=== PATIENT | male | born 1940 | race Caucasian/White ===

== ENCOUNTER 2021-09-29 13:41 | Inpatient (IN) | payer MEDICARE, OTHER ==
[~2021-09-29] VITALS: Ht 162.6 cm; Wt 60.3 kg
--- OUTSIDE RECORDS SUMMARY | 2021-09-29 13:47 | XMS REPORT ---
Discharge Summary 2.1 Created on: 09/28/2021 DULCE REVELES : 1940 Sex: Male Author Author DULCE ARIZA Organization Unknown Address [address] [facility] [address] [place], [place] [id number] Care Team Providers Care Jr. Java Developer Name Role Phone Xwatchlist DIRK Lott MD HOSPITALIS Attending SHYANN VIEYRA DO ER Erdoc1 ZEKE AREVALO MD [facility] Functional Status No Data Found Immunization Immunization Date Status Additional Notes Code Code System Pneumococcal conjuga te PCV 13 Pneumococcal conjugate PCV 13 2016 Completed 133 CVX Influenza, high dose seasonal Influenza, high dose seasonal 2013 Completed 135 CVX Influenza, high dose seasonal Influenza, high dose seasonal 2015 Completed 135 CVX Influenza, high dose seasonal Influenza, high dose seasonal 2016 Completed 135 CVX Influenza, high dose seasonal Influenza, high dose seasonal 2017 Completed 135 CVX Influenza, seasonal, injectable Influenza, seasonal, injectable /08/2014 Completed 141 CVX Mental Status No Data Found Results .CULTURE BLOOD ID PANEL - Collect Date/T namita: 09/19/2021 08:18 Major Wunsch-Brautkleid ID: [id number] [address] [facility] [address], [place], [place], [id number] LOINC: Test Value Unit Reference Range Code Code System KPC (carbapenem-res) N/A NEG: Not Detected mecA (methicillin-r) N/A NEG: Not Detected Brunilda/B (vanco-resis) N/A NEG: Not Detected Enterococcus Not Detected NEG: Not Detected Listeria monocytoge Not Detected NEG: Not Detected Staphylococcus Not Detected NEG: Not Detected 4059-2 LOINC Staph aureus Not Detected NEG: Not Detected 4059-2 LOINC Streptococcus Not Detected NEG: Not Detected Strep agalact (GrpB) Not Detected NEG: Not Detected Strep pneumoniae Not Detected NEG: Not Detected Strep pyogene (GrpA) Not Detected NEG: Not Detected Acinetobacter jack Not Detected NEG: Not Detected Enterobacteriaceae Not Detected NEG: Not Detected Entero cloacae cmplx Not Detected NEG: Not Detected Escherichia coli Not Detected NEG: Not Detected Klebsiella oxytoca Not Detected NEG: Not Detected Klebsiella pneumonia Not Detected NEG: Not Detected Proteus Not Detected NEG: Not Detected Serratia marcescens Not Detected NEG: Not Detected Haemophilus influen Not Detected NEG: Not Detected Neisseria meningiti Not Detected NEG: Not Detected Pseudomonas aerugino Not Detected NEG: Not Detected Alejandra albicans Not Detected NEG: Not Detected Alejandra glabrata Not Detected NEG: Not Detected Alejandra krusei Not Detected NEG: Not Detected Alejandra parapsilosis Not Detected NEG: Not Detected Alejandra tropicalis Not Detected NEG: Not Detected BEDSIDE GLUCOSE - Collect Date/Time: 22:57 [facility] [employer] ID: [id number] [address] [facility] [address], [place], [id number] LOINC: 54567-3 Test Value Unit Reference Range Code Code System GLUCOSE POCT 114 MG/DL L=70 H=100 4 1653-7 LOINC BASIC METABOLIC PANEL - Collect Date/Juvenal e: 09/18/2021 09:34 [facility] [employer] ID: [id number] [address] [facility] [address], [place], [place], [id number] LOINC: 41522-7 Test Value Unit Reference Range Code Code System GLUCOSE 131 MG/DL L=74 H=100 2 345-7 LOINC SODIUM 139 MEQ/L L=135 H=145 2 951-2 LOINC POTASSIUM 3.8 MEQ/L L=3.5 H=5.1 2 823-3 LOINC CHLORIDE 107 MEQ/L L=98 H=107 2 075-0 LOINC CO2 28 MEQ/L L=22 H=30 20 28-9 LOINC BUN 18 MG/DL L=9 H=20 30 94-0 LOINC CREATININE 0.80 MG/DL L=0.70 H=1.30 2160-0 LOINC CALCIUM 8.9 MG/DL L=8.6 H=10.3 24947-1 LOINC AGE 81 yrs GFR NonAA 93 GFR AA 113 eGFR 93 mL/min/1.7 eGFR AA* >60 CBC W/ AUTO DIFF (RFLX MAN DIFF IF IND) - Collect Date/Time: 09/18/2021 09:34 [facility] [employer] ID: [id number] [address], [place], [place], [phone] LOINC: 17039-6 Test Value Unit Reference Range Code Code System WBC 7.0 TH/CMM L=4.5 H=10.8 80497-4 LOINC RBC 2.97 ML/CMM L=4.70 H=6.10 789-8 LOINC HGB 8.8 G/DL L=14.0 H=18.0 7 18-7 LOINC HCT 29.0 % L=42.0 H=52.0 4544 -3 LOINC MCV 98 FL L=81 H=99 MCH 29.6 PG L=27.0 H=33.0 MCHC 30.3 G/DL L=31.0 H=36.0 RDW SD 53 FL L=36 H=50 RDW CV 14.8 % L=0.0 H=14.8 MPV 10.2 FL L=9.3 H=12.5 PLT 181 TH/CMM L=130 H=440 777-3 LOINC NRBC# 0.00 TH/CMM L=0.00 H=0.00 NRBC% 0.0 /100WBC L=0.0 H=2.0 %NEUT 70.2 % %LYMP 20.0 % %MONO 5.5 % %EOS 3.0 % %BASO 1.0 % #NEUT 4.94 TH/CMM L=2.10 H=8.20 #LYMP 1.41 TH/CMM L=0.90 H=5.20 #MONO 0.39 TH/CMM L=0.16 H=1.00 #EOS 0.21 TH/CMM L=0.00 H=0.80 #BASO 0.07 TH/CMM L=0.00 H=0.20 MANUAL DIFF NOT IND LACTIC ACID - Collect Date/Time: 06:05 [facility] ID: [id number] [address] [facility] [address], [place], [place], [id number] LOINC: 2524-7 Test Value Unit Reference Range Code Code System LACTIC ACID 0.8 mmol/L L=0.7 H=2.1 2524-7 LOINC LACTIC ACID - Collect Date/Time: 22:40 [facility] ID: [id number] [address] [facility] [address] [place], [place], [id number] LOINC: 2524-7 Test Value Unit Reference Range Code Code System LACTIC ACID 2.0 mmol/L L=0.7 H=2.1 2524-7 LOINC UA ROUTINE C&S IF IND - Collect Date/Juvenal e: 09/17/2021 18:00 [facility] ID: [id number] [address] [facility] [address], [place], [place], [id number] LOINC: 45490-9 Test Value Unit Reference Range Code Code System COLOR Yellow NL: YELLOW CLARITY Ex. Turbid NL: CLEAR SPEC GRAV 1.017 NL: 1.002 - 1.022 pH 8.5 NL: 5 - 9 PROTEIN 70 NL: NEGATIVE mg/dl GLUCOSE Normal NL: NEGATIVE mg/dl KETONE Negative NL: NEGATIVE mg/dl BILIRUBIN Negative NL: NEGATIVE BLOOD Trace NL: NEGATIVE NITRITE 2+ NL: NEGATIVE LEUK SCREEN 500 NL: NEGATIVE Micro Indicated? MICRO IND RBC/HPF 11-20 NL: NONE SEEN WBC/HPF TNTC NL: NONE SEEN WBC CLUMP/HPF Present NL: NONE SEEN BACTERIA/HPF 1+ NL: NONE SEEN BUDDING YEAST/HPF NL: NONE SEEN HYPHAE YEAST/HPF NL: NONE SEEN SQUAMOUS EPI/LPF None Seen NL: NONE SEEN TRANSITION EPI/HPF NL: NONE SEEN RENAL EPI/HPF NL: NONE SEEN MUCOUS/LPF NL: NONE SEEN TRICHOMONAS/HPF NL: NONE SEEN HYALINE CAST/LPF NL: NONE SEEN EPITH CAST/LPF NL: NONE SEEN WBC CAST/LPF NL: NONE SEEN RBC CAST/LPF NL: NONE SEEN GRANULAR CAST/LPF NL: NONE SEEN FATTY CAST/LPF NL: NONE SEEN WAXY CAST/LPF NL: NONE SEEN TRI PHOS ACE/HPF NL: NONE SEEN CA OX ACE/HPF NL: NONE SEEN URIC ACID ACE/HPF NL: NONE SEEN AMORPHOUS ACE/HPF NL: NONE SEEN CULT SET UP? YES CBC W/ AUTO DIFF (RFLX MAN DIFF IF IND) - Collect Date/Time: 09/17/2021 17:43 [facility] ID: [id number] [address], [place], [place], [id number] LOINC: 57255-5 Test Value Unit Reference Range Code Code System WBC 12.2 TH/CMM L=4.5 H=10.8 58772-5 LOINC RBC 2.94 ML/CMM L=4.70 H=6.10 789-8 LOINC HGB 8.8 G/DL L=14.0 H=18.0 7 18-7 LOINC HCT 28.1 % L=42.0 H=52.0 4544 -3 LOINC MCV 96 FL L=81 H=99 MCH 29.9 PG L=27.0 H=33.0 MCHC 31.3 G/DL L=31.0 H=36.0 RDW SD 51 FL L=36 H=50 RDW CV 14.7 % L=0.0 H=14.8 MPV 10.6 FL L=9.3 H=12.5 PLT 214 TH/CMM L=130 H=440 777-3 LOINC NRBC# 0.00 TH/CMM L=0.00 H=0.00 NRBC% 0.0 /100WBC L=0.0 H=2.0 %NEUT 79.3 % %LYMP 14.7 % %MONO 4.7 % %EOS 0.6 % %BASO 0.4 % #NEUT 9.70 TH/CMM L=2.10 H=8.20 #LYMP 1.80 TH/CMM L=0.90 H=5.20 #MONO 0.58 TH/CMM L=0.16 H=1.00 #EOS 0.07 TH/CMM L=0.00 H=0.80 #BASO 0.05 TH/CMM L=0.00 H=0.20 MANUAL DIFF NOT IND LIPASE - Collect Date/Time: 09/17/2021 1 7:43 [facility] ID: [id number] [address] [facility] [address], [place], [place], [id number] LOINC: 3040-3 Test Value Unit Reference Range Code Code System LIPASE 38 U/L L=23 H=300 304 0-3 LOINC LACTIC ACID - Collect Date/Time: 17:43 [facility] ID: [id number] [address] [facility] [address], [place], [place], [id number] LOINC: 2524-7 Test Value Unit Reference Range Code Code System LACTIC ACID 2.6 mmol/L L=0.7 H=2.1 2524-7 LOINC PRO BNP - Collect Date/Time: 09/17/2021 17:43 [facility] [employer] ID: [id number] [address] [facility] [address], [place], [place], [id number] LOINC: 19074-8 Test Value Unit Reference Range Code Code System PRO BNP 793 PG/ML L=0 H=450 3 0934-4 LOINC TROPONIN-I ADV - Collect Date/Time: 08/31 17:43 [facility] ID: [id number] [address] [facility] [address], [place], [place], [id number] LOINC: 54429-6 Test Value Unit Reference Range Code Code System TROPONIN-I AD < 0.034 ng/mL L=0.000 H=0.034 47784-9 LOINC COMPREHENSIVE METABOLIC PANEL - Collect Date/Time: 09/17/2021 17:43 [facility] [employer] ID: [id number] [address] [facility] [address], [place], [place], [id number] LOINC: 01274-7 Test Value Unit Reference Range Code Code System GLUCOSE 119 MG/DL L=74 H=100 2 345-7 LOINC SODIUM 137 MEQ/L L=135 H=145 2 951-2 LOINC POTASSIUM 4.2 MEQ/L L=3.5 H=5.1 2 823-3 LOINC CHLORIDE 104 MEQ/L L=98 H=107 2 075-0 LOINC CO2 28 MEQ/L L=22 H=30 20 28-9 LOINC BUN 26 MG/DL L=9 H=20 30 94-0 LOINC CREATININE 0.90 MG/DL L=0.70 H=1.30 2160-0 LOINC SGOT/AST 31 IU/L L=17 H=59 192 0-8 LOINC SGPT/ALT 26 IU/L L=0 H=50 174 2-6 LOINC ALK PHOS 72 IU/L L=38 H=126 67 68-6 LOINC TOTAL PROTEIN 6.0 G/DL L=6.3 H=8.2 28 85-2 LOINC ALBUMIN 3.4 G/DL L=3.5 H=5.0 17 51-7 LOINC TOTAL BILI 0.5 MG/DL L=0.2 H=1.3 1 975-2 LOINC CALCIUM 9.9 MG/DL L=8.6 H=10.3 13095-4 LOINC AGE 81 yrs GFR NonAA 81 GFR AA 98 eGFR 81 mL/min/1.7 eGFR AA* >60 CT HEAD W/O CONTRAST - Completed: 2020 18:24 LOINC: EXAMINATION:CT HEAD W/O CONTRAST REASON FOR EXAM:Reason for Test: Altered Mental Status/memory loss, stroke protocol COMPARISON:11/07/2020TECHNIQUE:Noncontrast CT of the head. Automated exposure control was performed using [employer] Dose Management, which adjusts mA and/or kV according to patient size.FINDINGS:No acute intracranial hemorrhage, mass effect, or midline shift.Sulcal and ventricular prominence consistent with volume loss. Nonspecific periventricular and deep white matter hypoattenuation, given the patient's age the most likely etiology is small vessel ischemic changes. The basal cisterns are patent.Intracranial atherosclerosis. Right basal ganglia chronic lacunar infarct. Additional smaller bilateral basal ganglia subcentimeter hypodensities which may represent perivascular spaces or very small chronic lacunar infarcts. Partial opacification of the bilateral mastoid air cells.Low-grade paranasal sinus mucosal thickening.IMPRESSION:No acute intracranial hemorrhage or mass effect.Additional findings as above. Early report provided by vR. Reviewed and Electronically Signed by: JOHN Ojedaigned Date/Time: 09/18/2021 8:05 AMJob ID#: [id number] CX CHEST 1 VIEW - Completed: 09/17/2021 19:13 LOINC: EXAMINATION:CX CHEST 1 VIEWREASON FOR EX AM:weakness; COMPARISON:May 28, 2021FINDINGS:The heart size, pulmonary vascularity and mediastinum stable. There is hyperexpansion of the lungs with flattening of the diaphragms. There is a vertical sharp line overlying the right lung laterally. There are lung markings peripheral to this. No significant left-sided pneumothorax is seen. No pleural effusion is evident. No airspace disease or consolidation is evident.IMPRESSION:1.There is a vertical sharp line overlying the right lung laterally. This may represent a skin fold as there are lung markings peripheral to this. A small loculated pneumothorax would be less likely. 2.Follow-up is recommended. 3.There is a background of chronic obstructive lung disease with flattening of the diaphragms. Reviewed and Electronically Signed by: Kevin Sosa MD DABORLANDOigned Date/Time: 09/18/2021 8:48 AMJob ID#: [id number] Social History Type Status Start Date End Date Code Code System Smoking History Never smoker (Never Smoked ) 625254728 SNOMED-CT Smoking History Former smoker 7520202 SNOMED-CT Vital Signs Vital Sign Value Unit Elmore Value Elmore Unit Date/Time Recent/Initial? Code Cod e System Body Mass Index 23.60 kg/m2 09/17/2021 23:43 Initial 71998-2 LOINC Systolic Blood Pressure 131 mm[Hg] 09/19/2021 15:55 Most Recent 8480-6 LOINC Diastolic Blood Pressure 60 mm[Hg] 09/19/2021 15:55 Most Recent 8462-4 LOINC Systolic Blood Pressure 107 mm[Hg] 09/17/2021 23:43 Initial 8480-6 LOINC Diastolic Blood Pressure 42 mm[Hg] 09/17/2021 23:43 Initial 8462-4 LOINC Body Surface Area 1.68 m2 09/17/2021 23:43 Initial 3140-1 LOINC Height 162.5600 cm 64.00 in 09/17/2021 23:43 Initial 8302-2 LOINC O2 Saturation 98 % 09/19/2021 15:55 Most Recent 82519-2 LOINC O2 Saturation 98 % 09/17/2021 23:43 Initial 63006-6 LOINC Pulse 53.0 /min 1 15:55 Most Recent 8867-4 LOINC Pulse 57.0 /min 1 23:43 Initial 8867-4 LOINC Respiration 20 /min 09/19/2021 15:55 Most Recent 9279-1 LOINC Respiration 16 /min 09/17/2021 23:43 Initial 9279-1 LOINC Temperature 36.3 Judy 97.3 09/19/2021 15:55 Most Recent 8310-5 LOINC Temperature 36.5 Juyd 97.7 09/17/2021 23:43 Initial 8310-5 LOINC Weight 62.37 kg 137.50 lbs 09/17/2021 23:43 Initial 65593-8 LOINC Assessment You had the following problems: UTI AMS Assessment and Plan: 1. Acute cystitis with resultind SEPSIS and hypotension: will continue IVF -continue Rocephin -follow culture 2. HTN: continue home meds 3. prior CVA: continue meds -monitor for changes 4. DM type II: continue PO meds -Accucheck AM and trend 5. Anemia: stable, no symptoms 6. Dispo: monitor response and consider transition to PO and DC when recovered Assessment and Plan: 1. Acute cystitis with resultind SEPSIS and hypotension: will continue IVF -discontinue Rocephin -change to Keflex PO for DC planning - follow culture 2. HTN: continue home meds 3. prior CVA: continue meds -monitor for changes -retart home Psyche med for confusion 4. DM type II: continue PO meds -Accucheck AM and trend -doing well, no issues 5. Anemia: stable, no symptoms 6. Dispo: monitor response and consider transition to PO and DC when recovered Hospital Discharge Instructions Should you have any questions prior to discharge, please contact a member of your healthcare team. If you have left the hospital and have any questions, please contact your primary care physician. FOLLOW UP APPOINTMENT: SEE DR. HYDE 09/26/21 AT 11:00 Please follow up with Urology regarding ongoing need for intermittent catheterization. ACTIVITY INSTRUCTIONS(list limitations): Activity as Tolerated up with assistance and home health to eval for further home needs and safety for ADL's. INSTRUCTIONS GIVEN AND DISCHARGE TO: Patient, Spouse/SO. INSTRUCTIONS GIVEN BY (TYPE IN NAME AND DATE) Jose Lazaro RN 09/19/21 PRIMARY CARE PROVIDER: Dr Huerta HOME MEDICATION INSTRUCTIONS: Take only the medications listed below.. HOME DIET: Regular. SPECIAL INSTRUCTIONS: Please have home health review medications and clarify with Dr Huerta. SCRIPTS WRITTEN BY DOCTOR GIVEN TO PATIENT? Yes, Medications electronically sent to [facility]: Aspirin, Atorvastatin, Amoxicillin/Clavulanate, Clopidogrel, Metformin. Sucralfate. FOLLOW-UP OUTPATIENT SERVICES: At your follow up with Dr Hyde, they will need to order CBC, Chem 7, and UA. Home Health services too be continued. CONTACT PHYSICIAN IF YOU EXPERIENCE ANY: fever, chills, night sweats, weakness, ssyncope, palpitations, racing heart beat, fall injury, confusion, agitation, lethargy, change in mood or behaviors, LEMONS, dizziness, lightheadedness, neurologic loss or changes. inability to ambulate, chest pain, palpitations, shortness of breath, cough. dyspnea or trouble breathing racing heart beat, blood in urine or stool. dysuria, trouble urinating or doing straight cath at home. Reason For Referral Receiving Provider: Banner Course You were admitted to [facility] on 09/17/2021 22:01 with a principal diagnosis of Sepsis, unspecified organism You were discharged from [facility] on 09/19/2021 16:53 Hospital Course by Problem: The patient was started on IV abx for treatment. He got better and hypotension and encephalopathy responded to IVF and medications. The patient had a butler placed and left in. He was transitioned to oral ABX but the final cultures revealed resistance. He has drug allergy to fluoroquinolones. He was transitioned to new ABX and toelrated this and clinically continue to improve. He and his wanted to go joe with ongoing support from Medications Medication Start Date En d Date Route Frequency Dose Code Code System Medication Instructions NS 1000 ML IV [PRED EFINED] (7983) 09/17/2021 09/18/2021 INTRAVENOUS CONT IV 125 ml/hr 7572992 RxNorm 125 ml/hr INTRAVENOUS ~~~NACL 0.9% (7983) 1000ML IV BAG 1000 ML RxNorm ASPIRIN [CHEWABLE] T AB : 81MG 09/17/2021 Unknown BY [facility] DAILYM 81 MG [id number] RxNorm 81 MG BY MOUTH DAILY WITH A MEAL METFORMIN ER [GLUCOP CUATE XR] TAB: 500MG 09/17/2021 Unknown BY [facility] BID 500 MG [id number] RxNorm 500 MG B Y MOUTH TWO TIMES A DAY CLOPIDOGREL [PLAVIX] TABLET: 75 MG 09/17/2021 Unknown BY [facility] DAILY 75 MG [id number] RxNorm 75 MG BY MOUTH DAILY ATENOLOL [TENORMIN] TAB : 25 MG 09/17/2021 Unknown BY [facility] BID 12.5 MG [id number] RxNorm 12.5 MG BY MOUTH TWO TIMES A DAY TAMSULOSIN [FLOMAX] CAP: 0.4MG 09/17/2021 Unknown BY [facility] BID 0.4 MG [id number] RxNorm 0.4 MG B Y MOUTH TWO TIMES A DAY OMEGA-3 FATTY ACIDS [FISH OIL] CAP 09/17/2021 Unknown BY [facility] DAILY 1000 MG RxNorm 1000 MG BY MOUTH DAILY SUCRALFATE [CARAFATE ] TABLET : 1 GM 09/17/2021 Unknown BY [facility] BID 1 GM [id number] RxNorm 1 GM BY MOUTH TWO TIMES A DAY ATORVASTATIN [LIPITO R] TABLET : 20 MG 09/17/2021 Unknown BY [facility] BEDTIME 80 MG [id number] RxNorm 80 MG BY MOUTH AT BEDTIME CEPHALEXIN [KEFLEX] CAPSULE : 500 MG 09/18/2021 09/19/2021 BY MOUTH TID 500 MG [id number] RxNorm 500 MG B Y MOUTH THREE TIMES A DAY OLANZAPINE [ZyPREXA] TABLET: 10MG 09/18/2021 Unknown BY [facility] DAILY 5 MG [id number] RxNorm 5 MG BY MOUTH DAILY BETHANECOL [URECHOLI NE] TABLET : 25 MG 09/18/2021 Unknown BY [facility] QID 25 MG [id number] RxNorm 25 MG BY MOUTH FOUR TIMES A DAY PANTOPRAZOLE [PROTON IX] TABLET : 40 MG 09/18/2021 Unknown BY [facility] DAILY 40 MG [id number] RxNorm 40 MG BY MOUTH DAILY FINASTERIDE [PROSCAR ] TAB : 5 MG 09/18/2021 Unknown BY [facility] DAILY 5 MG [id number] RxNorm 5 MG BY MOUTH DAILY Aspirin 81MG Oral Ta blet, Chewable 09/19/2021 Unknown BY [facility] DAILY WITH A MEAL 81 MILLIGRAMS 339939 RxNorm 81 MILLIGRAMS BY MOUTH DAILY WITH A MEAL Atorvastatin Calcium 20MG Oral Tablet 09/19/2021 Unknown BY [facility] BEDTIME 80 MILLIGRAMS 61 7310 RxNorm 80 LITZY GRAMS BY MOUTH BEDTIME Amoxicillin/Clavulan ate Potassium 500MG-125MG Oral Tablet 09/19/2021 Unknown BY MOUTH TWICE WITH MEALS 500 MILLIGRAMS 642484 RxNorm 500 MILLIGRAMS BY MOUTH TWICE WITH MEALS Clopidogrel 75MG Ora l Tablet 09/19/2021 Unknown BY [facility] DAILY 75 MILLIGRAMS 3093 62 RxNorm 75 LITZY GRAMS BY MOUTH DAILY metFORMIN HCl 500MG Oral Tablet, Extended Release 09/19/2021 Unknown BY MOUTH TWO TIMES A DAY 500 MILLIGRAMS 436557 RxNorm 500 MILLIGRAMS BY MOUTH TWO TIMES A DAY Sucralfate 1GM Oral Tablet 09/19/2021 Unknown BY [facility] TWO TIMES A DAY 1 GRAM 3 75858 RxNorm 1 GRAM B Y MOUTH TWO TIMES A DAY Atenolol 25MG Oral T ablet 09/19/2021 Unknown ORAL DAILY 25 MILLIGRAMS 453773 RxNorm 25 LITZY GRAMS ORAL DAILY Bethanechol Chloride 25MG Oral Tablet 09/19/2021 Unknown ORAL FOUR TIMES A DAY 25 MILLIGRAMS 598647 RxNorm 25 MILLIGRAMS ORAL FOUR TIMES A DAY Finasteride 5MG Oral Tablet 09/19/2021 Unknown ORAL DAILY 5 MILLIGRAMS 15659 6 RxNorm 5 MILLIG ARIES ORAL DAILY Montelukast Sodium 1 0MG Oral Tablet 09/19/2021 Unknown ORAL DAILY 10 MILLIGRAMS 2001 24 RxNorm 10 LITZY GRAMS ORAL DAILY OLANZapine 5MG Oral Tablet 09/19/2021 Unknown ORAL DAILY 5 MILLIGRAMS 27250 8 RxNorm 5 MILLIG ARIES ORAL DAILY Protonix 40 MG Oral Tablet, Delayed Release 09/19/2021 Unknown ORAL DAILY 40 MG 055434 RxNorm 40 MG O RAL DAILY Tamsulosin HCl 0.4MG Oral Capsule 09/19/2021 Unknown ORAL DAILY 0.4 MILLIGRAMS 863 669 RxNorm 0.4 MILL IGRAMS ORAL DAILY AUGMENTIN (COMBO PRO DUCT) TAB : 500 MG 09/19/2021 09/26/2021 BY MOUTH BIDM 500 MG 289834 RxNorm 500 MG B Y MOUTH WITH MEALS 2 TIMES Procedures Procedure Name Date Stat us Code Code System APPENDECTOMY completed 190277128 SNOM ED CT LASIK completed 127350790 SNOM ED CT Kidney stone completed 19733065 SNOME D CT Implants No Data Found Problems Problem Start Date Resol ray Date Status Code Code System UTI 09/17/2021 active 07053296 SNOMED-CT AMS 09/17/2021 active 727089147 SNOMED-CT CAD (CORONARY ARTERY DISEASE) 06/08/2017 resolved SNOMED-CT TONY (ACUTE KIDNEY INJURY) 11/13/2012 resolved 25208864 SNOMED -CT GI BLEED 06/08/2017 resolved 94487883 SNOMED-CT SEPSIS 11/08/2020 resolved 39178641 SNOMED-CT ACUTE RESPIRATORY DISTRESS 11/08/2020 resolved 224081544 SNOME D-CT NIDDM 09/18/2021 resolved 82210448 SNOMED-CT ACUTE STROKE 11/08/2020 09/18/2021 resolved 271421505325503 SNOMED-CT BLADDER CANCER 020 resolved 590617150 SNOME D-CT BLEEDING STOMACH ULCER 11/08/2020 resolved 70090079 SNOMED -CT Benign prostatic hyperplasia 05/02/2017 active 925684946 SNOMED- CT Urge incontinence of urine 07/23/2017 active 23345847 SNOMED-C T Hyperlipidemia active 49863105 SNOMED-CT Raised prostate specific antigen 7 active 858853614 SNOMED- CT Diabetes mellitus type 2 active 42694311 SNOMED-C T Urgent desire to urinate 07/23/2017 active 92617608 SNOMED-C T History of kidney stone 07/18/2017 active 694431859 SNOMED- CT Malignant tumor of urinary bladder 0 07/18/2017 active 604491720 SNOMED-CT CA IN SITU BLADDER active SNOMED-CT Retention of urine 07/18/2017 active 285829883 SNOMED- CT COPD 09/18/2021 resolved 33760283 SNOMED-CT DEMENTIA 09/18/2021 resolved 38375009 SNOMED-CT CVA 09/18/2021 resolved 235445131 SNOMED-CT PVD 09/18/2021 resolved 370578158 SNOMED-CT DIVERTICULITIS 021 resolved 047384751 SNOME D-CT FELIBERTO [place] SPOTTED FEVER 09/18/2021 resolved 124052080 SNOME D-CT ULCER 09/18/2021 resolved 882779262 SNOMED-CT HTN 09/18/2021 resolved 39054219 SNOMED-CT HLD 09/18/2021 resolved 10388659 SNOMED-CT NIDDM 09/18/2021 resolved 25147268 SNOMED-CT BLADDER CANCER 021 resolved 573390510 SNOME D-CT CAD 09/18/2021 resolved 08656116 SNOMED-CT PYELONEPHRITIS 012 resolved 43603407 SNOMED -CT BPH 09/18/2021 resolved 209241850 SNOMED-CT SEPSIS 11/13/2012 resolved 59418308 SNOMED-CT Allergies Allergy Substance Reaction Severity Start Date Concern Status Code Code System TETANUS TOXOID Active 167462 RxNorm CIPRO Confusion (SNOMED-CT: 791043210) Active 422218 RxNorm Plan of Treatment US Carotid Duplex Complex/Bilateral 07/04/2021 Event Monitor - 30 Days 12/06/2020 Event Monitor - 30 Days 08/16/2020 US Echo 2D M-Mode Complete 0 Lexiscan Myoview 06/19/2020 CTA Abdomen Aorta/Fem R/O W&W/O Contrast 06/19/2020 Encounters Encounter Diagnosis Start Date Code Code System Sepsis, unspecified organism 09/17/2021 SNOMED-CT Goals No Data Found Discharge Medications No Data Found Discharge Diagnosis Discharge Diagnosis Diagnosis Code Start Date Sepsis, unspecified organism A419 09/17/2021 Health Concerns Section No Data Found
--- OUTSIDE RECORDS SUMMARY | 2021-09-29 13:48 | XMS REPORT ---
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 Phone MAUREEN CORONA PCP Mike Mckeon V PreferredProvider Unavailable Allergies and Adverse Reactions Name Reaction Notes TETANUS hives Cipro Plan of Treatment Planned Activity Comments Planned Date Planned Time Plan/Goal PSA TOTAL 04/24/2019 12:00 AM ESR 05/28/2021 12:00 AM Fecal occult blood test 06/07/2021 12:00 AM URINALYSIS W/MICRO C&S IF IND 07/06/2021 12:00 AM GI PANEL 07/27/2021 12:00 AM ABDOMEN ONE VIEW 08/01/2021 12:00 AM Medications Active Name Start Date Estimated Completion Date SIG Co mments aspirin 81 mg oral tablet,delayed release (DR/EC) take 1 tablet (81 mg) by oral route once daily tamsulosin 0.4 mg oral capsule 11/02/2020 t nola 2 capsules (0.8 mg) by oral route once daily 1/2 hour following the same meal each day atenolol 25 mg oral tablet 11/06/2020 11/01/2021 take 1/2 tablet by oral route BID for 30 days calcium citrate 200 mg (950 mg) oral tablet take 3 tablets by oral route 2 times a day omega [id number]-fish oil 1,000 mg (120 mg-180 mg) oral capsule take 1 capsule by oral route daily metformin 500 mg oral tablet 01/08/2021 01/03/2022 Sindy e 1 1/2 tablet by mouth twice daily Tamsulosin HCl 0.4 MG Oral Capsule 07/31/2021 07/26/2022 TAKE 2 CAPSULES BY MOUTH ONCE DAILY 1/2 HOUR FOLLOWING THE SAME MEAL EACH DAY finasteride 5 mg oral tablet 08/02/2021 07/28/2022 sindy e 1 tablet (5 mg) by oral route once daily for 30 days Protonix 40 mg oral tablet,delayed release (DR/EC) take 1 tablet (40 mg) by oral route once daily olanzapine 5 mg oral tablet take 1 tablet (5 mg) by oral route once daily in the evening Flonase Allergy Relief 50 mcg/actuation nasal spray,suspensi on 08/27/2021 12/25/2021 spray 1 spray (50 mcg) in each nostril b y intranasal route once daily for 30 days Mucinex 600 mg oral tablet extended release 12hr 09/12/2021 10/12/2021 take 1 tablet (600 mg) by oral route every 12 hours for 30 days montelukast 10 mg oral tablet 09/12/2021 11/11/2021 ta ke 1 tablet (10 mg) by oral route once daily in the evening for 30 days Plavix 75 mg oral tablet 09/13/2021 03/12/2022 take 1 tablet (75 mg) by oral route once daily for 90 days Name Start Date Expiration Date SIG Comments Zithromax Z-Chuy 250 mg oral tablet 02/07/2010 02/12/2010 take 2 tablets (500 mg) by oral route once daily for 1 day then 1 tablet (250 mg) by oral route once daily for 4 days isosorbide mononitrate 30 mg oral tablet extended release 24 hr 03/06/2010 04/05/2010 metformin 500 mg oral tablet 04/05/2010 05/05/2010 Plavix 75 mg oral tablet 04/05/2010 05/05/2010 tamsulosin 0.4 mg oral capsule,extended release 24hr 04/08/2010 Biaxin 500 mg oral tablet 04/10/2010 04/17/2010 take 1 tablet (500 mg) by oral route every 12 hours for 7 days ProAir HFA 90 mcg/actuation inhalation HFA aerosol inhaler 200908/08/2010 inhale 2 puffs by inhalation route every 6 hours as needed for 30 days Flovent HFA 110 mcg/actuation inhalation HFA aerosol inhaler 03/3108/08/2010 inhale 2 puffs (220 mcg) by inhalation route 2 times per day for 30 days DuoNeb 0.5 mg-3 mg(2.5 mg base)/3 mL inhalation soluti on for nebulization 04/10/2010 08/08/2010 inhale 3 milliliters by nebu lization route 4 times per day and as needed, up to 6 doses per day for 30 days Actos 30 mg oral tablet 04/10/2010 08/08/2010 take 1 t ablet (30 mg) by oral route once daily for 30 days Crestor 10 mg oral tablet 04/10/2010 08/08/2010 take 1 tablet by oral route daily for 30 days Imdur 30 mg oral tablet extended release 24 hr 04/10/2010 take 1 tablet (30 mg) by oral route once daily in the morning for 30 days Cipro 250 mg oral tablet 02/03/2015 02/08/2015 take 1 tablet by oral route 2 times a day for 5 days Crestor 10 mg oral tablet take 1 tablet (10 mg) by oral route once daily at bedtime Protonix 40 mg oral tablet,delayed release (DR/EC) take 1 tablet (40 mg) by oral route 2 times per day Plavix 75 mg oral tablet take 1 tablet (7 5 mg) by oral route once daily Cipro 500 mg oral tablet 11/05/2016 11/12/2016 take 1 tablet (500 mg) by oral route every 12 hours for 7 days Flagyl 500 mg oral tablet 11/05/2016 11/12/2016 take 1 tablet (500 mg) by oral route 2 times per day for 7 days albuterol sulfate 2.5 mg /3 mL (0.083 %) inhalation so lution for nebulization 06/23/2017 12/20/2017 inhale 3 milliliters (2.5 mg ) by nebulization route 3 times per day for 30 days doxycycline hyclate 100 mg oral capsule 06/15/2018 8 take 1 capsule by oral route BID for 3 more days Cipro 500 mg oral tablet 10/29/2018 10/31/2018 take 1 tablet (500 mg) by oral route 2 times per day for 2 days finasteride 5 mg oral tablet 11/16/2018 03/16/2019 sindy e 1 tablet (5 mg) by oral route once daily for 30 days Myrbetriq 50 mg oral tablet extended release 24 hr 12/14/2018 01/13/2019 take 1 tablet (50 mg) by oral route once daily swallowing whole with water. Do not crush, chew and/or divide. for 30 days rivastigmine tartrate 6 mg oral capsule 10/05/2019 9 take 1 capsule (6 mg) by oral route 2 times per day in the morning and evening with food for 30 days Lomotil 2.5-0.025 mg oral tablet 10/11/2019 10/18/2019 take 2 tablets by mouth now then one after loose stool sildenafil 25 mg oral tablet 09/11/2020 11/10/2020 sindy e 2 tablets (50 mg) by oral route once daily as needed approximately 1 hour before sexual activity for 10 days sucralfate 1 gram oral tablet 11/13/2020 03/13/2021 ta ke 1 tablet by oral route 2 times a day for 30 days Zithromax 250 mg oral tablet 12/19/2020 12/29/2020 Sindy e 2 tablets daily x 4 days, then 1 tablet daily x 6 days Celebrex 200 mg oral capsule 01/08/2021 05/08/2021 sindy e 1 capsule (200 mg) by oral route 2 times per day for 30 days ondansetron 4 mg oral tablet,disintegrating 01/08/20212020 Take 1-2 tablets AC meals prn atorvastatin 80 mg oral tablet 03/01/2021 08/28/2021 t nola 1 tablet (80 mg) by oral route once daily for 90 days Macrobid oral capsule 100 mg 05/29/2021 06/05/2021 sindy e 1 capsule (100 mg) by oral route every 12 hours with food for 7 days Lexapro 5 mg tablet 06/06/2021 08/05/2021 take 1 table t (5 mg) by oral route once daily for 30 days levothyroxine 25 mcg tablet 06/20/2021 09/18/2021 take 1 tablet (25 mcg) by oral route once daily on an empty stomach 30 minutes before breakfast for 30 days ofloxacin 0.3 % otic (ear) drops 07/06/2021 07/13/2021 instill 10 drops into both ears by otic route once daily for 7 days Macrobid 100 mg oral capsule 07/09/2021 07/16/2021 sindy e 1 capsule (100 mg) by oral route every 12 hours with food for 7 days senna 8.6 mg oral capsule 08/07/2021 09/06/2021 take 1 capsules (8.6 mg) by oral route once daily as needed for constipation for 30 days Colace 100 mg oral capsule 08/07/2021 09/06/2021 take 1 capsule (100 mg) by oral route 2 times per day for 30 days Augmentin 875-125 mg oral tablet 08/27/2021 09/06/2021 take 1 tablet by oral route every 12 hours for 10 days cefdinir 300 mg oral capsule 08/30/2021 09/09/2021 sindy e 1 capsule (300 mg) by oral route every 12 hours for 10 days Discontinued Name Start Date Discontinued Date SIG Comments nitrofurantoin macrocrystal 50 mg oral capsule 02/03/2015 take 1 capsule by oral route daily at bedtime Zantac 150 mg oral tablet 06/23/2017 take 1 tablet (150 mg) by oral route 2 times per day Carafate 1 gram oral tablet 06/23/2017 take 1 tablet by oral route 2 times a day pravastatin 20 mg oral tablet 11/13/2020 ta ke 1 tablet (20 mg) by oral route once daily Protonix 40 mg oral tablet,delayed release (DR/EC) 08/05/2017 take 1 tablet (40 mg) by oral route once daily senna 8.6 mg oral tablet 08/05/2017 take 2 tablets by oral route once daily as needed for constipation metoclopramide HCl 10 mg oral tablet 08/05/2017 take 1 tablet (10 mg) by oral route 4 times per day 30 minutes before meals and at bedtime Miralax 17 gram oral powder in packet 08/24/2019 take 1 packet (17 gram) mixed with 8 oz. water, juice, soda, coffee or tea by oral route once daily docusate sodium 100 mg oral capsule 08/05/2017 take 1 capsule (100 mg) by oral route 2 times per day Januvia 100 mg oral tablet 06/23/2017 08/05/2017 take 1 tablet (100 mg) by oral route once daily for 30 days Proscar 5 mg oral tablet 10/28/2018 take 1 tablet (5 mg) by oral route once daily diclofenac sodium 75 mg oral tablet,delayed release (DR/EC) 08/12/2017 10/28/2018 take 1 tablet (75 mg) by oral route 2 times per day fo r 10 days Singulair 10 mg oral tablet 12/09/2017 08/24/2019 take 1 tablet (10 mg) by oral route once daily in the evening for 30 days loratadine 10 mg oral tablet 03/24/2018 08/24/2019 sindy e 1 tablet (10 mg) by oral route once daily for 90 days montelukast 10 mg oral tablet 04/20/2018 11/13/2020 TA KE ONE TABLET BY MOUTH ONCE DAILY IN THE EVENING magnesium 250 mg oral tablet 10/07/2019 take 1 table t by oral route daily potassium chloride 10 mEq oral tablet extended release 10/07/2019 take 1 tablet (10 meq) by oral route once daily with food Calcium 600 600 mg calcium (1,500 mg) oral tablet 11/13/2020 take 1 tablet by oral route 2 times a day Restasis 0.05 % ophthalmic (eye) dropperette instill 1 drop into right eye by ophthalmic route every 12 hours Myrbetriq 25 mg oral tablet extended release 24 hr 10/07/2019 take 1 tablet (25 mg) by oral route once daily swallowing whole with water. Do not crush, chew and/or divide. sildenafil (pulm.hypertension) 20 mg oral tablet 03/23/2020 09/11/2020 TAKE 2 TABLETS BY MOUTH NEEDED Cipro 500 mg oral tablet 11/02/2020 11/07/2020 take 1 tablet (500 mg) by oral route every 12 hours for 14 days oxybutynin chloride 5 mg oral tablet 11/06/2020 11/13/2020 take 2 tablet (5 mg) by oral route 2 times per day cephalexin 500 mg oral capsule 11/07/2020 11/13/2020 t nola 1 capsule (500 mg) by oral route every 12 hours for 14 days clopidogrel 75 mg oral tablet 03/01/2021 ta ke 1 tablet (75 mg) by oral route once daily Ativan 0.5 mg oral tablet 05/28/2021 Take 1 tablet B ID-TID PRN cephalexin 500 mg oral capsule 08/03/2021 08/07/2021 t nola 1 capsule (500 mg) by oral route every 12 hours for 7 days Problem List Description Status Onset Urinary tract infection Active 02/01/2015 Diabetes mellitus, type II Active Bladder Carcinoma In Situ Active Hyperlipidemia Active 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 Bladder malignancy Active 05/02/2017 Elevated prostate specific antigen [PSA] Active 05/02/2017 Cancer of bladder Active 07/18/2017 H/O renal calculi Active 07/18/2017 Retention of urine Active 07/18/2017 Urge incontinence of urine Active 07/23/2017 Urgency of micturition Active 07/23/2017 Vital Signs Date Time BP-Sys(mm[Hg] BP-Mabel(mm[Hg]) HR(bpm) RR(rpm) Temp WT HT HC BMI BSA BMI Percentile O2 Sat(%) 09/12/2021 1:06:00 PM 122 mm[Hg] 64 mm[Hg] 58 {beats}/min 16 rpm 97.5 F 129.5 lbs 64 in 22.2284 kg/m2 1.6286 m2 96 % 08/27/2021 10:35:00 AM 124 mm[Hg] 78 mm[Hg] 53 {beats}/min 16 rpm 97.9 F 128.125 lbs 64 in 21.99 kg/m2 1.62 m2 95 % 08/16/2021 10:47:00 AM 118 mm[Hg] 50 mm[Hg] 58 {beats}/min 18 rpm 98.8 F 134 lbs 64 in 23.00 kg/m2 1.6567 m2 95 % 08/07/2021 9:11:00 AM 112 mm[Hg] 72 mm[Hg] 68 {beats}/min 16 rpm 97.5 F 135.5 lbs 64 in 23.2583 kg/m2 1.67 m2 94 % 07/23/2021 1:23:00 PM 128 mm[Hg] 62 mm[Hg] 71 {beats}/min 16 rpm 98.4 F 132 lbs 64 in 22.66 kg/m2 1.6443 m2 95 % 07/13/2021 3:39:00 PM 128 mm[Hg] 80 mm[Hg] 61 {beats}/min 16 rpm 98.1 F 135.375 lbs 64 in 23.2368 kg/m2 1.67 m2 98 % 07/06/2021 3:58:00 PM 120 mm[Hg] 68 mm[Hg] 67 {beats}/min 16 rpm 97.7 F 134 lbs 64 in 23.00 kg/m2 1.6567 m2 95 % 06/06/2021 4:43:00 PM 118 mm[Hg] 78 mm[Hg] 67 {beats}/min 98.7 F 153 lbs 64 in 26.2621 kg/m2 1.77 m2 95 % 05/28/2021 5:21:00 PM 132 mm[Hg] 68 mm[Hg] 58 {beats}/min 16 rpm 97.9 F 138.375 lbs 68 in 21.04 kg/m2 1.7353 m2 96 % 12/05/2020 1:34:00 PM 128 mm[Hg] 58 mm[Hg] 56 {beats}/min 18 rpm 97.5 F 163 lbs 64 in 27.98 kg/m2 1.83 m2 94 % 11/02/2020 2:30:00 PM 166 mm[Hg] 82 mm[Hg] 58 {beats}/min 18 rpm 98.8 F 170 lbs 64 in 29.18 kg/m2 1.866 m2 95 % 10/06/2019 8:41:00 AM 140 mm[Hg] 80 mm[Hg] 74 {beats}/min 16 rpm 97.8 F 167 lbs 64 in 28.6652 kg/m2 1.85 m2 98 % 10/04/2019 8:18:00 AM 140 mm[Hg] 80 mm[Hg] 68 {beats}/min 16 rpm 97.4 F 168 lbs 64 in 28.84 kg/m2 1.855 m2 94 % 08/24/2019 12:44:00 PM 130 mm[Hg] 80 mm[Hg] 70 {beats}/min 16 rpm 97.4 F 175 lbs 64 in 30.0384 kg/m2 1.89 m2 94 % 11/16/2018 4:08:00 PM 140 mm[Hg] 70 mm[Hg] 65 {beats}/min 18 rpm 98.6 F 181.375 lbs 64 in 31.13 kg/m2 1.9274 m2 93 % 10/28/2018 3:22:00 PM 140 mm[Hg] 70 mm[Hg] 73 {beats}/min 16 rpm 98.4 F 182.25 lbs 64 in 31.2828 kg/m2 1.93 m2 95 % 12/09/2017 4:13:00 PM 144 mm[Hg] 82 mm[Hg] 72 {beats}/min 18 rpm 98.6 F 186.125 lbs 64 in 31.95 kg/m2 1.9525 m2 94 % 08/05/2017 2:02:00 PM 138 mm[Hg] 68 mm[Hg] 77 {beats}/min 18 rpm 98.7 F 181 lbs 64 in 31.0683 kg/m2 1.93 m2 93 % 07/18/2017 9:27:00 AM 158 mm[Hg] 82 mm[Hg] 82 {beats}/min 18 rpm 97.3 F 180 lbs 64 in 30.90 kg/m2 1.9201 m2 97 % 06/23/2017 4:20:00 PM 142 mm[Hg] 68 mm[Hg] 66 {beats}/min 18 rpm 98.7 F 178.125 lbs 64 in 30.5748 kg/m2 1.9101 m2 94 % 05/02/2017 10:15:00 AM 158 mm[Hg] 102 mm[Hg] 87 {beats}/min 18 rpm 98.1 F 180 lbs 64 in 30.90 kg/m2 1.92 m2 95 % 11/13/2016 3:06:00 PM 122 mm[Hg] 62 mm[Hg] 78 {beats}/min 16 rpm 98.9 F 187 lbs 64 in 32.0981 kg/m2 1.9571 m2 94 % 11/05/2016 5:11:00 PM 150 mm[Hg] 76 mm[Hg] 96 {beats}/min 98.3 F 18 1 lbs 64 in 31.07 kg/m2 1.93 m2 96 % 02/04/2016 1:31:00 PM 144 mm[Hg] 72 mm[Hg] 87 {beats}/min 98.4 F 192 lbs 64 in 32.9564 kg/m2 1.9831 m2 94 % 02/27/2015 11:30:00 AM 177 lbs 64 in 30.3817 k g/m2 1.90 m2 02/22/2015 10:42:00 AM 160 mm[Hg] 72 mm[Hg] 73 {beats}/min 20 rpm 96.7 F 177 lbs 64 in 30.38 kg/m2 1.90 m2 97 % 04/10/2010 3:44:00 PM 128 mm[Hg] 72 mm[Hg] 68 {beats}/min 16 rpm 97.5 F 194.125 lbs 65 in 32.3038 kg/m2 2.0095 m2 Social History Name Description Comments Tobacco Former smoker when smoking 1 pack per day 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 History of Procedures Date Ordered Description Order Status 02/04/2016 12:00 AM X-RAY EXAM OF FOOT Reviewed 02/04/2016 12:00 AM X-RAY EXAM OF ANKLE Reviewed 02/04/2016 12:00 AM X-RAY EXAM OF LOWER LEG Reviewed 11/05/2016 12:00 AM COMPLETE CBC W/AUTO DIFF WBC Reviewed 11/05/2016 12:00 AM COMPREHEN METABOLIC PANEL Reviewed 11/05/2016 12:00 AM X-RAY EXAM OF ABDOMEN Reviewed 04/11/2017 12:00 AM ASSAY OF PSA TOTAL Reviewed 05/02/2017 12:03 PM URINALYSIS AUTO W/O SCOPE Reviewed 07/18/2017 12:00 AM US EXAM PELVIC LIMITED Reviewed 07/18/2017 1:11 PM URINALYSIS AUTO W/O SCOPE Reviewed 08/07/2017 12:30 PM URINALYSIS AUTO W/O SCOPE Reviewed 08/05/2017 12:00 AM LYME DISEASE ANTIBODY Reviewed 08/05/2017 12:00 AM EHRLICHIA ANTIBODY Reviewed 08/05/2017 12:00 AM PROTOZOA ANTIBODY NOS Reviewed 08/05/2017 12:00 AM COMPLETE CBC W/AUTO DIFF WBC Reviewed 08/05/2017 12:00 AM COMPREHEN METABOLIC PANEL Reviewed 08/05/2017 12:00 AM URNLS DIP STICK/TABLET REAGENT AUTO MICR OSCOPY Reviewed 10/28/2018 12:00 AM URINALYSIS AUTO W/SCOPE Reviewed 10/28/2018 12:00 AM CYTOGENETIC STUDY Reviewed 10/28/2018 12:00 AM COMPLETE CBC W/AUTO DIFF WBC Reviewed 10/28/2018 12:00 AM METABOLIC PANEL TOTAL CA Reviewed 10/28/2018 12:[address] ABD & PELV 1/> REGNS Reviewed 10/28/2018 12:00 AM ELECTROCARDIOGRAM TRACING Reviewed 04/24/2019 12:00 AM URINALYSIS AUTO W/SCOPE Reviewed 09/11/2020 12:27 PM FALL RISK ASSESSMENT DOCD Reviewed 09/11/2020 12:27 PM SCREEN DEPRESSION PERFORMED Reviewed 11/02/2020 12:00 AM URINALYSIS AUTO W/SCOPE Reviewed 12/05/2020 1:49 PM US URINE CAPACITY MEASURE Reviewed 05/28/2021 12:00 AM COMPLETE CBC W/AUTO DIFF WBC Returned 05/28/2021 12:00 AM COMPREHEN METABOLIC PANEL Returned 05/28/2021 12:00 AM ASSAY OF AMYLASE Returned 05/28/2021 12:00 AM ASSAY OF LIPASE Returned 05/28/2021 12:00 AM ASSAY THYROID STIM HORMONE Returned 05/28/2021 12:00 AM URNLS DIP STICK/TABLET RGNT AUTO W/O RAYMUNDO ROSCOPY Returned 05/28/2021 12:00 AM LACTATE (LD) (LDH) ENZYME Returned 05/28/2021 12:00 AM CHEST X-RAY 2VW FRONTAL&LATL Returned 06/07/2021 12:00 AM COMPLETE CBC W/AUTO DIFF WBC Returned 06/06/2021 12:00 AM COMPREHEN METABOLIC PANEL Returned 06/06/2021 12:00 AM ASSAY THYROID STIM HORMONE Returned 06/06/2021 12:00 AM URNLS DIP STICK/TABLET RGNT AUTO W/O RAYMUNDO ROSCOPY Returned 07/23/2021 1:44 PM US URINE CAPACITY MEASURE Reviewed 07/27/2021 12:00 AM PHONE E/M PHYS/QHP 5-10 MIN Reviewed 07/27/2021 12:00 AM TeleHealth Encounter Reviewed 07/23/2021 12:00 AM URINALYSIS AUTO W/SCOPE Reviewed 08/01/2021 12:00 AM Abdomen 1 View - Clinic Reviewed 08/01/2021 12:00 AM URINALYSIS AUTO W/SCOPE Reviewed 08/01/2021 12:00 AM CYSTOSCOPY Reviewed 08/27/2021 12:00 AM URNLS DIP STICK/TABLET RGNT AUTO W/O RAYMUNDO ROSCOPY Returned 02/01/2015 12:00 AM COMPLETE CBC W/AUTO DIFF WBC Reviewed 02/01/2015 12:00 AM METABOLIC PANEL TOTAL CA Reviewed 02/01/2015 12:00 AM URINALYSIS AUTO W/SCOPE Reviewed Results Summary Date and Description Results 02/01/2015 4:00 PM WBC 19.0 RBC 4.85 HGB 14.10 g/dLHCT 43.0 %MCV 89.0 fLMCH 29.10 pgMCHC 32.80 g/dLRDW SD 46 RDW CV 14.10 %MPV 10.20 fLPLT 229 NRBC# 0.00 NRBC% 0.0 %NEUT 85.30 %%LYMP 7.40 %%MONO 7.0 %%EOS 0.10 %%BASO 0.20 %#NEUT 16.22 #LYMP 1.41 #MONO 1.33 #EOS 0.02 #BASO 0.03 MANUAL DIFF SEE BELOW SEGS 69 BANDS 19 LYMPHS 7 MONOS 5 GLUCOSE 186.0 mg/dLSODIUM 135.0 mmol/LPOTASSIUM 4.0 mmol/LCHLORIDE 99.0 mmol/LCO2 23.0 mmol/LBUN 13.0 mg/dLCREATININE 1.30 mg/dLCALCIUM 9.80 mg/dLAGE 74 GFR NonAA 54 GFR AA 65 eGFR 54 eGFR AA* >60 11/05/2016 6:00 PM WBC 9.9 RBC 5.59 HGB 16.40 g /dLHCT 50.50 %MCV 90.0 fLMCH 29.30 pgMCHC 32.50 g/dLRDW SD 40 RDW CV 11.90 %MPV 9.50 fLPLT 285 NRBC# 0.00 NRBC% 0.0 %NEUT 57.70 %%LYMP 30.30 %%MONO 8.0 %%EOS 2.90 %%BASO 0.90 %#NEUT 5.72 #LYMP 3.01 #MONO 0.79 #EOS 0.29 #BASO 0.09 MANUAL DIFF NOT IND GLUCOSE 131.0 mg/dLSODIUM 138.0 mmol/LPOTASSIUM 4.40 mmol/LCHLORIDE 100.0 mmol/LCO2 29.0 mmol/LBUN 19.0 mg/dLCREATININE 1.40 mg/dLSGOT/AST 17.0 IU/LSGPT/ALT 19.0 IU/LALK PHOS 110.0 IU/LTOTAL PROTEIN 7.60 g/dLALBUMIN 4.30 g/dLTOTAL BILI 0.40 mg/dLCALCIUM 10.20 mg/dLAGE 76 GFR NonAA 49 GFR AA 59 eGFR 49 eGFR AA* 59 04/30/2017 10:35 AM PSA TOTAL 4.840 ng/mL 05/02/2017 12:00 AM Clarity Ur CLEAR Color Ur -- ---- Glucose Ur-sCnc -VE Bilirub Ur Ql Strip -VE Ketones Ur Ql Strip -VE Sp Gr Ur Qn 1015 Hgb Ur Ql Strip -VE pH Ur-LsCnc 6.0 Prot Ur Ql Strip -VE Urobilinogen Ur-mCnc -VE Nitrite Ur Ql Strip - VE WBC Est Ur Ql Strip -VE 05/02/2017 12:03 PM Clarity Ur CLEAR Color Ur -- ---- Glucose Ur-sCnc -VE Bilirub Ur Ql Strip -VE Ketones Ur Ql Strip -VE Sp Gr Ur Qn 1015 Hgb Ur Ql Strip -VE pH Ur-LsCnc 6.0 Prot Ur Ql Strip -VE Urobilinogen Ur-mCnc -VE Nitrite Ur Ql Strip - VE WBC Est Ur Ql Strip -VE 07/18/2017 1:11 PM Clarity Ur CLEAR Color Ur -- --- Glucose Ur-sCnc -VE Bilirub Ur Ql Strip -VE Ketones Ur Ql Strip -VE Sp Gr Ur Qn 1020 Hgb Ur Ql Strip -VE pH Ur-LsCnc 6.0 Prot Ur Ql Strip -VE Urobilinogen Ur-mCnc -VE Nitrite Ur Ql Strip - VE WBC Est Ur Ql Strip -VE 08/05/2017 12:29 PM Clarity Ur CLEAR Color Ur YE LLOW Glucose Ur-sCnc NEGATIVE Bilirub Ur Ql Strip NEGATIVE Ketones Ur Ql Strip NEGATIVE Sp Gr Ur Qn 1.010 Hgb Ur Ql Strip TRACE-LYSED pH Ur-LsCnc 7.0 Prot Ur Ql Strip TRACE Urobilinogen Ur- mCnc 1.0 E.U Nitrite Ur Ql Strip NEGATIVE WBC Est Ur Ql Strip NEGATIVE 08/05/2017 3:22 PM GLUCOSE 104.0 mg/dLSODIUM 14 0.0 mmol/LPOTASSIUM 4.50 mmol/LCHLORIDE 102.0 mmol/LCO2 29.0 mmol/LBUN 16.0 mg/dLCREATININE 1.10 mg/dLSGOT/AST 23.0 IU/LSGPT/ALT 17.0 IU/LALK PHOS 108.0 IU/LTOTAL PROTEIN 7.10 g/dLALBUMIN 3.80 g/dLTOTAL BILI 0.30 mg/dLCALCIUM 9.90 mg/dLAGE 77 GFR NonAA 65 GFR AA 79 eGFR >60 mL/min/1.73 m2eGFR AA* >60 WBC 5.9 RBC 5.10 HGB 14.70 g/dLHCT 44.90 %MCV 88.0 fLMCH 28.80 pgMCHC 32.70 g/dLRDW SD 40 RDW CV 12.40 %MPV 10.0 fLPLT 207 NRBC# 0.00 NRBC% 0.0 %NEUT 55.20 %%LYMP 29.90 %%MONO 9.70 %%EOS 4.20 %%BASO 0.70 %#NEUT 3.25 #LYMP 1.76 #MONO 0.57 #EOS 0.25 #BASO 0.04 MANUAL DIFF SEE BELOW SEGS 62 BANDS 3 LYMPHS 24 MONOS 7 EOS 4.0 %ATYP LYMPHS FEW %COLOR YELLOW APPEARANCE CLEAR SPEC GRAV 1.015 pH 7.0 PROTEIN NEGATIVE GLUCOSE NEGATIVE mg/dLKETONE NEGATIVE BILIRUBIN NEGATIVE BLOOD TRACE-INTACT NITRITE NEGATIVE LEUK SCREEN NEGATIVE WBC/HPF 0-5 RBC/HPF NEGATIVE CASTS/LPF NEGATIVE /LPFCRYSTALS TRACE AMORPH MUCOUS THRDS NEGATIVE BACTERIA FEW EPITH CELLS FEW SQUAMOUS /HPFTRICHOMONAS NEGATIVE YEAST NEGATIVE CULT ORDERED YES Lyme IgG/IgM Ab <0.91 Lyme Disease Ab, Quant,IgM <0.80 RMSF, IgG, EIA Positive [facility] Spotted Fever,IgM 0.54 E. chaffeensis (HME) IgGTiter Negative titerE. chaffeensis (HME) IgMTiter Negative RMSF, IgG, IFA 1:128 10/28/2018 4:13 PM COLOR RED APPEARANCE CLOUDY SPEC GRAV 1.020 pH 6.0 PROTEIN TRACE GLUCOSE 100 KETONE TRACE BILIRUBIN NEGATIVE BLOOD LARGE NITRITE NEGATIVE LEUK SCREEN NEGATIVE WBC/HPF NEGATIVE RBC/HPF 300-500 CASTS/LPF NEGATIVE CRYSTALS NEGATIVE MUCOUS THRDS NEGATIVE BACTERIA NEGATIVE EPITH CELLS FEW SQUAMOUS TRICHOMONAS NEGATIVE YEAST NEGATIVE CULT SET UP? NO 10/29/2018 11:30 AM GLUCOSE 142 SODIUM 139 POTAS SIUM 4.7 CHLORIDE 103.0 mmol/LCO2 27 BUN 16.0 mg/dLCREATININE 1.20 mg/dLCALCIUM 9.40 mg/dLAGE 78 GFR NonAA 58 GFR AA 70 eGFR 58 eGFR AA* >60 mL/min/1.73 m2WBC 6.3 RBC 5.26 HGB 15.50 g/dLHCT 47.10 %MCV 90.0 fLMCH 29.50 pgMCHC 32.90 g/dLRDW SD 40 fLRDW CV 12.10 %MPV 9.60 fLPLT 210 NRBC# 0.00 NRBC% 0.0 %NEUT 53.9 %LYMP 33.3 %MONO 9.2 %EOS 2.4 %BASO 1.0 #NEUT 3.41 #LYMP 2.10 #MONO 0.58 #EOS 0.15 #BASO 0.06 MANUAL DIFF NOT IND COLOR YELLOW APPEARANCE CLEAR SPEC GRAV 1.020 pH 7.0 PROTEIN NEGATIVE GLUCOSE NEGATIVE KETONE NEGATIVE BILIRUBIN NEGATIVE BLOOD SMALL NITRITE NEGATIVE LEUK SCREEN NEGATIVE WBC/HPF 0-5 RBC/HPF 4-10 CASTS/LPF NEGATIVE CRYSTALS NEGATIVE MUCOUS THRDS NEGATIVE BACTERIA NEGATIVE EPITH CELLS NEGATIVE TRICHOMONAS NEGATIVE YEAST NEGATIVE CULT SET UP? NO 11/16/2018 5:14 PM COLOR YELLOW APPEARANCE MADDIE R SPEC GRAV 1.020 pH 6.5 PROTEIN NEGATIVE GLUCOSE NEGATIVE KETONE NEGATIVE BILIRUBIN NEGATIVE BLOOD LARGE NITRITE NEGATIVE LEUK SCREEN SMALL WBC/HPF 5-10 RBC/HPF 4-10 CASTS/LPF NEGATIVE CRYSTALS NEGATIVE MUCOUS THRDS NEGATIVE BACTERIA FEW EPITH CELLS NEGATIVE TRICHOMONAS NEGATIVE YEAST NEGATIVE CULT SET UP? YES 09/11/2020 12:27 PM Falls in last 6 months? No U nsteady or worry about falling? No Fall Risk Assessment Not At Risk During the past month, have you been feeling depressed? No During the past month, have you lost interest in usual activity? No 11/02/2020 4:14 PM COLOR Yellow CLARITY Clear S PEC GRAV 1.017 pH 7.0 PROTEIN Negative GLUCOSE Normal KETONE Negative BILIRUBIN Negative BLOOD Negative NITRITE Negative LEUK SCREEN Negative RBC/HPF 4-10 WBC/HPF 0-5 BACTERIA/HPF 1+ SQUAMOUS EPI/LPF Few MUCOUS/LPF Few AMORPHOUS ACE/HPF 1+ CULT SET UP? NO 12/05/2020 1:49 PM Residual Urine 18.0 mL 07/23/2021 1:44 PM Residual Urine 138.0 mL 07/23/2021 4:04 PM COLOR Light-Yellow CLARITY C lear SPEC GRAV 1.010 pH 6.0 PROTEIN Negative GLUCOSE Normal KETONE 10 BILIRUBIN Negative BLOOD 3+ NITRITE Negative LEUK SCREEN 75 RBC/HPF 0-3 WBC/HPF 0-5 WBC CLUMP/HPF None Seen BACTERIA/HPF None Seen BUDDING YEAST/HPF None Seen HYPHAE YEAST/HPF None Seen SQUAMOUS EPI/LPF Few TRANSITION EPI/HPF None Seen RENAL EPI/HPF None Seen MUCOUS/LPF None Seen CULT SET UP? YES 08/01/2021 5:06 PM COLOR Brown CLARITY Ex. Turb id SPEC GRAV 1.017 pH 7.5 PROTEIN 100 GLUCOSE Normal KETONE Negative BILIRUBIN Negative BLOOD 3+ NITRITE Negative LEUK SCREEN 500 RBC/HPF TNTC WBC/HPF TNTC BACTERIA/HPF None Seen SQUAMOUS EPI/LPF None Seen CULT SET UP? YES History Of Immunizations Name Date Admin Mfg Name Mfg Code Trade Name Lot# Route Inj Vis Given Vis Pub CVX Influenza 10/23/2016 Not Entered NE Not Entered Not Entered Not Entered 12/01/2021 12/01/2021 141 Influenza 10/15/2017 [employer]oSmith[employer] SKB Flulaval quadrivalent 4 [id number] Not Entered Not Entered 12/09/2017 07/07/2015 158 Covid-19 01/15/2021 [employer] MOD Moderna COVID-19 Vaccin e [id number] Intramuscular Left Arm 12/01/2021 12/01/2021 207 Covid-19 02/14/2021 Not Entered NE Moderna COVID-19 Vaccine [id number] Intramuscular Left Arm 12/01/2021 12/01/2021 207 History of Past Illness Name Date of Onset Comments Diabetes mellitus, type II Bladder Carcinoma In Situ Hyperlipidemia Chronic Obstructive Pulmonary Disease Back Muscle Spasm Apr 10 2010 3:45PM Obstructive Chronic Bronchitis, With Acute Exacerbation Apr 10 2010 3:45PM Medication Refill Apr 10 2010 3:45PM Urinary tract infection 02/01/2015 Adenofibromatous hypertrophy of prostate 05/02/2017 Bladder malignancy 05/02/2017 Elevated prostate specific antigen [PSA] 05/02/2017 Cancer of bladder 07/18/2017 H/O renal calculi 07/18/2017 Retention of urine 07/18/2017 Urge incontinence of urine 07/23/2017 Urgency of micturition 07/23/2017 Allergies Senile Dementia Hypertension, Benign Essential Erectile disorder, acquired, situational, mild BPH (benign prostatic hyperplasia) Diverticulitis Dry eye dementia nocturnal leg cramps Weight Loss CVA (cerebral vascular accident) Gastric Ulcer Essential (primary) hypertension CAD PVD (peripheral vascular disease) Anorexia Nausea Degenerative joint disease Urinary tract infection Feb 01 2015 3:36PM Diabetes Feb 01 2015 3:36PM Colon Cancer Screening Feb 22 2015 10:48AM Left lower quadrant abdominal pain Feb 22 2015 10:48AM Right lower quadrant abdominal pain Feb 22 2015 10:48AM Constipation Feb 22 2015 10:48AM Foot pain, right Feb 04 2016 1:38PM Toe joint pain, right Feb 04 2016 1:38PM Right calf pain Feb 04 2016 1:38PM Bruising Feb 04 2016 1:38PM Ankle pain Feb 04 2016 1:38PM Right Ankle strain, unspecified laterality, initial en counter Feb 04 2016 1:38PM Right lower quadrant abdominal pain Nov 05 2016 5:15PM Diverticulosis of intestine without blee ding, unspecified intestinal tract location Nov 05 2016 5:15PM Acid Reflux Nov 13 2016 3:09PM Dysphagia Nov 13 2016 3:09PM History of GI bleed Nov 13 2016 3:09PM Diverticulosis Nov 13 2016 3:09PM Drug therapy Apr 11 2017 9:03AM BPH (benign prostatic hypertrophy) Apr 11 2017 9:03AM Bladder malignancy May 02 2017 10:18AM Adenofibromatous hypertrophy of prostate May 02 2017 10:18AM Elevated prostate specific antigen [PSA] May 02 2017 10:18AM Bladder malignancy May 20 2017 2:56PM Adenofibromatous hypertrophy of prostate May 20 2017 2:56PM Elevated prostate specific antigen [PSA] May 20 2017 2:56PM UTI (urinary tract infection) Jun 23 2017 4:24PM Bladder cancer Jun 23 2017 4:24PM Infection and inflammatory reaction due to indwelling urethral catheter, sequela Jun 23 2017 4:24PM Cystitis, unspecified without hematuria Jun 23 2017 4:24PM Urinary retention Jun 23 2017 4:24PM BPH (benign prostatic hyperplasia) Jun 23 2017 4:24PM Dysuria Jun 23 2017 4:24PM Urinary retention Jul 18 2017 9:56AM Retention of urine Jul 18 2017 9:30AM Adenofibromatous hypertrophy of prostate Jul 18 2017 9:30AM Elevated prostate specific antigen (PSA) Jul 18 2017 9:30AM H/O renal calculi Jul 18 2017 9:30AM Cancer of bladder Jul 18 2017 9:30AM Retention of urine Jul 23 2017 9:07AM Urgency of micturition Jul 23 2017 9:07AM Urge incontinence of urine Jul 23 2017 9:07AM Adenofibromatous hypertrophy of prostate Jul 23 2017 9:07AM Muscle pain Aug 05 2017 2:10PM Acute pain of right shoulder Aug 05 2017 2:10PM Acute pain of left shoulder Aug 05 2017 2:10PM Bitten or stung by nonvenomous insect an d other nonvenomous arthropods, initial encounter Aug 05 2017 2:10PM Fatigue Aug 05 2017 2:10PM Hematuria Aug 05 2017 2:10PM [place] spotted fever Aug 12 2017 3:36PM Muscle cramps at night Aug 12 2017 3:36PM [place] spotted fever Aug 05 2017 2:10PM Diabetes Mellitus, Type II Dec 09 2017 4:18PM Fatigue Dec 09 2017 4:18PM Hyperlipidemia, Mixed Dec 09 2017 4:18PM Polyuria Dec 09 2017 4:18PM Hypertension Dec 09 2017 4:18PM Urinary Frequency Oct 28 2018 3:24PM Kidney Stones Oct 28 2018 3:24PM Hx of bladder cancer Oct 28 2018 3:24PM Elevated PSA Oct 28 2018 3:24PM BPH (benign prostatic hyperplasia) Oct 28 2018 3:24PM Bladder stone Nov 16 2018 4:16PM Elevated PSA Nov 16 2018 4:16PM BPH (benign prostatic hyperplasia) Nov 16 2018 4:16PM Dysuria Nov 02 2020 2:35PM Benign prostatic hyperplasia with lower urinary tract symptoms Nov 02 2020 2:35PM Benign prostatic hyperplasia with lower urinary tract symptoms Dec 05 2020 1:38PM Other obstructive and reflux uropathy Dec 05 2020 1:38PM Weight loss May 28 2021 5:27PM Fatigue May 28 2021 5:27PM Decreased appetite May 28 2021 5:27PM Constipation May 28 2021 5:27PM Former smoker May 28 2021 5:27PM Establishing care with new doctor, encounter for Jun 06 2021 4:47PM HTN (hypertension) Jun 06 2021 4:47PM HLD (hyperlipidemia) Jun 06 2021 4:47PM T2DM (type 2 diabetes mellitus) Jun 06 2021 4:47PM History of stroke Jun 06 2021 4:47PM Weight loss Jun 06 2021 4:47PM Depression Jun 06 2021 4:47PM Anemia Jun 06 2021 4:47PM Anemia Jun 07 2021 9:50AM Weight loss Jun 07 2021 9:50AM Increased sleeping Jun 07 2021 9:50AM Lethargy Jun 07 2021 9:50AM Altered mental status Jun 07 2021 9:50AM Urinary hesitancy Jul 06 2021 4:59PM Urinary frequency Jul 06 2021 4:59PM Dysuria Jul 06 2021 4:59PM Urinary hesitancy Jul 06 2021 4:07PM Urinary frequency Jul 06 2021 4:07PM Dysuria Jul 06 2021 4:07PM Otitis externa Jul 06 2021 4:07PM Depression Jul 06 2021 4:07PM Tympanic membrane rupture Jul 06 2021 4:07PM Kidney Stones Jul 23 2021 1:23PM Diarrhea Jul 27 2021 11:33AM Weight loss Jul 27 2021 11:33AM Urinary frequency Jul 13 2021 3:43PM Diarrhea Jul 13 2021 3:43PM Straining to void Jul 23 2021 1:23PM Constipated Jul 23 2021 1:23PM Hx of bladder cancer Jul 23 2021 1:23PM Kidney Stones Aug 01 2021 9:52AM Straining to void Aug 01 2021 9:52AM Constipated Aug 01 2021 9:52AM Hx of bladder cancer Aug 01 2021 9:52AM Benign prostatic hyperplasia with lower urinary tract symptoms Sep 2020 9:50AM Other obstructive and reflux uropathy Sep 2020 9:50AM Dehydration Sep 2020 9:50AM Constipation Aug 01 2021 9:50AM Hx of completed stroke Sep 2020 9:50AM Kidney stone Sep 2020 9:58AM History of bladder cancer Sep 2020 9:50AM Kidney stones Sep 2020 9:50AM Constipation Aug 07 2021 9:16AM Dysuria Aug 07 2021 9:16AM Weight loss Aug 07 2021 9:16AM Benign prostatic hyperplasia with lower urinary tract symptoms Aug 16 2021 10:48AM Urinary obstruction Aug 16 2021 10:48AM Urinary hesitancy Aug 27 2021 11:02AM Cloudy urine Aug 27 2021 11:02AM Urinary hesitancy Aug 27 2021 10:39AM Cloudy urine Sep 2020 10:39AM Depression Aug 27 2021 10:39AM Cough Sep 12 2021 1:08PM Allergic rhinitis Sep 12 2021 1:08PM Postnasal drip Sep 12 2021 1:08PM Anemia Sep 12 2021 1:08PM Benign prostatic hyperplasia with lower urinary tract symptoms Sep 20 2021 3:21PM Other obstructive and reflux uropathy Sep 20 2021 3:21PM Urinary retention Sep 20 2021 3:21PM Payers Insurance Name Company Name Plan Name Plan Number Policy Number Frankie cy Group Number Start Date [facility] [id number] [facility] [id number] N/A Medicare Part B Medicare Of [place] [id number] May [place] Medical Assistance Program [facility] Mariusz [place] [id number] N/A [place] [id number] N/A Medicare Part A Medicare Part A [id number] May Medicare Part A Medicare - Lab/Xray [id number] May Medicare RHC Medicare RHC [id number] N/A Medicare Part B Medicare Of [place] [id number] N/A History of Encounters Visit Date Visit Type Provider 09/20/2021 Office visit MAUREEN CORONA VESSEL SCRAPPER 09/12/[address] Shukri Hyde MD 08/27/[address] Shukri Hyde MD 08/16/2021 Office visit Cholo Hyde MD 08/07/[address] Shukri Hyde MD 08/01/2021 Procedures Cholo Hyde MD 07/27/[address] Shukri Hyde MD 07/23/2021 Office visit Cholo Hyde MD 07/13/[address] Shukri Hyde MD 07/06/[address] Shukri Hyde MD 06/06/[address] Shukri Hyde MD 05/28/2021 Office visit Malaika NAGY RN 01/08/2021 Office visit Mike V. Linda DO 12/19/2020 Office visit Mike V. Linda DO 12/05/2020 Office visit MAUREEN CORONA VESSEL SCRAPPER 11/14/2020 Office visit Mike V. Linda DO 11/08/[address] [facility] [address] Kevin Ruth MD 11/06/2020 Office visit Mike V. Linda DO 11/04/2020 [facility] Mary Tapia MD 11/02/2020 Office visit MAUREEN CORONA VESSEL SCRAPPER 09/11/2020 Office visit Mike V. Linda DO 10/06/2019 Office visit Mike V. Linda DO 10/05/2019 [facility] Mary Tapia MD 10/04/2019 Office visit Mike V. Linda DO 08/24/2019 Office visit Mike V. Linda DO 12/24/2018 Office visit Mike V. Linda DO 12/22/2018 Office visit Mike V. Linda DO 11/16/2018 Office visit Cholo Hyde MD 11/06/2018 Surgery Cholo Hyde MD 10/28/2018 Office visit Cholo Hyde MD 09/15/2018 Office visit Mike V. Linda DO 08/20/2018 [facility] Mary Tapia MD 05/11/2018 Office visit Mike Mckeon DO 12/09/2017 Office visit Ashia Navarrete MD 08/05/2017 Office visit 08/05/2017 Office visit Hemalatha Arreola Wauna APR N 07/18/2017 Office visit Roscoe Brownlee MD 06/23/2017 Office visit Ashia Navarrete MD 06/08/2017 [facility] 06/08/2017 [facility] Mary Tapia MD 06/08/2017 Surgery Roscoe Brownlee MD 06/02/2017 Surgery Roscoe Brownlee MD 05/02/2017 Office visit Roscoe Brownlee MD 11/13/2016 Office visit Ashia Navarrete MD 11/05/2016 Office visit Gurwinder Alcala APR N 05/21/2016 [facility] Mary Tapia MD 02/04/2016 Office visit Geronimo Ansari VESSEL SCRAPPER 03/09/2015 [facility] Jamal Guevara MD 03/03/2015 Surgery Roscoe Brownlee MD 02/27/2015 Office visit Roscoe Brownlee MD 02/22/2015 Office visit Jamal Guevara MD 02/01/2015 Office visit Roscoe Brownlee MD 11/14/2012 [facility] Deysi Melo MD 11/14/2012 [facility] Mary Tapia MD 11/13/2012 [facility] SHANNON GOLDSTEIN MD 11/05/2012 [facility] DO 11/04/2012 [facility] DO 11/02/2012 [facility] 04/10/2010 Office visit Ernestina SHIELDS
--- OUTSIDE RECORDS SUMMARY | 2021-09-29 13:48 | XMS REPORT ---
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 Name Role Phone Shukri Hyde PCP Mike Mckeon V PreferredProvider Unavailable Allergies and Adverse Reactions Name Reaction Notes TETANUS hives Cipro Plan of Treatment Planned Activity Comments Planned Date Planned Time Plan/Goal PSA TOTAL 04/24/2019 12:00 AM ESR 05/28/2021 12:00 AM Fecal occult blood test 06/07/2021 12:00 AM URINALYSIS W/MICRO C&S IF IND 07/06/2021 12:00 AM GI PANEL 07/27/2021 12:00 AM ABDOMEN ONE VIEW 08/01/2021 12:00 AM URINALYSIS ROUTINE C&S IF IND 08/27/2021 12:00 AM Medications Active Name Start Date [...] oral route 2 times a day omega 4-jzp-ali-fish oil 1,000 mg (120 mg-180 mg) oral capsule take 1 capsule by oral route daily metformin 500 mg oral tablet 01/08/2021 01/03/2022 Sindy e 1 1/2 tablet by mouth twice daily Clopidogrel Bisulfate 75 MG Oral Tablet 03/01/2021 Take 1 tablet by mouth once daily atorvastatin 80 mg oral tablet 03/01/2021 08/28/2021 t nola 1 tablet (80 mg) by oral route once daily for 90 days levothyroxine 25 mcg tablet 06/20/2021 09/18/2021 take 1 tablet (25 mcg) by oral route once daily on an empty stomach 30 minutes before breakfast for 30 days Tamsulosin HCl 0.4 MG Oral Capsule 07/31/2021 07/26/2022 TAKE 2 CAPSULES BY MOUTH ONCE DAILY 1/2 HOUR FOLLOWING THE SAME MEAL EACH DAY finasteride 5 mg oral tablet 08/02/2021 07/28/2022 sindy e 1 tablet (5 mg) by oral route once daily for 30 days senna 8.6 mg oral capsule 08/07/2021 09/06/2021 take 1 capsules (8.6 mg) by oral route once daily as needed for constipation for 30 days Colace 100 mg oral capsule 08/07/2021 09/06/2021 take 1 capsule (100 mg) by oral route 2 times per day for 30 days Protonix 40 mg oral [...] intranasal route once daily for 30 days Name Start Date Expiration Date SIG [...] 01/08/20212020 Take 1-2 tablets AC meals prn Macrobid oral capsule 100 mg 05/29/2021 06/05/2021 sindy e 1 capsule (100 mg) by oral route every 12 hours with food for 7 days Lexapro 5 mg tablet 06/06/2021 08/05/2021 take 1 table t (5 mg) by oral route once daily for 30 days ofloxacin 0.3 % otic (ear) drops 07/06/2021 07/13/2021 instill 10 drops into both ears by otic route once daily for 7 days Macrobid 100 mg oral capsule 07/09/2021 07/16/2021 sindy e 1 capsule (100 mg) by oral route every 12 hours with food for 7 days Augmentin 875-125 mg oral tablet 08/07/2021 08/17/2021 take 1 tablet by oral route every [...] HC BMI BSA BMI Percentile O2 Sat(%) 08/27/2021 10:35:00 AM 124 mm[Hg] 78 mm[Hg] 53 {beats}/min 16 rpm 97.9 F 128.125 lbs 64 in 21.9924 kg/m2 1.62 m2 95 % 08/16/2021 10:47:00 AM 118 mm[Hg] 50 mm[Hg] 58 {beats}/min 18 rpm 98.8 F 134 lbs 64 in 23.00 kg/m2 1.66 m2 95 % 08/07/2021 9:11:00 AM 112 mm[Hg] 72 mm[Hg] 68 {beats}/min 16 rpm 97.5 F 135.5 lbs 64 in 23.2583 kg/m2 1.6659 m2 94 % 07/23/2021 1:23:00 PM 128 mm[Hg] 62 mm[Hg] 71 {beats}/min 16 rpm 98.4 F 132 lbs 64 in 22.66 kg/m2 1.64 m2 95 % 07/13/2021 3:39:00 PM 128 mm[Hg] 80 mm[Hg] 61 {beats}/min 16 rpm 98.1 F 135.375 lbs 64 in 23.2368 kg/m2 1.6652 m2 98 % 07/06/2021 3:58:00 PM 120 mm[Hg] 68 mm[Hg] 67 {beats}/min 16 rpm 97.7 F 134 lbs 64 in 23.00 kg/m2 1.66 m2 95 % 06/06/2021 4:43:00 PM 118 mm[Hg] 78 mm[Hg] 67 {beats}/min 98.7 F 153 lbs 64 in 26.2621 kg/m2 1.7703 m2 95 % 05/28/2021 5:21:00 PM 132 mm[Hg] 68 mm[Hg] 58 {beats}/min 16 rpm 97.9 F 138.375 lbs 68 in 21.04 kg/m2 1.74 m2 96 % 12/05/2020 1:34:00 PM 128 mm[Hg] 58 mm[Hg] 56 {beats}/min 18 rpm 97.5 F 163 lbs 64 in 27.9786 kg/m2 1.8272 m2 94 % 11/02/2020 2:30:00 PM 166 mm[Hg] 82 mm[Hg] 58 {beats}/min 18 rpm 98.8 F 170 lbs 64 in 29.18 kg/m2 1.87 m2 95 % 10/06/2019 8:41:00 AM 140 mm[Hg] 80 mm[Hg] 74 {beats}/min 16 rpm 97.8 F 167 lbs 64 in 28.6652 kg/m2 1.8495 m2 98 % 10/04/2019 8:18:00 AM 140 mm[Hg] 80 mm[Hg] 68 {beats}/min 16 rpm 97.4 F 168 lbs 64 in 28.84 kg/m2 1.85 m2 94 % 08/24/2019 12:44:00 PM 130 mm[Hg] 80 mm[Hg] 70 {beats}/min 16 rpm 97.4 F 175 lbs 64 in 30.0384 kg/m2 1.8933 m2 94 % 11/16/2018 4:08:00 PM 140 mm[Hg] 70 mm[Hg] 65 {beats}/min 18 rpm 98.6 F 181.375 lbs 64 in 31.13 kg/m2 1.93 m2 93 % 10/28/2018 3:22:00 PM 140 mm[Hg] 70 mm[Hg] 73 {beats}/min 16 rpm 98.4 F 182.25 lbs 64 in 31.2828 kg/m2 1.9321 m2 95 % 12/09/2017 4:13:00 PM 144 mm[Hg] 82 mm[Hg] 72 {beats}/min 18 rpm 98.6 F 186.125 lbs 64 in 31.95 kg/m2 1.95 m2 94 % 08/05/2017 2:02:00 PM 138 mm[Hg] 68 mm[Hg] 77 {beats}/min 18 rpm 98.7 F 181 lbs 64 in 31.0683 kg/m2 1.9254 m2 93 % 07/18/2017 9:27:00 AM 158 mm[Hg] 82 mm[Hg] 82 {beats}/min 18 rpm 97.3 F 180 lbs 64 in 30.90 kg/m2 1.92 m2 97 % 06/23/2017 4:20:00 PM 142 [...] 02/27/2015 11:30:00 AM 177 lbs 64 in 30.38 kg/ m2 1.90 m2 02/22/2015 10:42:00 AM 160 mm[Hg] [...] W/SCOPE Reviewed 08/01/2021 12:00 AM CYSTOSCOPY Reviewed 02/01/2015 12:00 AM COMPLETE CBC W/AUTO DIFF [...] Ab, Quant,IgM <0.80 RMSF, IgG, EIA Positive [facility] Spotted Fever,IgM 0.54 E. chaffeensis (HME) IgGTiter [...] Not Entered 12/09/2017 07/07/2015 158 Covid-19 01/15/2021 Moderna Alorica. MOD Moderna COVID-19 Vaccin e [id number] Intramuscular Left Arm 12/01/2021 12/01/2021 207 Covid-19 [...] 2017 2:10PM Hematuria Aug 05 2017 2:10PM [place] spotted fever Aug 12 2017 3:36PM Muscle cramps at night Aug 12 2017 3:36PM [place] spotted fever Aug 05 2017 2:10PM Diabetes [...] hyperplasia with lower urinary tract symptoms Aug 01 2021 9:50AM Other obstructive and reflux uropathy Aug 01 2021 9:50AM Dehydration Aug 01 2021 9:50AM Constipation Aug 01 2021 9:50AM Hx of completed stroke Aug 01 2021 9:50AM Kidney stone Sep 2020 9:58AM History of bladder cancer Sep 2020 9:50AM Kidney stones Sep 2020 9:50AM Constipation Aug 07 2021 9:16AM Dysuria Aug 07 2021 9:16AM Weight loss Aug 07 2021 9:16AM Benign prostatic hyperplasia with lower urinary tract symptoms Sep 2020 10:48AM Urinary obstruction Sep 2020 10:48AM Urinary hesitancy Aug 27 2021 11:02AM Cloudy urine Aug 27 2021 11:02AM Urinary hesitancy Sep 2020 10:39AM Cloudy urine Sep 2020 10:39AM Depression Aug 27 2021 10:39AM Payers Insurance Name Company Name Plan Name Plan Number Policy Number Frankie cy Group Number Start Date [facility] [id number] [facility] [id number] N/A Medicare Part B Medicare Of [place] [id number] May [place] Medical Assistance [facility] Mariusz tance Pro [id number] N/A [place] State [facility] [id number] N/A Medicare Part A Medicare Part A [id number] May Medicare Part A Medicare - Lab/Xray [id number] May Medicare RHC Medicare RHC [id number] N/A Medicare Part B Medicare Of [place] [id number] N/A History of Encounters Visit Date Visit Type Provider 08/27/[address] Shukri Hyde MD [...] Malaika NAGY RN 01/08/2021 Office visit Mike Mckeon DO 12/19/2020 Office visit Mike Mckeon DO 12/05/2020 Office visit MAUREEN CORONA MEAT BLENDER 11/14/2020 Office visit Mike V. Linda DO 11/08/[address] Kevin Ruth MD 11/06/2020 Office visit Mike V. Linda DO 11/04/2020 [facility] Mary Tapia MD 11/02/2020 Office visit MAUREEN CORONA MEAT BLENDER 09/11/2020 Office visit Mike V. Linda DO 10/06/2019 Office visit Mike V. Linda DO 10/05/2019 [facility] Mary Tapia MD 10/04/2019 Office visit Mike V. Linda DO 08/24/2019 Office visit Mike V. Linda DO 12/24/2018 Office visit Mike V. Linda DO 12/22/2018 Office visit Mike V. Linda DO 11/16/2018 Office visit Cholo Hyde MD 11/06/2018 Surgery Cholo Hyde MD 10/28/2018 Office visit Cholo Hyde MD 09/15/2018 Office visit Mike V. Linda DO 08/20/2018 [facility] Mary Tapia MD 05/11/2018 Office visit Mike V. Linda DO 12/09/2017 Office visit Ashia Navarrete MD 08/05/2017 Office visit 08/05/2017 Office visit Hemalatha Tejeda APR N 07/18/2017 Office visit Roscoe Brownlee MD 06/23/2017 Office visit Ashia Navarrete MD 06/08/2017 [facility] DO 06/08/2017 [facility] Mary Tapia MD 06/08/2017 Surgery Roscoe Brownlee MD 06/02/2017 Surgery Roscoe Brownlee MD 05/02/2017 Office visit Roscoe Brownlee MD 11/13/2016 Office visit Ashia Navarrete MD 11/05/2016 Office visit Gurwinder Alcala APR N 05/21/2016 [facility] Mary Tapia MD 02/04/2016 Office visit Geronimo Ansari MEAT BLENDER 03/09/2015 [facility] Jamal Guevara MD 03/03/2015 Surgery Roscoe Brownlee MD 02/27/2015 Office visit Roscoe Brownlee MD 02/22/2015 Office visit Jamal Guevara MD 02/01/2015 Office visit Roscoe Brownlee MD 11/14/2012 [facility] Deysi Melo MD 11/14/2012 [facility] Mary Tapia MD 11/13/2012 [facility] Bouman DO 11/06/2012 [facility] SHANNON GOLDSTEIN MD 11/05/2012 [facility] DO 11/04/2012 [facility] DO 11/02/2012 [facility] DO 04/10/2010 Office visit Ernestina SHIELDS
--- OUTSIDE RECORDS SUMMARY | 2021-09-29 13:48 | XMS REPORT ---
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 Spotted Fever,IgM 0.54 E. chaffeensis (HME) IgGTiter [...] Not Entered 12/09/2017 07/07/2015 158 Covid-19 01/15/2021 AMX MOD Moderna COVID-19 Vaccin e [id number] Intramuscular Left Arm 12/01/2021 12/01/2021 207 Covid-19 [...] 2017 2:10PM Hematuria Aug 05 2017 2:10PM [place] spotted fever Aug 12 2017 3:36PM Muscle cramps at night Aug 12 2017 3:36PM [place] spotted fever Aug 05 2017 2:10PM Diabetes [...] Number Frankie cy Group Number Start Date [facility] [id number] [facility] [id number] N/A Medicare Part B Medicare Of [place] [id number] May [place] Medical Assistance Program [facility] Mariusz [place] [id number] N/A [place] [id number] N/A Medicare Part A Medicare Part A [id number] May Medicare Part A Medicare - Lab/Xray [id number] May Medicare RHC Medicare RHC [id number] N/A Medicare Part B Medicare Of [place] [id number] N/A History of Encounters Visit Date Visit Type Provider 09/20/2021 Office visit MAUREEN CORONA TUBE CUTTER 09/12/[address] Shukri Hyde MD [...] Linda DO 12/05/2020 Office visit MAUREEN CORONA TUBE CUTTER 11/14/2020 Office visit Mike V. Linda DO 11/08/[address] [facility] [address] Kevin Ruth MD 11/06/2020 Office visit Mike V. Linda DO 11/04/2020 [facility] Mary Tapia MD 11/02/2020 Office visit MAUREEN CORONA TUBE CUTTER 09/11/2020 Office visit Mike V. Linda DO 10/06/2019 Office visit Mike V. Linda DO 10/05/2019 [facility] Mary Tapia MD 10/04/2019 Office visit Mike V. Linda DO 08/24/2019 Office visit Mike V. Linda DO 12/24/2018 Office visit Mike V. Linda DO 12/22/2018 Office visit Mike V. Linda DO 11/16/2018 Office visit Cholo Hyde MD 11/06/2018 Surgery Cholo Hyde MD 10/28/2018 Office visit Cholo Hyde MD 09/15/2018 Office visit Mike V. Linda DO 08/20/2018 [facility] Mary Tapia MD 05/11/2018 Office visit Mike Mckeon DO 12/09/2017 Office visit Ashia Navarrete MD 08/05/2017 Office visit 08/05/2017 Office visit Hemalatha Arreola [place] APR N 07/18/2017 Office visit Roscoe Brownlee MD 06/23/2017 Office visit Ashia Navarrete MD 06/08/2017 [facility] 06/08/2017 [facility] Mary Tapia MD 06/08/2017 Surgery Roscoe Brownlee MD 06/02/2017 Surgery Roscoe Brownlee MD 05/02/2017 Office visit Roscoe Brownlee MD 11/13/2016 Office visit Ashia Navarrete MD 11/05/2016 Office visit Gurwinder Alcala APR N 05/21/2016 [facility] Mary Tapia MD 02/04/2016 Office visit Geronimo Ansari TUBE CUTTER 03/09/2015 [facility] Jamal Guevara MD 03/03/2015 Surgery Roscoe Brownlee MD 02/27/2015 Office visit Roscoe Brownlee MD 02/22/2015 Office visit Jamal Guevara MD 02/01/2015 Office visit Roscoe Brownlee MD 11/14/2012 [facility] Deysi Melo MD 11/14/2012 [facility] Mary Tapia MD 11/13/2012 [facility] 11/06/2012 [facility] SHANNON GOLDSTEIN MD 11/05/2012 [facility] DO 11/04/2012 [facility] DO 11/02/2012 [facility] 04/10/2010 Office visit Ernestina SHIELDS
--- OUTSIDE RECORDS SUMMARY | 2021-09-29 13:48 | XMS REPORT ---
Discharge Summary 2.1 Created on: 09/19/2021 ABDIRIZAKDULCE : 1940 Sex: Male Author Author CAMI DULCE Rebolledo Organization Unknown Address [address] [facility] [address] [place], [place] [address] Care Team Providers Care Forestry Aid Name Role Phone Watchlist DIRK Lott MD HOSPITALIS Attending SHYANN VIEYRA DO Erdoc1 ZEKE AREVALO MD [facility] Functional Status [...] CVX Influenza, seasonal, injectable Influenza, seasonal, injectable 08/2014 Completed 141 CVX Mental Status No Data Found Results .CULTURE BLOOD ID PANEL - Collect Date/T namita: 09/19/2021 08:18 [facility] [employer] 2 Step ID: [id number] [address] [facility] [address], [place], [place], [id number] LOINC: Test Value Unit Reference Range Code [...] Detected BEDSIDE GLUCOSE - Collect Date/Time: 22:57 [employer] ID: [id number] [address], [place], [place], [id number] LOINC: 34433-5 Test Value Unit Reference Range Code Code System GLUCOSE POCT 114 MG/DL L=70 H=100 4 1653-7 LOINC BASIC METABOLIC PANEL - Collect Date/Juvenal e: 09/18/2021 09:34 [employer] ID: [id number] [address], [place], [place], [id number] LOINC: 59640-1 Test Value Unit Reference Range Code Code [...] 2160-0 LOINC CALCIUM 8.9 MG/DL L=8.6 H=10.3 41076-6 LOINC AGE 81 yrs GFR NonAA 93 GFR AA 113 eGFR 93 mL/min/1.7 eGFR AA* >60 CBC W/ AUTO DIFF (RFLX MAN DIFF IF IND) - Collect Date/Time: 09/18/2021 09:34 [employer] ID: [id number] [address], [place], [place], [id number] LOINC: 64757-0 Test Value Unit Reference Range Code Code System WBC 7.0 TH/CMM L=4.5 H=10.8 39264-6 LOINC RBC 2.97 ML/CMM L=4.70 H=6.10 789-8 [...] IND LACTIC ACID - Collect Date/Time: 06:05 [facility] ID: [id number] [address], [place], [place], [id number] LOINC: 2524-7 Test Value Unit Reference Range Code Code System LACTIC ACID 0.8 mmol/L L=0.7 H=2.1 2524-7 LOINC LACTIC ACID - Collect Date/Time: 22:40 [facility] ID: [id number] [address] [place], [place], [id number] LOINC: 2524-7 Test Value Unit Reference Range Code Code System LACTIC ACID 2.0 mmol/L L=0.7 H=2.1 2524-7 LOINC UA ROUTINE C&S IF IND - Collect Date/Juvenal e: 09/17/2021 18:00 [facility] ID: [id number] [address], [place], [place], [id number] LOINC: 25545-8 Test Value Unit Reference Range Code Code [...] IF IND) - Collect Date/Time: 09/17/2021 17:43 [facility] ID: [id number] [address], [place], [place], [id number] LOINC: 39062-6 Test Value Unit Reference Range Code Code System WBC 12.2 TH/CMM L=4.5 H=10.8 00422-6 LOINC RBC 2.94 ML/CMM L=4.70 H=6.10 789-8 [...] LIPASE - Collect Date/Time: 09/17/2021 1 7:43 [employer] ID: [id number] [address], [place], [place], [id number] LOINC: 3040-3 Test Value Unit Reference Range Code Code System LIPASE 38 U/L L=23 H=300 304 0-3 LOINC LACTIC ACID - Collect Date/Time: 17:43 [employer] ID: [id number] [address], [place], [place], [id number] LOINC: 2524-7 Test Value Unit Reference Range Code Code System LACTIC ACID 2.6 mmol/L L=0.7 H=2.1 2524-7 LOINC PRO BNP - Collect Date/Time: 09/17/2021 17:43 [employer] ID: [id number] [address], [place], [place], [id number] LOINC: 64317-8 Test Value Unit Reference Range Code Code System PRO BNP 793 PG/ML L=0 H=450 3 0934-4 LOINC TROPONIN-I ADV - Collect Date/Time: 08/31 17:43 [employer] 2 Step ID: [id number] [address], [place], [place], [id number] LOINC: 21034-4 Test Value Unit Reference Range Code Code System TROPONIN-I AD < 0.034 ng/mL L=0.000 H=0.034 53295-4 LOINC COMPREHENSIVE METABOLIC PANEL - Collect Date/Time: 09/17/2021 17:43 [employer] ID: [id number] [address], [place], [place], [id number] LOINC: 82230-1 Test Value Unit Reference Range Code Code [...] 975-2 LOINC CALCIUM 9.9 MG/DL L=8.6 H=10.3 87164-3 LOINC AGE 81 yrs GFR NonAA 81 GFR AA 98 eGFR 81 mL/min/1.7 eGFR AA* >60 CT HEAD W/O CONTRAST - Completed: 2020 18:24 LOINC: EXAMINATION:CT HEAD W/O CONTRAST REASON FOR EXAM:Reason for Test: Altered Mental Status/memory loss, stroke protocol COMPARISON:11/07/2020TECHNIQUE:Noncontrast CT of the head. Automated exposure control was performed using [employer] Dose Management, which adjusts mA and/or kV [...] JOHN Ojedaigned Date/Time: 09/18/2021 8:05 AMJob ID#: [id number] CX CHEST 1 VIEW - Completed: 09/17/2021 [...] MD DABORLANDOigned Date/Time: 09/18/2021 8:48 AMJob ID#: [id number] Social History Type Status Start Date End Date Code Code System Smoking History Never smoker (Never Smoked ) 310402689 SNOMED-CT Smoking History Former smoker 9852488 SNOMED-CT Vital Signs Vital Sign Value Unit Atwood Value Atwood Unit Date/Time Recent/Initial? Code Cod e System Body Mass Index 23.60 kg/m2 09/17/2021 23:43 Initial 28673-8 LOINC Systolic Blood Pressure 131 mm[Hg] 09/19/2021 [...] Saturation 98 % 09/19/2021 15:55 Most Recent 96064-1 LOINC O2 Saturation 98 % 09/17/2021 23:43 Initial 47098-2 LOINC Pulse 53.0 /min 1 15:55 Most Recent 8867-4 LOINC Pulse 57.0 /min 1 23:43 Initial 8867-4 LOINC Respiration 20 /min 09/19/2021 15:55 Most Recent 9279-1 LOINC Respiration 16 /min 09/17/2021 23:43 Initial 9279-1 LOINC Temperature 36.3 Judy 97.3 09/19/2021 15:55 Most Recent 8310-5 LOINC Temperature 36.5 Judy 97.7 09/17/2021 23:43 Initial 8310-5 LOINC Weight 62.37 kg 137.50 lbs 09/17/2021 23:43 Initial 37525-5 LOINC Assessment You had the following problems: [...] TO PATIENT? Yes, Medications electronically sent to [facility]: Aspirin, Atorvastatin, Amoxicillin/Clavulanate, Clopidogrel, Metformin. Sucralfate. [...] at home. Reason For Referral Receiving Provider: [facility] Course You were admitted to [facility] on 09/17/2021 22:01 Medications Medication Start Date En d Date Route Frequency Dose Code Code System Medication Instructions NS 1000 ML IV [PRED EFINED] (7983) 09/17/2021 09/18/2021 INTRAVENOUS CONT IV 125 ml/hr 7950787 RxNorm 125 ml/hr INTRAVENOUS ~~~NACL 0.9% (7983) 1000ML IV BAG 1000 ML RxNorm ASPIRIN [CHEWABLE] T AB : 81MG 09/17/2021 Unknown BY [facility] DAILYM 81 MG [id number] RxNorm 81 MG BY MOUTH DAILY WITH A MEAL METFORMIN ER [GLUCOP CUATE XR] TAB: 500MG 09/17/2021 Unknown BY [facility] BID 500 MG [id number] RxNorm 500 MG B Y MOUTH TWO TIMES A DAY CLOPIDOGREL [PLAVIX] TABLET: 75 MG 09/17/2021 Unknown BY [facility] DAILY 75 MG [id number] RxNorm 75 MG BY MOUTH DAILY ATENOLOL [TENORMIN] TAB : 25 MG 09/17/2021 Unknown BY [facility] BID 12.5 MG [id number] RxNorm 12.5 MG BY MOUTH TWO TIMES A DAY TAMSULOSIN [FLOMAX] CAP: 0.4MG 09/17/2021 Unknown BY [facility] BID 0.4 MG [id number] RxNorm 0.4 MG B Y MOUTH TWO TIMES A DAY OMEGA-3 FATTY ACIDS [FISH OIL] CAP 09/17/2021 Unknown BY [facility] DAILY 1000 MG RxNorm 1000 MG BY MOUTH DAILY SUCRALFATE [CARAFATE ] TABLET : 1 GM 09/17/2021 Unknown BY [facility] BID 1 GM [id number] RxNorm 1 GM BY MOUTH TWO TIMES A DAY ATORVASTATIN [LIPITO R] TABLET : 20 MG 09/17/2021 Unknown BY [facility] BEDTIME 80 MG [id number] RxNorm 80 MG BY MOUTH AT BEDTIME CEPHALEXIN [KEFLEX] CAPSULE : 500 MG 09/18/2021 09/19/2021 BY MOUTH TID 500 MG [id number] RxNorm 500 MG B Y MOUTH THREE TIMES A DAY OLANZAPINE [ZyPREXA] TABLET: 10MG 09/18/2021 Unknown BY [facility] DAILY 5 MG [id number] RxNorm 5 MG BY MOUTH DAILY BETHANECOL [URECHOLI NE] TABLET : 25 MG 09/18/2021 Unknown BY [facility] QID 25 MG [id number] RxNorm 25 MG BY MOUTH FOUR TIMES A DAY PANTOPRAZOLE [PROTON IX] TABLET : 40 MG 09/18/2021 Unknown BY [facility] DAILY 40 MG [id number] RxNorm 40 MG BY MOUTH DAILY FINASTERIDE [PROSCAR ] TAB : 5 MG 09/18/2021 Unknown BY [facility] DAILY 5 MG [id number] RxNorm 5 MG BY MOUTH DAILY Aspirin 81MG Oral Ta blet, Chewable 09/19/2021 Unknown BY [facility] DAILY WITH A MEAL 81 MILLIGRAMS [id number] RxNorm 81 MILLIGRAMS BY MOUTH DAILY WITH A MEAL Atorvastatin Calcium 20MG Oral Tablet 09/19/2021 Unknown BY [facility] BEDTIME 80 MILLIGRAMS 61 7310 RxNorm 80 LITZY GRAMS BY MOUTH BEDTIME Amoxicillin/Clavulan ate Potassium 500MG-125MG Oral Tablet 09/19/2021 Unknown BY MOUTH TWICE WITH MEALS 500 MILLIGRAMS 793970 RxNorm 500 MILLIGRAMS BY MOUTH TWICE WITH MEALS Clopidogrel 75MG Ora l Tablet 09/19/2021 Unknown BY [facility] DAILY 75 MILLIGRAMS 3093 62 RxNorm 75 LITZY GRAMS BY MOUTH DAILY metFORMIN HCl 500MG Oral Tablet, Extended Release 09/19/2021 Unknown BY MOUTH TWO TIMES A DAY 500 MILLIGRAMS [id number] RxNorm 500 MILLIGRAMS BY MOUTH TWO TIMES A DAY Sucralfate 1GM Oral Tablet 09/19/2021 Unknown BY [facility] TWO TIMES A DAY 1 GRAM 3 60512 RxNorm 1 GRAM B Y MOUTH TWO TIMES A DAY Atenolol 25MG Oral T ablet 09/19/2021 Unknown ORAL DAILY 25 MILLIGRAMS [id number] RxNorm 25 LITZY GRAMS ORAL DAILY Bethanechol Chloride 25MG Oral Tablet 09/19/2021 Unknown ORAL FOUR TIMES A DAY 25 MILLIGRAMS 094199 RxNorm 25 MILLIGRAMS ORAL FOUR TIMES A DAY Finasteride 5MG Oral Tablet 09/19/2021 Unknown ORAL DAILY 5 MILLIGRAMS 04091 6 RxNorm 5 MILLIG ARIES ORAL DAILY Montelukast Sodium 1 0MG Oral Tablet 09/19/2021 Unknown ORAL DAILY 10 MILLIGRAMS 2001 24 RxNorm 10 LITZY GRAMS ORAL DAILY OLANZapine 5MG Oral Tablet 09/19/2021 Unknown ORAL DAILY 5 MILLIGRAMS 68253 8 RxNorm 5 MILLIG ARIES ORAL DAILY Protonix 40 MG Oral Tablet, Delayed Release 09/19/2021 Unknown ORAL DAILY 40 MG 238675 RxNorm 40 MG O RAL DAILY Tamsulosin HCl 0.4MG Oral Capsule 09/19/2021 Unknown ORAL DAILY 0.4 MILLIGRAMS 863 669 RxNorm 0.4 MILL IGRAMS ORAL DAILY AUGMENTIN (COMBO PRO DUCT) TAB : 500 MG 09/19/2021 09/26/2021 BY MOUTH BIDM 500 MG 566084 RxNorm 500 MG B Y MOUTH WITH MEALS 2 TIMES Procedures Procedure Name Date Stat us Code Code System APPENDECTOMY completed 761009762 SNOM ED CT LASIK completed 810262517 SNOM ED [address] Kidney stone completed 52396033 SNOME D CT Implants No Data Found Problems Problem Start Date Resol ray Date Status Code Code System UTI 09/17/2021 active 51891941 SNOMED-CT AMS 09/17/2021 active 084464955 SNOMED-CT CAD (CORONARY ARTERY DISEASE) 06/08/2017 resolved SNOMED-CT TONY (ACUTE KIDNEY INJURY) 11/13/2012 resolved 19251945 SNOMED -CT GI BLEED 06/08/2017 resolved 01316197 SNOMED-CT SEPSIS 11/08/2020 resolved 18124935 SNOMED-CT ACUTE RESPIRATORY DISTRESS 11/08/2020 resolved 765347044 SNOME D-CT NIDDM 09/18/2021 resolved 66672975 SNOMED-CT ACUTE STROKE 11/08/2020 09/18/2021 resolved 237475559411355 SNOMED-CT BLADDER CANCER 020 resolved 285850696 SNOME D-CT BLEEDING STOMACH ULCER 11/08/2020 resolved 20970271 SNOMED -CT Benign prostatic hyperplasia 05/02/2017 active 309601913 SNOMED- CT Urge incontinence of urine 07/23/2017 active 39532185 SNOMED-C T Hyperlipidemia active 93819688 SNOMED-CT Raised prostate specific antigen 7 active 221902636 SNOMED- CT Diabetes mellitus type 2 active 96080427 SNOMED-C T Urgent desire to urinate 07/23/2017 active 20244996 SNOMED-C T History of kidney stone 07/18/2017 active 666578274 SNOMED- CT Malignant tumor of urinary bladder 0 07/18/2017 active 966301919 SNOMED-CT CA IN SITU BLADDER active SNOMED-CT Retention of urine 07/18/2017 active 214642549 SNOMED- CT COPD 09/18/2021 resolved 82685088 SNOMED-CT DEMENTIA 09/18/2021 resolved 75564920 SNOMED-CT CVA 09/18/2021 resolved 094055502 SNOMED-CT PVD 09/18/2021 resolved 220063396 SNOMED-CT DIVERTICULITIS 021 resolved 041212285 SNOME D-CT [place] SPOTTED FEVER 09/18/2021 resolved 520359757 SNOME D-CT ULCER 09/18/2021 resolved 238410891 SNOMED-CT HTN 09/18/2021 resolved 39732146 SNOMED-CT HLD 09/18/2021 resolved 85838281 SNOMED-CT NIDDM 09/18/2021 resolved 78257462 SNOMED-CT BLADDER CANCER 021 resolved 827333178 SNOME D-CT CAD 09/18/2021 resolved 03263609 SNOMED-CT PYELONEPHRITIS 012 resolved 82216008 SNOMED -CT BPH 09/18/2021 resolved 290958298 SNOMED-CT SEPSIS 11/13/2012 resolved 44232373 SNOMED-CT Allergies Allergy Substance Reaction Severity Start Date Concern Status Code Code System TETANUS TOXOID Active 877160 RxNorm CIPRO Confusion (SNOMED-CT: 713765439) Active 056058 RxNorm Plan of Treatment CULTURE BLOOD 09/17/2021 LOINC: 600-7 CULTURE BLOOD 09/17/2021 LOINC: 600-7 US Carotid Duplex Complex/Bilateral 07/04/2021 Event Monitor - 30 Days 12/06/2020 Event Monitor - 30 Days 08/16/2020 US Echo 2D M-Mode Complete 0 Lexiscan Myoview 06/19/2020 CTA Abdomen Aorta/Fem R/O W&W/O Contrast 06/19/2020 Encounters No Data Found Goals No Data Found Discharge Medications No Data Found Discharge Diagnosis No Data Found Health Concerns Section No Data Found
--- OUTSIDE RECORDS SUMMARY | 2021-09-29 13:48 | XMS REPORT ---
Author Author Sola Hyde [facility] Address [address] [place], [place] [address] Care Team Providers Care Associate Application Developer Name Role Phone Shukri Hyde PCP Mike [...] oral route 2 times a day omega 0-mfz-tdl-fish oil 1,000 mg (120 mg-180 mg) oral capsule take 1 capsule by oral route daily metformin 500 mg oral tablet 01/08/2021 01/03/2022 Sindy e 1 1/2 tablet by mouth twice daily levothyroxine 25 mcg tablet 06/20/2021 09/18/2021 take [...] daily in the evening for 30 days Name Start Date Expiration [...] 01/08/20212020 Take 1-2 tablets AC meals prn Clopidogrel Bisulfate 75 MG Oral Tablet 03/01/2021 [...] Ab, Quant,IgM <0.80 RMSF, IgG, EIA Positive [facility] Spotted Fever,IgM 0.54 E. chaffeensis (HME) [...] Not Entered 12/09/2017 07/07/2015 158 Covid-19 01/15/2021 Hittahem MOD Moderna COVID-19 Vaccin e 515P89C Intramuscular Left Arm 12/01/2021 12/01/2021 207 Covid-19 [...] 2017 2:10PM Hematuria Aug 05 2017 2:10PM [place] spotted fever Aug 12 2017 3:36PM Muscle cramps at night Aug 12 2017 3:36PM [place] spotted fever Aug 05 2017 2:10PM Diabetes [...] cancer Jul 23 2021 1:23PM Kidney Stones Sep 2020 9:52AM Straining to void Aug 01 2021 [...] hesitancy Aug 27 2021 10:39AM Cloudy urine Aug 27 2021 10:39AM Depression Aug 27 2021 10:39AM Cough Sep 12 2021 1:08PM Allergic rhinitis Sep 12 2021 1:08PM Postnasal drip Sep 12 2021 1:08PM Anemia Sep 12 2021 1:08PM Payers Insurance Name Company Name Plan Name Plan Number Policy Number Frankie cy Group Number Start Date [facility] [address] [facility] [id number] N/A Medicare Part B Medicare Of [place] [id number] May [place] Medical Assistance Program [facility] Mariusz [place] [id number] N/A [employer] [place] State Plan [employer] [place] State Plan [id number] N/A Medicare Part A Medicare Part A [id number] May Medicare Part A Medicare - Lab/Xray [id number] May Medicare RHC Medicare C [id number] N/A Medicare Part B Medicare Of [place] [id number] N/A History of Encounters Visit Date Visit Type Provider 09/12/[address] Shukri Hyde MD [...] Linda DO 12/05/2020 Office visit MAUREEN CORONA SKEIN SPOOLER 11/14/2020 Office visit Mike V. Linda DO 11/08/[address] [facility] [address] Kevin Ruth MD 11/06/2020 Office visit Mike V. Linda DO 11/04/2020 [facility] Mary Tapia MD 11/02/2020 Office visit MAUREEN CORONA SKEIN SPOOLER 09/11/2020 Office visit Mike V. Linda DO 10/06/2019 Office visit Mike V. Linda DO 10/05/2019 [facility] Mary Tapia MD 10/04/2019 Office visit Mike V. Linda DO 08/24/2019 Office visit Mike V. Linda DO 12/24/2018 Office visit Mike V. Linda DO 12/22/2018 Office visit Mike V. Linda DO 11/16/2018 Office visit Cholo Hyde MD 11/06/2018 Surgery Cholo Hyde MD 10/28/2018 Office visit Cholo Hyde MD 09/15/2018 Office visit Mike V. Linda DO 08/20/2018 Hospital Mary Tapia MD 05/11/2018 Office visit Mike V. Linda DO 12/09/2017 Office visit Ashia Navarrete MD 08/05/2017 Office visit 08/05/2017 Office visit Hemalatha Tejeda APR N 07/18/2017 Office visit Roscoe Brownlee MD 06/23/2017 Office visit Ashia Navarrete MD 06/08/2017 [facility] 06/08/2017 [facility] Mary Tapia MD 06/08/2017 Surgery Roscoe Brownlee MD 06/02/2017 Surgery Roscoe Brownlee MD 05/02/2017 Office visit Roscoe Brownlee MD 11/13/2016 Office visit Ashia Navarrete MD 11/05/2016 Office visit Gurwinder Alcala APR N 05/21/2016 [facility] Mary Tapia MD 02/04/2016 Office visit Geronimo Ansari SKEIN SPOOLER 03/09/2015 [facility] Jamal Guevara MD 03/03/2015 Surgery Roscoe Brownlee MD 02/27/2015 Office visit Roscoe Brownlee MD 02/22/2015 Office visit Jamal Guevara MD 02/01/2015 Office visit Roscoe Brownlee MD 11/14/2012 [facility] Deysi Melo MD 11/14/2012 [facility] Mary Tapia MD 11/13/2012 [facility] Rolando Jain DO 11/06/2012 [facility] SHANNON GOLDSTEIN MD 11/05/2012 [facility] DO 11/04/2012 [facility] 11/02/2012 [facility] 04/10/2010 Office visit Ernestina SHIELDS
--- OUTSIDE RECORDS SUMMARY | 2021-09-29 13:49 | XMS REPORT ---
Author Author Sola Hyde [facility] Address [address] [place], [place] [address] Care Team Providers Care Automobile Repair Service Estimator Name Role Phone Shukri Hyde PCP Mike [...] oral route 2 times a day omega 2-gqb-djq-fish oil 1,000 mg (120 mg-180 mg) oral [...] Ab, Quant,IgM <0.80 RMSF, IgG, EIA Positive [facility] Spotted Fever,IgM 0.54 E. chaffeensis (HME) [...] Entered 12/09/2017 07/07/2015 158 Covid-19 01/15/2021 Moderna [employer]. MOD Moderna COVID-19 Vaccin e 287P49B Intramuscular Left Arm 12/01/2021 12/01/2021 207 Covid-19 [...] 2017 2:10PM Hematuria Aug 05 2017 2:10PM [place] spotted fever Aug 12 2017 3:36PM Muscle cramps at night Aug 12 2017 3:36PM [place] spotted fever Aug 05 2017 2:10PM Diabetes [...] 11:02AM Cloudy urine Aug 27 2021 11:02AM Payers Insurance Name Company Name Plan Name Plan Number Policy Number Frankie cy Group Number Start Date [facility] [address] [facility] [id number] N/A Medicare Part B Medicare Of [place] [id number] May [place] Medical Assistance Program [place] [facility] Mariusz tance [employer]g [id number] N/A [place] [id number] N/A Medicare Part A Medicare Part A [id number] , 2004 Medicare Part A Medicare - Lab/Xray [id number] , May 31, 2004 Medicare RHC Medicare RHC [id number] N/A Medicare Part B Medicare [place] [id number] N/A History of Encounters Visit Date Visit [...] Mike Mckeon DO 12/19/2020 Office visit Mike Lewisr DO 12/05/2020 Office visit MAUREEN CORONA APRN 11/14/2020 Office visit Mike Mckeon DO 11/08/[address] [facility] [address] Kevin Ruth MD 11/06/2020 Office visit Mike V. Linda DO 11/04/2020 Hospital Mary Tapia MD 11/02/2020 Office visit MAUREEN CORONA RECRUITING INTERN 09/11/2020 Office visit Mike V. Linda DO 10/06/2019 Office visit Mike V. Linda DO 10/05/2019 [facility] Mary Tapia MD 10/04/2019 Office visit Mike V. Linda DO 08/24/2019 Office visit Mike V. Linda DO 12/24/2018 Office visit Mike V. Linda DO 12/22/2018 Office visit Mike V. Linda DO 11/16/2018 Office visit Cholo Hyde MD 11/06/2018 Surgery Cholo Hyde MD 10/28/2018 Office visit Cholo Hyde MD 09/15/2018 Office visit Mike V. Linda DO 08/20/2018 [facility] Mary Tapia MD 05/11/2018 Office visit Mike V. Linda DO 12/09/2017 Office visit Ashia Navarrete MD 08/05/2017 Office visit 08/05/2017 Office visit Hemalatha Tejeda APR N 07/18/2017 Office visit Roscoe Brownlee MD 06/23/2017 Office visit Ashia Navarrete MD 06/08/2017 [facility] DO 06/08/2017 [facility] Mary Tapia MD 06/08/2017 Surgery Roscoe Brownlee MD 06/02/2017 Surgery Roscoe Brownlee MD 05/02/2017 Office visit Roscoe Brownlee MD 11/13/2016 Office visit Ashia Navarrete MD 11/05/2016 Office visit Gurwinder Alcala APR N 05/21/2016 [facility] Mary Tapia MD 02/04/2016 Office visit Geronimo Ansari RECRUITING INTERN 03/09/2015 [facility] Jamal Guevara MD 03/03/2015 Surgery Roscoe Brownlee MD 02/27/2015 Office visit Roscoe Brownlee MD 02/22/2015 Office visit Jamal Guevara MD 02/01/2015 Office visit Roscoe Brownlee MD 11/14/2012 [facility] Deysi Melo MD 11/14/2012 [facility] Mary Tapia MD 11/13/2012 [facility] Rolando Jain DO 11/06/2012 [facility] SHANNON GOLDSTEIN MD 11/05/2012 [facility] DO 11/04/2012 [facility] DO 11/02/2012 [facility] DO 04/10/2010 Office visit Ernestina SHIELDS
--- OUTSIDE RECORDS SUMMARY | 2021-09-29 13:49 | XMS REPORT ---
Author Author Sola Hyde [facility] Address [address] [place], [place] [id number] Care Team Providers Care Corrugator Helper Name Role Phone Shukri Hyde PCP Mike [...] oral route 2 times a day omega 9-bot-aot-fish oil 1,000 mg (120 mg-180 mg) oral [...] 30 days Augmentin 875-125 mg oral tablet 08/07/2021 08/17/2021 take 1 tablet by oral route every 12 hours for 10 days Name Start Date Expiration Date SIG [...] 12 hours with food for 7 days Discontinued Name Start Date Discontinued Date [...] HC BMI BSA BMI Percentile O2 Sat(%) 08/07/2021 9:11:00 AM 112 mm[Hg] 72 mm[Hg] [...] Reviewed 08/01/2021 12:00 AM URINALYSIS AUTO W/SCOPE Returned 08/01/2021 12:00 AM CYSTOSCOPY Reviewed 02/01/2015 12:00 [...] MUCOUS/LPF None Seen CULT SET UP? YES History Of Immunizations Name Date Admin Mfg Name Mfg Code Trade Name Lot# Route Inj Vis Given Vis Pub CVX Influenza 10/23/2016 Not Entered NE Not Entered Not Entered Not Entered 12/01/2021 12/01/2021 141 Influenza 10/15/2017 GlaxoSmKuldat SKB Flulaval quadrivalent 4 Z2L3 Not Entered Not Entered 12/09/2017 07/07/2015 158 Covid-19 01/15/2021 ItsGoinOn. MOD Moderna COVID-19 Vaccin e [id number] Intramuscular Left Arm 12/01/2021 12/01/2021 207 Covid-19 [...] 2017 2:10PM Hematuria Aug 05 2017 2:10PM [place] spotted fever Aug 12 2017 3:36PM Muscle cramps at night Aug 12 2017 3:36PM [place] spotted fever Aug 05 2017 2:10PM Diabetes [...] stroke Aug 01 2021 9:50AM Kidney stone Aug 01 2021 9:58AM History of bladder cancer Aug 01 2021 9:50AM Kidney stones Aug 01 2021 9:50AM Constipation Aug 07 2021 9:16AM Dysuria Aug 07 2021 9:16AM Weight loss Aug 07 2021 9:16AM Payers Insurance Name Company Name Plan Name Plan Number Policy Number Frankie cy Group Number Start Date [facility] [id number] [facility] [id number] N/A Medicare Part B Medicare Of [place] [id number] May [place] Medical Assistance Program [facility] Mariusz tan Pro [id number] N/A [facility] State [facility] State Plan [id number] N/A Medicare Part A Medicare Part A [id number] May Medicare Part A Medicare - Lab/Xray [id number] May Medicare RHC Medicare RHC [id number] N/A Medicare Part B Medicare Of [place] [id number] N/A History of Encounters Visit Date Visit Type Provider 08/07/[address] Shukri Hyde MD [...] Linda DO 12/05/2020 Office visit MAUREEN CORONA ENGINEERING SPECIALIST 11/14/2020 Office visit Mike V. Linda DO 11/08/[address] Kevin Ruth MD 11/06/2020 Office visit Mike V. Linda DO 11/04/2020 [facility] Mary Tapia MD 11/02/2020 Office visit MAUREEN CORONA ENGINEERING SPECIALIST 09/11/2020 Office visit Mike V. Linda DO 10/06/2019 Office visit Mike V. Linda DO 10/05/2019 [facility] Mary Tapia MD 10/04/2019 Office visit Mike V. Linda DO 08/24/2019 Office visit Mike V. Linda DO 12/24/2018 Office visit Mike V. Linda DO 12/22/2018 Office visit Mike V. Linda DO 11/16/2018 Office visit Cholo Hyde MD 11/06/2018 Surgery Cholo Hyde MD 10/28/2018 Office visit Cholo Hyde MD 09/15/2018 Office visit Mike V. Linda DO 08/20/2018 [facility] Mary Tapia MD 05/11/2018 Office visit Mike V. Linda DO 12/09/2017 Office visit Ashia Navarrete MD 08/05/2017 Office visit 08/05/2017 Office visit Hemalatha Tejeda APR N 07/18/2017 Office visit Roscoe Brownlee MD 06/23/2017 Office visit Ashia Navarrete MD 06/08/2017 [facility] DO 06/08/2017 Hospital Mary Tapia MD 06/08/2017 Surgery Roscoe Brownlee MD 06/02/2017 Surgery Roscoe Brownlee MD 05/02/2017 Office visit Roscoe Brownlee MD 11/13/2016 Office visit Ashia Navarrete MD 11/05/2016 Office visit Gurwinder Alcala APR N 05/21/2016 Hospital Mary Tapia MD 02/04/2016 Office visit Geronimo Ansari APRN 03/09/2015 [facility] Jamal Guevara MD 03/03/2015 Surgery Roscoe Brownlee MD 02/27/2015 Office visit Roscoe Brownlee MD 02/22/2015 Office visit Jamal Guevara MD 02/01/2015 Office visit Roscoe Brownlee MD 11/14/2012 [facility] Deysi Melo MD 11/14/2012 [facility] Mary Tapia MD 11/13/2012 [facility] Rolando [facility] 11/06/2012 [facility] SHANNON GOLDSTEIN MD 11/05/2012 [facility] 11/04/2012 [facility] 11/02/2012 [facility] 04/10/2010 Office visit Ernestina SHIELDS
--- OUTSIDE RECORDS SUMMARY | 2021-09-29 13:49 | XMS REPORT ---
Author Author Sola Hyde Organization [facility] Address [address] [place], [place] [id number] Care Team Providers Care Manager Line Name Role Phone Cholo Hyde PCP Mike Mckeon V PreferredProvider Unavailable [...] oral route 2 times a day omega 5-ugz-bwf-fish oil 1,000 mg (120 mg-180 mg) oral [...] oral route once daily for 90 days Lexapro 5 mg tablet 06/06/2021 08/05/2021 [...] oral route once daily for 30 days cephalexin 500 mg oral capsule 08/03/2021 08/10/2021 t nola 1 capsule (500 mg) by oral route every 12 hours for 7 days Name Start Date Expiration Date SIG [...] 12 hours with food for 7 days ofloxacin 0.3 % otic (ear) drops [...] 05/28/2021 Take 1 tablet B ID-TID PRN Problem List Description Status Onset Urinary tract [...] HC BMI BSA BMI Percentile O2 Sat(%) 07/23/2021 1:23:00 PM 128 mm[Hg] 62 mm[Hg] 71 {beats}/min 16 rpm 98.4 F 132 lbs 64 in 22.6575 kg/m2 1.6443 m2 95 % 07/13/2021 3:39:00 PM 128 mm[Hg] 80 mm[Hg] 61 {beats}/min 16 rpm 98.1 F 135.375 lbs 64 in 23.24 kg/m2 1.67 m2 98 % 07/06/2021 3:58:00 PM 120 mm[Hg] 68 mm[Hg] 67 {beats}/min 16 rpm 97.7 F 134 lbs 64 in 23.0008 kg/m2 1.6567 m2 95 % 06/06/2021 4:43:00 PM 118 mm[Hg] 78 mm[Hg] 67 {beats}/min 98.7 F 153 lbs 64 in 26.26 kg/m2 1.77 m2 95 % 05/28/2021 5:21:00 PM 132 mm[Hg] 68 mm[Hg] 58 {beats}/min 16 rpm 97.9 F 138.375 lbs 68 in 21.0396 kg/m2 1.7353 m2 96 % 12/05/2020 1:34:00 [...] Ab, Quant,IgM <0.80 RMSF, IgG, EIA Positive [facility] Spotted Fever,IgM 0.54 E. chaffeensis (HME) [...] Not Entered 12/01/2021 12/01/2021 141 Influenza 10/15/2017 GlaxSimple LifeformsKlSnow & Alps SKB Flulaval quadrivalent 4 Z2L3 Not Entered Not Entered 12/09/2017 07/07/2015 158 Covid-19 01/15/2021 ZhenXin. MOD Moderna COVID-19 Vaccin e [id number] Intramuscular Left Arm 12/01/2021 12/01/2021 207 Covid-19 [...] 2017 2:10PM Hematuria Aug 05 2017 2:10PM [place] spotted fever Aug 12 2017 3:36PM Muscle cramps at night Aug 12 2017 3:36PM [place] spotted fever Aug 05 2017 2:10PM Diabetes [...] 9:50AM Kidney stones Aug 01 2021 9:50AM Payers Insurance Name Company Name Plan Name Plan Number Policy Number Frankie cy Group Number Start Date [facility] [id number] [facility] [id number] N/A Medicare Part B Medicare Of [place] [id number] May [place] Medical Assistance [facility] Mariusz tan Prog [id number] N/A [employer] [place] [place] State [facility] [id number] N/A Medicare Part A Medicare Part A [id number] May Medicare Part A Medicare - Lab/Xray [id number] May Medicare RHC Medicare RHC [id number] N/A Medicare Part B Medicare Of [place] [id number] N/A History of Encounters Visit Date Visit Type Provider 08/01/2021 Procedures Cholo Hyde MD 07/27/[address] Shukri Hyde MD 07/23/2021 Office visit Cholo Hyde MD 07/13/[address] Shukri Hyde MD 07/06/[address] Shukri Hyde MD 06/06/[address] Shukri Hyde MD 05/28/2021 Office visit Malaika NAGY RN 01/08/2021 Office visit Mike Mckeon DO 12/19/2020 Office visit Mike Mckeon DO 12/05/2020 Office visit MAUREEN CORONA APRN 11/14/2020 Office visit Mike Mckeon DO 11/08/2020 [facility] [address]. Kevin Ruth MD 11/06/2020 Office visit Mike V. Linda DO 11/04/2020 Hospital Mary Tapia MD 11/02/2020 Office visit MAUREEN CORONA DIRECTOR FIELD SERVICES 09/11/2020 Office visit Mike V. Linda DO 10/06/2019 Office visit Mike V. Linda DO 10/05/2019 [facility] Mary Tapia MD 10/04/2019 Office visit Mike V. Linda DO 08/24/2019 Office visit Mike V. Linda DO 12/24/2018 Office visit Mike V. Linda DO 12/22/2018 Office visit Mike V. Linda DO 11/16/2018 Office visit Cholo Hyde MD 11/06/2018 Surgery Cholo Hyde MD 10/28/2018 Office visit Cholo Hyde MD 09/15/2018 Office visit Mike V. Linda DO 08/20/2018 [facility] Mary Tapia MD 05/11/2018 Office visit Mike V. Linda DO 12/09/2017 Office visit Ashia Navarrete MD 08/05/2017 Office visit 08/05/2017 Office visit Hemalatha Tejeda APR N 07/18/2017 Office visit Roscoe Brownlee MD 06/23/2017 Office visit Ashia Navarrete MD 06/08/2017 [facility] DO 06/08/2017 [facility] Mary Tapia MD 06/08/2017 Surgery Roscoe Brownlee MD 06/02/2017 Surgery Roscoe Brownlee MD 05/02/2017 Office visit Roscoe Brownlee MD 11/13/2016 Office visit Ashia Navarrete MD 11/05/2016 Office visit Gurwinder Alcala APR N 05/21/2016 [facility] Mary Tapia MD 02/04/2016 Office visit Geronimo Ansari DIRECTOR FIELD SERVICES 03/09/2015 [facility] Jamal Guevara MD 03/03/2015 Surgery Roscoe Brownlee MD 02/27/2015 Office visit Roscoe Brownlee MD 02/22/2015 Office visit Jamal Guevara MD 02/01/2015 Office visit Roscoe Brownlee MD 11/14/2012 [facility] Deysi Melo MD 11/14/2012 [facility] Mary Tapia MD 11/13/2012 [facility] Rolando Jain DO 11/06/2012 [facility] SHANNON GOLDSTEIN MD 11/05/2012 [facility] DO 11/04/2012 [facility] 11/02/2012 [facility] 04/10/2010 Office visit Ernestina SHIEDLS
--- OUTSIDE RECORDS SUMMARY | 2021-09-29 13:49 | XMS REPORT ---
Author Author Sola Hyde [facility] Address [address] [place], [place] [id number] Care Team Providers Care Wheel Installer Name Role Phone Shukri Hyde PCP Mike [...] oral route 2 times a day omega 4-rnr-sfa-fish oil 1,000 mg (120 mg-180 mg) oral [...] Ab, Quant,IgM <0.80 RMSF, IgG, EIA Positive [facility] Spotted Fever,IgM 0.54 E. chaffeensis (HME) IgGTiter [...] Not Entered 12/09/2017 07/07/2015 158 Covid-19 01/15/2021 [employer]. MOD Moderna COVID-19 Vaccin e [id number] Intramuscular Left Arm 12/01/2021 12/01/2021 207 Covid-19 [...] 2017 2:10PM Hematuria Aug 05 2017 2:10PM [place] spotted fever Aug 12 2017 3:36PM Muscle cramps at night Aug 12 2017 3:36PM [place] spotted fever Aug 05 2017 2:10PM Diabetes [...] Frankie cy Group Number Start Date [facility] [id number] [facility] [id number] N/A Medicare Part B Medicare Of [place] [id number] May [place] Medical Assistance Program [place] [facility] Mariuszlul pettit Prog [id number] N/A [employer] [place] Plan [employer] [place] Plan [id number] N/A Medicare Part A Medicare Part A [id number] May Medicare Part A Medicare - Lab/Xray [id number] May Medicare RHC Medicare RHC [id number] N/A Medicare Part B Medicare Of [place] [id number] N/A History of Encounters Visit Date Visit [...] Linda DO 12/05/2020 Office visit MAUREEN CORONA DRAFTSPERSON 11/14/2020 Office visit Mike V. Linda DO 11/08/[address] [facility] MD 11/06/2020 Office visit Mike V. Linda DO 11/04/2020 [facility]ia MD 11/02/2020 Office visit MAUREEN CORONA DRAFTSPERSON 09/11/2020 Office visit Mike V. Linda DO [...] Office visit Ashia Navarrete MD 06/08/2017 Hospital Magdielviviane Schwarznvgenet DO 06/08/2017 Hospital Mary Tapia MD 06/08/2017 Surgery Roscoe Brownlee MD 06/02/2017 Surgery Roscoe Brownlee MD 05/02/2017 Office visit Roscoe Brownlee MD 11/13/2016 Office visit Ashia Navarrete MD 11/05/2016 Office visit Gurwinder Alcala APR N 05/21/2016 [facility] Tapia MD 02/04/2016 Office visit Geronimo Ansari DRAFTSPERSON 03/09/2015 [facility] Jamal Guevara MD 03/03/2015 Surgery Roscoe Brownlee MD 02/27/2015 Office visit Roscoe Brownlee MD 02/22/2015 Office visit Jamal Guevara MD 02/01/2015 Office visit Roscoe Brownlee MD 11/14/2012 [facility] De[facility]i Melo [facility] 11/14/[facility] Mary Tapia MD 11/13/2012 [facility] 11/06/2012 [facility] SHANNON GOLDSTEIN MD 11/05/2012 [facility] 11/04/2012 [facility] 11/02/2012 [facility] 04/10/2010 Office visit Ernestina SHIELDS
--- OUTSIDE RECORDS SUMMARY | 2021-09-29 13:49 | XMS REPORT ---
Author Author Sola Hyde Organization [facility] Address [address] [place], [place] [id number] Care Team Providers Care Hydraulic Rock Drill Operator Name Role Phone Cholo Hyde PCP Mike [...] oral route 2 times a day omega 0-ylv-ktn-fish oil 1,000 mg (120 mg-180 mg) oral [...] 2 times per day for 30 days Name Start Date Expiration [...] HC BMI BSA BMI Percentile O2 Sat(%) 08/16/2021 10:47:00 AM 118 mm[Hg] 50 mm[Hg] 58 {beats}/min 18 rpm 98.8 F 134 lbs 64 in 23.0008 kg/m2 1.6567 m2 95 % 08/07/2021 9:11:00 AM 112 mm[Hg] 72 mm[Hg] 68 {beats}/min 16 rpm 97.5 F 135.5 lbs 64 in 23.26 kg/m2 1.67 m2 94 % 07/23/2021 1:23:00 [...] Ab, Quant,IgM <0.80 RMSF, IgG, EIA Positive [facility] Spotted Fever,IgM 0.54 E. chaffeensis (HME) IgGTiter [...] Not Entered 12/01/2021 12/01/2021 141 Influenza 10/15/2017 GlaxIntelliWheelsine SKB Flulaval quadrivalent 4 Z2L3 Not Entered Not Entered 12/09/2017 07/07/2015 158 Covid-19 01/15/2021 Moderna Bloggerce. MOD Moderna COVID-19 Vaccin e [id number] Intramuscular Left Arm 12/01/2021 12/01/2021 207 Covid-19 [...] 2017 2:10PM Hematuria Aug 05 2017 2:10PM [place] spotted fever Aug 12 2017 3:36PM Muscle cramps at night Aug 12 2017 3:36PM [place] spotted fever Aug 05 2017 2:10PM Diabetes [...] 10:48AM Urinary obstruction Aug 16 2021 10:48AM Payers Insurance Name Company Name Plan Name Plan Number Policy Number Frankie cy Group Number Start Date [facility] [id number] [facility] [id number] N/A Medicare Part B Medicare Of [place] [id number] May [place] Medical Assistance [facility] Mariusz [place] [id number] N/A [place] [id number] N/A Medicare Part A Medicare Part A [id number] May Medicare Part A Medicare - Lab/Xray [id number] May Medicare RHC Medicare RHC [id number] N/A Medicare Part B Medicare Of [place] [id number] N/A History of Encounters Visit Date Visit Type Provider 08/16/2021 Office visit Cholo Hyde MD 08/07/2021 [...] Linda DO 12/05/2020 Office visit MAUREEN CORONA RECRUITER 11/14/2020 Office visit Mike V. Linda DO 11/08/[address] [facility] [address] Kevin Ruth MD 11/06/2020 Office visit Mike V. Linda DO 11/04/2020 [facility] Mary Tapia MD 11/02/2020 Office visit MAUREEN CORONA RECRUITER 09/11/2020 Office visit Mike V. Linda DO 10/06/2019 Office visit Mike V. Linda DO 10/05/2019 [facility] Mary Tapia MD 10/04/2019 Office [...] 06/23/2017 Office visit Ashia Navarrete MD 06/08/2017 [facility] 06/08/2017 [facility] Mary Tapia MD 06/08/2017 Surgery Roscoe Brownlee MD 06/02/2017 Surgery Roscoe Brownlee MD 05/02/2017 Office visit Roscoe Brownlee MD 11/13/2016 Office visit Ashia Navarrete MD 11/05/2016 Office visit Gurwinder Alcala APR N 05/21/2016 [facility] Mary Tapia MD 02/04/2016 Office visit Geronimo Ansari RECRUITER 03/09/2015 [facility] Jamal Guevara MD 03/03/2015 Surgery Roscoe Brownlee MD 02/27/2015 Office visit Roscoe Brownlee MD 02/22/2015 Office visit Jamal Guevara MD 02/01/2015 Office visit Roscoe Brownlee MD 11/14/2012 [facility] Deysi Melo MD 11/14/2012 [facility] Mary Tapia MD 11/13/2012 [facility] DO 11/06/2012 [facility] SHANNON GOLDSTEIN MD 11/05/2012 [facility] DO 11/04/2012 [facility] DO 11/02/2012 [facility] 04/10/2010 Office visit Ernestina SHIELDS
--- OUTSIDE RECORDS SUMMARY | 2021-09-29 13:50 | XMS REPORT ---
Author Author Sola Hyde [facility] Address [address] [place], [place] [address] Care Team Providers Care Laborer Rags Name Role Phone Cholo Hyde PCP Mike Mckeon V PreferredProvider Unavailable Allergies and Adverse Reactions Name Reaction Notes TETANUS hives Cipro Plan of Treatment Planned Activity Comments Planned Date Planned Time Plan/Goal PSA TOTAL 04/24/2019 12:00 AM ESR 05/28/2021 12:00 AM Fecal occult blood test 06/07/2021 12:00 AM URINALYSIS W/MICRO C&S IF IND 07/06/2021 12:00 AM GI PANEL 07/27/2021 12:00 AM Abdomen 1 View - Clinic 08/01/2021 12:00 AM URINALYSIS W/MICRO C&S IF IND 08/01/2021 12:00 AM ABDOMEN ONE VIEW 08/01/2021 12:00 [...] oral route 2 times a day omega 5-pji-ivr-fish oil 1,000 mg (120 mg-180 mg) oral [...] HOUR FOLLOWING THE SAME MEAL EACH DAY Name Start Date Expiration Date SIG Comments [...] 07/23/2021 12:00 AM URINALYSIS AUTO W/SCOPE Reviewed 02/01/2015 12:00 AM COMPLETE CBC W/AUTO [...] Ab, Quant,IgM <0.80 RMSF, IgG, EIA Positive [facility] Spotted Fever,IgM 0.54 E. chaffeensis [...] Not Entered 12/09/2017 07/07/2015 158 Covid-19 01/15/2021 [employer] MOD Moderna COVID-19 Vaccin e [id number] Intramuscular Left Arm 12/01/2021 12/01/2021 207 Covid-19 [...] 2017 2:10PM Hematuria Aug 05 2017 2:10PM [place] spotted fever Aug 12 2017 3:36PM Muscle cramps at night Aug 12 2017 3:36PM [place] spotted fever Aug 05 2017 2:10PM Diabetes [...] 9:50AM Kidney stone Aug 01 2021 9:58AM Payers Insurance Name Company Name Plan Name Plan Number Policy Number Frankie cy Group Number Start Date [facility] [id number] [facility] [id number] N/A Medicare Part B Medicare Of [place] [id number] May [place] Medical Assistance Program [place] Paco [place] [id number] N/A [place] State Plan [id number] N/A Medicare Part A Medicare Part A [id number] , 2004 Medicare Part A Medicare - Lab/Xray [id number] May Medicare RHC Medicare RHC [id number] N/A Medicare Part B Medicare Of [place] [id number] N/A History of Encounters Visit Date Visit [...] Linda DO 12/05/2020 Office visit MAUREEN CORONA ROLL SHOP SUPERVISOR 11/14/2020 Office visit Mike V. Linda DO 11/08/[address] Kevin Ruth MD 11/06/2020 Office visit Mike V. Linda DO 11/04/2020 [facility] Mary Tapia MD 11/02/2020 Office visit MAUREEN CORONA ROLL SHOP SUPERVISOR 09/11/2020 Office visit Mike V. Linda DO [...] 06/23/2017 Office visit Ashia Navarrete MD 06/08/2017 [facility] Mary Tapia MD 06/08/2017 Surgery Roscoe Brownlee MD 06/02/2017 Surgery Roscoe Brownlee MD 05/02/2017 Office visit Roscoe Brownlee MD 11/13/2016 Office visit Ashia Navarrete MD 11/05/2016 Office visit Gurwinder Alcala APR N 05/21/2016 [facility] Mary Tapia MD 02/04/2016 Office visit Geronimo Ansari ROLL SHOP SUPERVISOR 03/09/2015 [facility] Jamal Guevara MD 03/03/2015 Surgery Roscoe Brownlee MD 02/27/2015 Office visit Roscoe Brownlee MD 02/22/2015 Office visit Jamal Guevara MD 02/01/2015 Office visit Roscoe Brownlee MD 11/14/2012 [facility] Deysi Melo [facility] 11/14/2012 [facility] Mary Tapia MD 11/13/2012 [facility] SHANNON GOLDSTEIN MD 11/05/2012 [facility] DO 11/04/2012 [facility] DO 11/02/2012 [facility] 04/10/2010 Office visit Ernestina SHIELDS
--- OUTSIDE RECORDS SUMMARY | 2021-09-29 13:50 | XMS REPORT ---
Author Author Sola Hyde Organization [facility] Address [address] [place], [place] [address] Care Team Providers Care Director Operating Name Role Phone Cholo Hyde PCP Mike [...] W/MICRO C&S IF IND 08/01/2021 12:00 AM Medications Active Name Start [...] oral route 2 times a day omega 7-guf-oph-fish oil 1,000 mg (120 mg-180 mg) oral [...] Quant,IgM <0.80 RMSF, IgG, EIA Positive [place] Spotted Fever,IgM 0.54 E. chaffeensis (HME) IgGTiter [...] Not Entered 12/01/2021 12/01/2021 141 Influenza 10/15/2017 GlaxMipagarine SKB Flulaval quadrivalent 4 Z2L3 Not Entered Not Entered 12/09/2017 07/07/2015 158 Covid-19 01/15/2021 Moderna [employer] MOD Moderna COVID-19 Vaccin e [id number] Intramuscular Left Arm 12/01/2021 12/01/2021 207 Covid-19 [...] 2017 2:10PM Hematuria Aug 05 2017 2:10PM [place] spotted fever Aug 12 2017 3:36PM Muscle cramps at night Aug 12 2017 3:36PM [place] spotted fever Aug 05 2017 2:10PM Diabetes [...] of bladder cancer Aug 01 2021 9:52AM Payers Insurance Name Company Name Plan Name Plan Number Policy Number Frankie cy Group Number Start Date [facility] [id number] [facility] [id number] N/A Medicare Part B Medicare [facility] [id number] May [place] Medical Assistance Program [facility] Mariusz [place] [id number] N/A [employer] [place] [employer] [place] [id number] N/A Medicare Part A Medicare Part A [id number] May Medicare Part A Medicare - Lab/Xray [id number] May Medicare RHC Medicare RHC [id number] N/A Medicare Part B Medicare Of [place] [id number] N/A History of Encounters Visit Date Visit [...] Linda DO 12/05/2020 Office visit MAUREEN CORONA FULL STACK ENGINEER 11/14/2020 Office visit Mike V. Linda DO 11/08/[address] [facility] [address] Kevin Ruth MD 11/06/2020 Office visit Mike V. Linda DO 11/04/2020 [facility] Mary Tapia MD 11/02/2020 Office visit MAUREEN CORONA FULL STACK ENGINEER 09/11/2020 Office visit Mike V. Linda DO 10/06/2019 Office visit Mike V. Linda DO 10/05/2019 [facility] Mary Tapia MD 10/04/2019 Office visit Mike V. Linda DO 08/24/2019 Office visit Mike V. Linda DO 12/24/2018 Office visit Mike V. Linda DO 12/22/2018 Office visit Mike V. Linda DO 11/16/2018 Office visit Cholo Hyde MD 11/06/2018 Surgery Cholo Hyde MD 10/28/2018 Office visit Cholo Hyde MD 09/15/2018 Office visit Mike V. Linda DO 08/20/2018 [facility] Mary Tapia MD 05/11/2018 Office visit Mike V. Linda DO 12/09/2017 Office visit Ashia Navarrete MD 08/05/2017 Office visit 08/05/2017 Office visit Hemalatha Tejeda APR N 07/18/2017 Office visit Roscoe Brownlee MD 06/23/2017 Office visit Ashia Navarrete MD 06/08/2017 [facility] 06/08/2017 [facility] Mary Tapia MD 06/08/2017 Surgery Roscoe Brownlee MD 06/02/2017 Surgery Roscoe Brownlee MD 05/02/2017 Office visit Roscoe Brownlee MD 11/13/2016 Office visit Ashia Navarrete MD 11/05/2016 Office visit Gurwinder Alcala APR N 05/21/2016 [facility] Mary Tapia MD 02/04/2016 Office visit Geronimo Ansari FULL STACK ENGINEER 03/09/2015 [facility] Jamal Guevara MD 03/03/2015 Surgery Roscoe Brownlee MD 02/27/2015 Office visit Roscoe Brownlee MD 02/22/2015 Office visit Jamal Guevara MD 02/01/2015 Office visit Roscoe Brownlee MD 11/14/2012 [facility] Deysi Melo MD 11/14/2012 [facility] Mary Tapia MD 11/13/2012 [facility] Rolando Jain DO 11/06/2012 [facility] SHANNON GOLDSTEIN MD 11/05/2012 [facility] DO 11/04/2012 [facility] 11/02/2012 [facility] 04/10/2010 Office visit Ernestina SHIELDS
--- OUTSIDE RECORDS SUMMARY | 2021-09-29 13:50 | XMS REPORT ---
Author Author Sola Hyde [facility] Address [address] [place], [place] [id number] Care Team Providers Care Tube Backer Name Role Phone Cholo Hyde PCP Mike [...] oral route 2 times a day omega 6-rmo-ejg-fish oil 1,000 mg (120 mg-180 mg) oral [...] Not Entered 12/09/2017 07/07/2015 158 Covid-19 01/15/2021 [employer] MOD Moderna COVID-19 Vaccin e [id number] Intramuscular Left Arm 12/01/2021 12/01/2021 207 Covid-19 [...] 2017 2:10PM Hematuria Aug 05 2017 2:10PM [place] spotted fever Aug 12 2017 3:36PM Muscle cramps at night Aug 12 2017 3:36PM [place] spotted fever Aug 05 2017 2:10PM Diabetes [...] Number Frankie cy Group Number Start Date [id number] [facility] [id number] N/A Medicare Part B Medicare Of [place] [id number] May [place] Medical [place] [facility] [place] [id number] N/A [employer] [place] [employer] [id number] N/A Medicare Part A Medicare Part A [id number] , 2004 Medicare Part A Medicare - Lab/Xray [id number] May Medicare RHC Medicare RHC [id number] N/A Medicare Part B Medicare Of [place] [id number] N/A History of Encounters Visit Date Visit [...] Linda DO 12/05/2020 Office visit MAUREEN CORONA ARMY OFFICER 11/14/2020 Office visit Mike V. Linda DO 11/08/[address] [facility] [address] Kevin Ruth MD 11/06/2020 Office visit Mike V. Linda DO 11/04/2020 [facility] Mary Tapia MD 11/02/2020 Office visit MAUREEN CORONA ARMY OFFICER 09/11/2020 Office visit Mike V. Linda DO 10/06/2019 Office visit Mike V. Linda DO 10/05/2019 [facility] Mary Tapia MD 10/04/2019 Office visit Mike V. Linda DO 08/24/2019 Office visit Mike V. Linda DO 12/24/2018 Office visit Mike V. Linda DO 12/22/2018 Office visit Mike V. Linda DO 11/16/2018 Office visit Cholo Hyde MD 11/06/2018 Surgery Cholo Hyde MD 10/28/2018 Office visit Cholo Hyde MD 09/15/2018 Office visit Mike V. Linda DO 08/20/2018 [facility] Mary Tapia MD 05/11/2018 Office visit Mike Mckeon DO 12/09/2017 Office visit Ashia Navarrete MD 08/05/2017 Office visit 08/05/2017 Office visit Hemalatha Tejeda APR N 07/18/2017 Office visit Roscoe Brownlee MD 06/23/2017 Office visit Ashia Navarrete MD 06/08/[address] [facility] 06/08/2017 [facility] Mary Tapia MD 06/08/2017 Surgery Roscoe Brownlee MD 06/02/2017 Surgery Roscoe Brownlee MD 05/02/2017 Office visit Roscoe Brownlee MD 11/13/2016 Office visit Ashia Navarrete MD 11/05/2016 Office visit Gurwinder Alcala APR N 05/21/2016 [facility] Mary Tapia MD 02/04/2016 Office visit Geronimo Ansari ARMY OFFICER 03/09/2015 [facility] Jamal Guevara MD 03/03/2015 Surgery Roscoe Brownlee MD 02/27/2015 Office visit Roscoe Brownlee MD 02/22/2015 Office visit Jamal Guevara MD 02/01/2015 Office visit Roscoe Brownlee MD 11/14/2012 [facility] Deysi Melo MD 11/14/2012 [facility] Mary Tapia MD 11/13/2012 [facility] 11/06/2012 [facility] SHANNON GOLDSTEIN MD 11/05/2012 [facility] DO 11/04/2012 [facility] DO 11/02/2012 [facility] 04/10/2010 Office visit Ernestina SHIELDS
--- OUTSIDE RECORDS SUMMARY | 2021-09-29 13:50 | XMS REPORT ---
Author Author Sola Hyde [facility] Address [address] [place], [place] [address] Care Team Providers Care Dredge Mechanic Name Role Phone Cholo Hyde PCP Mike [...] oral route 2 times a day omega 7-fvk-ikp-fish oil 1,000 mg (120 mg-180 mg) oral [...] Ab, Quant,IgM <0.80 RMSF, IgG, EIA Positive [facility] Spotted Fever,IgM 0.54 E. chaffeensis (HME) [...] Not Entered 12/09/2017 07/07/2015 158 Covid-19 01/15/2021 [employer] MOD Moderna COVID-19 Vaccin e [id number] Intramuscular Left Arm 12/01/2021 12/01/2021 207 Covid-19 [...] 2017 2:10PM Hematuria Aug 05 2017 2:10PM [place] spotted fever Aug 12 2017 3:36PM Muscle cramps at night Aug 12 2017 3:36PM [place] spotted fever Aug 05 2017 2:10PM Diabetes [...] Number Frankie cy Group Number Start Date [facility] [id number] [facility] [id number] N/A Medicare Part B Medicare Of [place] [id number] May [place] Medical Assistance [place] [facility] Mariusz Mariog [id number] N/A [employer] [place] Plan [employer] [place] State Plan [id number] N/A Medicare Part A Medicare Part A [id number] May Medicare Part A Medicare - Lab/Xray [id number] May Medicare RHC Medicare RHC [id number] N/A Medicare Part B Medicare Of [place] [id number] N/A History of Encounters Visit Date Visit [...] DO 12/05/2020 Office visit MAUREEN CORONA VESSEL SLAG WORKER 11/14/2020 Office visit Mike V. Linda DO 11/08/[address] Kevin Ruth MD 11/06/2020 Office visit Mike V. Linda DO 11/04/2020 [facility] Mary Tapia MD 11/02/2020 Office visit MAUREEN CORONA VESSEL SLAG WORKER 09/11/2020 Office visit Mike V. Linda DO 10/06/2019 Office visit Mike V. Linda DO 10/05/2019 Hospital Mary Tapia MD 10/04/2019 Office visit Mike V. Linda DO 08/24/2019 Office visit Mike V. Linda DO 12/24/2018 Office visit Mike V. Linda DO 12/22/2018 Office visit Mike V. Linda DO 11/16/2018 Office visit Cholo Hyde MD 11/06/2018 Surgery Cholo Hyde MD 10/28/2018 Office visit Cholo Hyde MD 09/15/2018 Office visit Mike Mckeon DO 08/20/2018 [facility] Mary Tapia MD 05/11/2018 Office visit iMke Mckeon DO 12/09/2017 Office visit Ashia Navarrete MD 08/05/2017 Office visit 08/05/2017 Office visit Hemalatha ThuJodi Tejeda APR N 07/18/2017 Office visit Roscoe Brownlee MD 06/23/2017 Office visit Ashia Navarrete MD 06/08/2017 [facility] DO 06/08/2017 [facility] Mary Tapia MD 06/08/2017 Surgery Roscoe Brownlee MD 06/02/2017 Surgery Roscoe Brownlee MD 05/02/2017 Office visit Roscoe Brownlee MD 11/13/2016 Office visit Ashia Navarrete MD 11/05/2016 Office visit Gurwinder Alcala APR N 05/21/2016 [facility] Mary Tapia MD 02/04/2016 Office visit Geronimo Ansari VESSEL SLAG WORKER 03/09/2015 [facility] Jamal Guevara MD 03/03/2015 Surgery Roscoe Brownlee MD 02/27/2015 Office visit Roscoe Brownlee MD 02/22/2015 Office visit Jamal Guevara MD 02/01/2015 Office visit Roscoe Brownlee MD 11/14/2012 [facility] Deysi Melo MD 11/14/2012 [facility] Mary Tapia MD 11/13/2012 [facility] 11/06/2012 [facility] SHANNON GOLDSTEIN MD 11/05/2012 [facility] DO 11/04/2012 [facility] DO 11/02/2012 [facility] DO 04/10/2010 Office visit Ernestina SHIELDS
--- OUTSIDE RECORDS SUMMARY | 2021-09-29 13:50 | XMS REPORT ---
Author Author Sola Hyde [facility] Address [address] [place], [place] [id number] Care Team Providers Care Cyber Crime Investigator Name Role Phone Cholo Hyde PCP Mike [...] oral route 2 times a day omega 6-ung-tbw-fish oil 1,000 mg (120 mg-180 mg) oral [...] Ab, Quant,IgM <0.80 RMSF, IgG, EIA Positive [facility] Spotted Fever,IgM 0.54 E. chaffeensis (HME) [...] Not Entered 12/09/2017 07/07/2015 158 Covid-19 01/15/2021 [employer] MOD Moderna COVID-19 Vaccin e [id number] Intramuscular Left Arm 12/01/2021 12/01/2021 207 Covid-19 [...] 2017 2:10PM Hematuria Aug 05 2017 2:10PM [place] spotted fever Aug 12 2017 3:36PM Muscle cramps at night Aug 12 2017 3:36PM [place] spotted fever Aug 05 2017 2:10PM Diabetes [...] Number Frankie cy Group Number Start Date [facility] [id number] [facility] [id number] N/A Medicare Part B Medicare Of [place] [id number] May [place] Medical Assistance Program [place] [facility] Mariusz Mariog [id number] N/A [employer] [place] [employer] [place] [id number] N/A Medicare Part A Medicare Part A [id number] May Medicare Part A Medicare - Lab/Xray [id number] May Medicare RHC Medicare RHC [id number] N/A Medicare Part B Medicare Of [place] [id number] N/A History of Encounters Visit Date Visit [...] Linda DO 12/05/2020 Office visit MAUREEN CORONA MEDICAL ASSEMBLER 11/14/2020 Office visit Mike V. Linda DO 11/08/[address] Kevin Ruth MD 11/06/2020 Office visit Mike V. Linda DO 11/04/2020 [facility] Mary Tapia MD 11/02/2020 Office visit MAUREEN CORONA MEDICAL ASSEMBLER 09/11/2020 Office visit Mike V. Linda DO 10/06/2019 Office visit Mike V. Linda DO 10/05/2019 Hospital Mary Tapai MD 10/04/2019 Office visit Mike V. Linda DO 08/24/2019 Office visit Mike V. Linda DO 12/24/2018 Office visit Mike V. Linda DO 12/22/2018 Office visit Mike V. Linda DO 11/16/2018 Office visit Cholo Hyde MD 11/06/2018 Surgery Cholo Hyde MD 10/28/2018 Office visit Cholo Hyde MD 09/15/2018 Office visit Mike Mckeon DO 08/20/2018 [facility] Mary Tapia MD 05/11/2018 Office visit Mike Mckeon DO 12/09/2017 Office visit Ashia Navarrete MD 08/05/2017 Office visit 08/05/2017 Office visit Hemalatha ThuJodi Tejeda APR N 07/18/2017 Office visit Roscoe Brownlee MD 06/23/2017 Office visit Ashia Navarrete MD 06/08/2017 [facility] DO 06/08/2017 [facility] Mary Tapia MD 06/08/2017 Surgery Roscoe Brownlee MD 06/02/2017 Surgery Roscoe Brownlee MD 05/02/2017 Office visit Roscoe Brownlee MD 11/13/2016 Office visit Ashia Navarrete MD 11/05/2016 Office visit Gurwinder Alcala APR N 05/21/2016 [facility] Mary Tapia MD 02/04/2016 Office visit Geronimo Ansari MEDICAL ASSEMBLER 03/09/2015 [facility] Jamal Guevara MD 03/03/2015 Surgery Roscoe Brownlee MD 02/27/2015 Office visit Roscoe Brownlee MD 02/22/2015 Office visit Jamal Guevara MD 02/01/2015 Office visit Roscoe Brownlee MD 11/14/2012 [facility] Deysi Melo MD 11/14/2012 [facility] Mary Tapia MD 11/13/2012 [facility] 11/06/2012 [facility] SHANNON GOLDSTEIN MD 11/05/2012 [facility] DO 11/04/2012 [facility] DO 11/02/2012 [facility] DO 04/10/2010 Office visit Ernestina SHIELDS
--- OUTSIDE RECORDS SUMMARY | 2021-09-29 13:51 | XMS REPORT ---
Author Author Sola Hyde [facility] Address [address] [place], [place] [address] Care Team Providers Care Community Health Specialist Name Role Phone Shukri Hyde PCP Mike [...] AM ABDOMEN ONE VIEW 08/01/2021 12:00 AM CBC W/ AUTO DIFF (RFLX MAN DIFF IF IND). 09/26/2021 12:00 AM URINALYSIS ROUTINE C&S IF IND 09/26/2021 12:00 AM CMP 09/26/2021 12:00 AM Medications Active Name Start Date [...] oral route 2 times a day omega 1-mjy-yyo-fish oil 1,000 mg (120 mg-180 mg) oral [...] route once daily for 30 days Proscar mg oral tablet 10/28/2018 take 1 tablet [...] HC BMI BSA BMI Percentile O2 Sat(%) 09/26/2021 11:17:00 AM 100 mm[Hg] 48 mm[Hg] 74 {beats}/min 16 rpm 97.7 F 139.5 lbs 64 in 23.9449 kg/m2 1.6904 m2 95 % 09/12/2021 1:06:00 PM 122 mm[Hg] 64 mm[Hg] 58 {beats}/min 16 rpm 97.5 F 129.5 lbs 64 in 22.23 kg/m2 1.63 m2 96 % 08/27/2021 10:35:00 AM 124 [...] rpm 96.7 F 177 lbs 64 in 30.3817 kg/m2 1.904 m2 97 % 04/10/2010 3:44:00 PM 128 mm[Hg] 72 mm[Hg] 68 {beats}/min 16 rpm 97.5 F 194.125 lbs 65 in 32.30 kg/m2 2.01 m2 Social History Name Description Comments Tobacco [...] Ab, Quant,IgM <0.80 RMSF, IgG, EIA Positive [facility] Spotted Fever,IgM 0.54 E. chaffeensis [...] Not Entered 12/09/2017 07/07/2015 158 Covid-19 01/15/2021 [employer]. MOD Moderna COVID-19 Vaccin e [id number] Intramuscular Left Arm 12/01/2021 12/01/2021 207 Covid-19 [...] 2017 2:10PM Hematuria Aug 05 2017 2:10PM [place] spotted fever Aug 12 2017 3:36PM Muscle cramps at night Aug 12 2017 3:36PM [place] spotted fever Aug 05 2017 2:10PM Diabetes [...] to void Aug 01 2021 9:52AM Constipated Sep 2020 9:52AM Hx of bladder cancer Aug 01 2021 9:52AM Benign prostatic hyperplasia with lower urinary tract symptoms Sep 2020 9:50AM Other obstructive and reflux uropathy Sep 2020 9:50AM Dehydration Sep 2020 9:50AM Constipation Sep 2020 9:50AM Hx of completed stroke Sep 2020 9:50AM Kidney stone Sep 2020 9:58AM History of bladder cancer Sep 2020 9:50AM Kidney stones Sep 2020 9:50AM Constipation Sep 2020 9:16AM Dysuria Sep 2020 9:16AM Weight loss Aug 07 2021 9:16AM Benign prostatic hyperplasia with lower urinary tract symptoms Sep 2020 10:48AM Urinary obstruction Sep 2020 10:48AM Urinary hesitancy Sep 2020 11:02AM Cloudy urine Sep 2020 11:02AM Urinary hesitancy Sep 2020 10:39AM Cloudy [...] 3:21PM Urinary retention Sep 20 2021 3:21PM Urinary urgency Sep 26 2021 12:00PM Payers Insurance Name Company Name Plan Name Plan Number Policy Number Frankie cy Group Number [facility] [id number] [facility] [id number] N/A Medicare Part B Medicare Of [place] [id number] May [place] Medical Assistance [facility] Mariusz tanchris Prog [id number] N/A [employer] [place] [employer] [place] Plan [id number] N/A Medicare Part A Medicare Part A [id number] May Medicare Part A Medicare - Lab/Xray [id number] May Medicare RHC Medicare RHC [id number] N/A Medicare Part B Medicare Of [place] [id number] N/A History of Encounters Visit Date Visit Type Provider 09/26/[address] Shukri Hyde MD 09/20/2021 Office visit MAUREEN CORONA TAB CUTTER 09/17/2021 [facility] MD 09/12/[address] Shukri Hyde MD [...] Malaika NAGY RN 01/08/2021 Office visit Mike Lewisr DO 12/19/2020 Office visit Mike Lewisr DO 12/05/2020 Office visit MAUREEN CORONA TAB CUTTER 11/14/2020 Office visit Mike Lewisr DO 11/08/[address] Kevin Ruth MD 11/06/2020 Office visit Mike Mckeon DO 11/04/2020 Hospital Mary Tapia MD 11/02/2020 Office visit MAUREEN CORONA TAB CUTTER 09/11/2020 Office visit Mike V. Linda [...] Office visit Mike V. Linda DO 08/20/2018 [facility] Mary Tapia MD 05/11/2018 Office visit Mike V. Linda DO 12/09/2017 Office visit Ashia Navarrete MD 08/05/2017 Office visit 08/05/2017 Office visit Hemalatha Tejeda APR N 07/18/2017 Office visit Roscoe Brownlee MD 06/23/2017 Office visit Ashia Navarrete MD 06/08/2017 [facility] DO 06/08/2017 [facility] Mary Tapia MD 06/08/2017 Surgery Roscoe Brownlee MD 06/02/2017 Surgery Roscoe Brownlee MD 05/02/2017 Office visit Roscoe Brownlee MD 11/13/2016 Office visit Ashia Navarrete MD 11/05/2016 Office visit Gurwinder Alcala APR N 05/21/2016 [facility] Mary Tapia MD 02/04/2016 Office visit Geronimo Ansari TAB CUTTER 03/09/2015 [facility] Jamal Guevara MD 03/03/2015 Surgery Roscoe Brownlee MD 02/27/2015 Office visit Roscoe Brownlee MD 02/22/2015 Office visit Jamal Guevara MD 02/01/2015 Office visit Roscoe Brownlee MD 11/14/2012 [facility] Deysi Melo MD 11/14/2012 [facility] Mary Tapia MD 11/13/2012 [facility] Susy DO 11/06/2012 [facility] SHANNON GOLDSTEIN MD 11/05/2012 [facility] DO 11/04/2012 [facility] DO 11/02/2012 [facility] DO 04/10/2010 Office visit Ernestina SHIELDS
--- OUTSIDE RECORDS SUMMARY | 2021-09-29 13:51 | XMS REPORT ---
Author Author Sola Hyde Organization [facility] Address [address] [place], [place] [address] Care Team Providers Care Coil Winding Supervisor Name Role Phone Cholo Hyde PCP Mike Mckeon V PreferredProvider Unavailable Allergies and Adverse Reactions Name Reaction Notes TETANUS hives Cipro Plan of Treatment Planned Activity Comments Planned Date Planned Time Plan/Goal PSA TOTAL 04/24/2019 12:00 AM ESR 05/28/2021 12:00 AM Fecal occult blood test 06/07/2021 12:00 AM URINALYSIS W/MICRO C&S IF IND 07/06/2021 12:00 AM GI PANEL 07/27/2021 12:00 AM Medications Active Name Start Date [...] oral route 2 times a day omega 3-svx-ehf-fish oil 1,000 mg (120 mg-180 mg) oral [...] Ab, Quant,IgM <0.80 RMSF, IgG, EIA Positive [facility] Spotted Fever,IgM 0.54 E. chaffeensis [...] Not Entered 12/09/2017 07/07/2015 158 Covid-19 01/15/2021 [employer]. MOD Moderna COVID-19 Vaccin e [id number] Intramuscular Left Arm 12/01/2021 12/01/2021 207 Covid-19 [...] 2016 5:15PM Diverticulosis of intestine without blee trevor, unspecified intestinal tract location Nov 05 2016 [...] 2017 2:10PM Hematuria Aug 05 2017 2:10PM [place] spotted fever Aug 12 2017 3:36PM Muscle cramps at night Aug 12 2017 3:36PM [place] spotted fever Aug 05 2017 2:10PM Diabetes [...] 2021 1:23PM Constipated Jul 23 2021 1:23PM Payers Insurance Name Company Name Plan Name Plan Number Policy Number Frankie cy Group Number Start Date [facility] [address] [place] [id number] N/A Medicare Part B Medicare Of [place] [id number] May [place] Medical Assistance Program [place] [facility] Mariuszlul pettit Pro [id number] N/A [facility] [id number] N/A Medicare Part A Medicare Part A [id number] May Medicare Part A Medicare - Lab/Xray [id number] May Medicare RHC Medicare RHC [id number] N/A Medicare Part B Medicare Of [place] [id number] N/A History of Encounters Visit Date Visit [...] Linda DO 12/05/2020 Office visit MAUREEN CORONA VENDOR MANAGER 11/14/2020 Office visit Mike V. Linda DO 11/08/[address] Kevin Ruth MD 11/06/2020 Office visit Mike V. Linda DO 11/04/2020 Hospital Mary Tapia MD 11/02/2020 Office visit MAUREEN CORONA VENDOR MANAGER 09/11/2020 Office visit Mike V. Linda DO 10/06/2019 Office visit Mike V. Linda DO 10/05/2019 [facility] Mary Tapia MD 10/04/2019 Office visit Mike V. Linda DO 08/24/2019 Office visit Mike V. Linda DO 12/24/2018 Office visit Mike V. Linda DO 12/22/2018 Office visit Mike V. Linda DO 11/16/2018 Office visit Cholo Hyde MD 11/06/2018 Surgery Cholo Hyde MD 10/28/2018 Office visit Cholo Hyde MD 09/15/2018 Office visit Mike V. Linda DO 08/20/2018 [facility] Mary Tapia MD 05/11/2018 Office visit Mike V. Linda DO 12/09/2017 Office visit Ashia Navarrete MD 08/05/2017 Office visit 08/05/2017 Office visit Hemalatha Tejeda APR N 07/18/2017 Office visit Roscoe Brownlee MD 06/23/2017 Office visit Ashia Navarrete MD 06/08/2017 [facility] DO 06/08/2017 [facility] Mary Tapia MD 06/08/2017 Surgery Roscoe Brownlee MD 06/02/2017 Surgery Roscoe Brownlee MD 05/02/2017 Office visit Roscoe Brownlee MD 11/13/2016 Office visit Ashia Navarrete MD 11/05/2016 Office visit Gurwinder Alcala APR N 05/21/2016 [facility] Mary Tapia MD 02/04/2016 Office visit Geronimo Ansari VENDOR MANAGER 03/09/2015 [facility] Jamal Guevara MD 03/03/2015 Surgery Roscoe Brownlee MD 02/27/2015 Office visit Roscoe Brownlee MD 02/22/2015 Office visit Jamal Guevara MD 02/01/2015 Office visit Roscoe Brownlee MD 11/14/2012 [facility] Deysi Melo MD 11/14/2012 [facility] Mary Tapia MD 11/13/2012 [facility] 11/06/2012 [facility] SHANNON GOLDSTEIN MD 11/05/2012 [facility] 11/04/2012 [facility] 11/02/2012 [facility] 04/10/2010 Office visit Ernestina SHIELDS
--- OUTSIDE RECORDS SUMMARY | 2021-09-29 13:51 | XMS REPORT ---
Author Author Sola Hyde Organization [facility] Address [address] [place], [place] [address] Care Team Providers Care Broadcast Program Director Name Role Phone Cholo Hyde PCP Mike [...] oral route 2 times a day omega 7-bie-wkv-fish oil 1,000 mg (120 mg-180 mg) oral [...] Quant,IgM <0.80 RMSF, IgG, EIA Positive [facility] Spotted Fever,IgM 0.54 E. chaffeensis (HME) [...] Not Entered 12/09/2017 07/07/2015 158 Covid-19 01/15/2021 [employer]. MOD Moderna COVID-19 Vaccin e [id number] Intramuscular Left Arm 12/01/2021 12/01/2021 207 Covid-19 [...] 2017 2:10PM Hematuria Aug 05 2017 2:10PM [place] spotted fever Aug 12 2017 3:36PM Muscle cramps at night Aug 12 2017 3:36PM [place] spotted fever Aug 05 2017 2:10PM Diabetes [...] of bladder cancer Jul 23 2021 1:23PM Payers Insurance Name Company Name Plan Name Plan Number Policy Number Frankie cy Group Number Start Date [facility] [id number] [facility] [id number] N/A Medicare Part B Medicare Of [place] [id number] May [place] Medical [place] Program [place] [facility] Mariuszlul [place] [id number] N/A [employer] [employer] [place] [id number] N/A Medicare Part A Medicare Part A [id number] May Medicare Part A Medicare - Lab/Xray [id number] May Medicare [facility] Medicare [facility] [id number] N/A Medicare Part B Medicare Of [place] [id number] N/A History of Encounters Visit Date Visit [...] Linda DO 12/05/2020 Office visit MAUREEN CORONA FACILITY MAINTENANCE HELPER 11/14/2020 Office visit Mike V. Linda DO 11/08/[address] Kevin Ruth MD 11/06/2020 Office visit Mike V. Linda DO 11/04/2020 [facility] Mary Tapia MD 11/02/2020 Office visit MAUREEN CORONA FACILITY MAINTENANCE HELPER 09/11/2020 Office visit Mike V. Linda DO 10/06/2019 Office visit Mike V. Linda DO 10/05/2019 [facility] Mary Tapia MD 10/04/2019 Office visit Mike V. Linda DO 08/24/2019 Office visit Mike V. Linda DO 12/24/2018 Office visit Mike V. Linda DO 12/22/2018 Office visit Mike V. Linda DO 11/16/2018 Office visit Cholo Hyde MD 11/06/2018 Surgery Cholo Hyde MD 10/28/2018 Office visit Cholo Hyde MD 09/15/2018 Office visit Mike V. Linda DO 08/20/2018 [facility] Mary Tapia MD 05/11/2018 Office visit Mike V. Linda DO 12/09/2017 Office visit Ashia Navarrete MD 08/05/2017 Office visit 08/05/2017 Office visit Hemalatha Tejeda APR N 07/18/2017 Office visit Roscoe Brownlee MD 06/23/2017 Office visit Ashia Navarrete MD 06/08/2017 [facility] DO 06/08/2017 [facility] Mary Tapia MD 06/08/2017 Surgery Roscoe Brownlee MD 06/02/2017 Surgery Roscoe Brownlee MD 05/02/2017 Office visit Roscoe Brownlee MD 11/13/2016 Office visit Ashia Navarrete MD 11/05/2016 Office visit Gurwinder Alcala APR N 05/21/2016 [facility] Mary Tapia MD 02/04/2016 Office visit Geronimo Ansari FACILITY MAINTENANCE HELPER 03/09/2015 [facility] Jamal Guevara MD 03/03/2015 Surgery Roscoe Brownlee MD 02/27/2015 Office visit Roscoe Brownlee MD 02/22/2015 Office visit Jamal Guevara MD 02/01/2015 Office visit Roscoe Brownlee MD 11/14/2012 [facility] Deysi Melo MD 11/14/2012 [facility] Mary Tapia MD 11/13/2012 [facility] Rolando Jain DO 11/06/2012 [facility] SHANNON GOLDSTEIN MD 11/05/2012 [facility] 11/04/2012 [facility] 11/02/2012 [facility] 04/10/2010 Office visit Ernestina SHIELDS
--- OUTSIDE RECORDS SUMMARY | 2021-09-29 13:51 | XMS REPORT ---
Author Author Sola CORONA [facility] Address [address] [place], [place] [id number] Care Team Providers Care Seismograph Operator Helper Name Role Phone MAUREEN CORONA PCP Mike [...] oral route 2 times a day omega 9-mwm-xkw-fish oil 1,000 mg (120 mg-180 mg) oral [...] Ab, Quant,IgM <0.80 RMSF, IgG, EIA Positive [facility] Spotted Fever,IgM 0.54 E. [...] Not Entered 12/09/2017 07/07/2015 158 Covid-19 01/15/2021 [facility] MOD Moderna COVID-19 Vaccin e [id number] Intramuscular Left Arm 12/01/2021 12/01/2021 207 Covid-19 [...] 2017 2:10PM Hematuria Aug 05 2017 2:10PM [place] spotted fever Aug 12 2017 3:36PM Muscle cramps at night Aug 12 2017 3:36PM [place] spotted fever Aug 05 2017 2:10PM Diabetes [...] Number [place]ie [place] Group Number Start Date [facility] [address] [facility] [id number] N/A Medicare Part B Medicare Of [place] [id number] May [place] [facility] Mariusz [place] [id number] N/[place] [employer] [place] [employer] [place] [id number] N/A Medicare Part A Medicare Part A [id number] May Medicare Part A Medicare - Lab/Xray [id number] May Medicare RHC Medicare RHC [id number] N/A Medicare Part B Medicare [place] [id number] N/A History of Encounters Visit Date Visit Type Provider 09/20/2021 Office visit MAUREEN CORONA [employer] 09/12/[address] Shukri Hyde MD [...] Linda DO 12/05/2020 Office visit MAUREEN CORONA [employer] 11/14/2020 Office visit Mike V. Linda DO 11/08/[address] [facility] [address] Kevin Ruth MD 11/06/2020 Office visit Mike V. Linda DO 11/04/2020 [facility] Mary Tapia MD 11/02/2020 Office visit MAUREEN CORONA [employer] 09/11/2020 Office visit Mike V. Linda [...] Office visit Ashia Navarrete MD 06/08/2017 [facility] 06/08/2017 [facility] Mary Tapia MD 06/08/2017 Surgery Roscoe Brownlee MD 06/02/2017 Surgery Roscoe Brownlee MD 05/02/2017 Office visit Roscoe Brownlee MD 11/13/2016 Office visit Ashia Navarrete MD 11/05/2016 Office visit Gurwinder Alcala APR N 05/21/2016 [facility] Mary Tapia MD 02/04/2016 Office visit Geronimo Ansari [employer] 03/09/2015 [facility] Jamal Guevara MD 03/03/2015 Surgery Roscoe Brownlee MD 02/27/2015 Office visit Roscoe Brownlee MD 02/22/2015 Office visit Jamal Guevara MD 02/01/2015 Office visit Roscoe Brownlee MD 11/14/2012 [facility] Deysi Melo MD 11/14/2012 [facility] Mary Tapia MD 11/13/2012 [facility] 11/06/2012 [facility] SHANNON GOLDSTEIN MD 11/05/2012 [facility] DO 11/04/2012 [facility] DO 11/02/2012 [facility] 04/10/2010 Office visit Ernestina SHIELDS
--- NOTE | 2021-09-29 14:18 | ED General ---
General Chief Complaint: General Problems/Pain Stated Complaint: LETHARGY/FEVER Source of Information: Patient, Caregiver Exam Limitations: No Limitations History of Present Illness Date Seen by Provider: Sep 29, 2021 Time Seen by Provider: 14:05 Initial Comments Patient is an 81-year-old male who presents to the emergency room by ambulance today with his with a chief complaint of subjective fever, lethargy, weakness, reportedly was recently at the hospital in [facility] with urosepsis. He reportedly gets confused with infections and his is concerned with this too. He was hospitalized for 4 days and sent home on Augmentin which he completed last week. He had a follow-up appointment with blood work with his primary care on Friday of last week. His was able to contact the office and they told her that his sodium was "low". She tried treating it at home with chicken broth. She states his blood pressure came up a little bit it had been 88 systolic at home that day but she states he is continued to decline in overall functioning. She states that she caths him 3 times a day for urine although he is able to make urine on his own at night. No abdominal pain, nausea or vomiting. No diarrhea, black or bloody stools. He has had a little bit of swelling in his lower extremities. No chest pain or shortness of breath although he has had an increasingly what sounds like productive cough. She states that he has a poor appetite. All other review of systems reviewed and negative except as stated. Timing/Duration: 1 Week Severity: Moderate Associated Systoms: Malaise Allergies and Home Medications Allergies Coded Allergies: Tetanus Vaccines and Toxoid (Verified Allergy, Unknown, 09/29/21) ciprofloxacin (Verified Allergy, Unknown, 09/29/21) Patient Home Medication List Home Medication List Reviewed: Yes Review of Systems Review of Systems Constitutional: see HPI EENTM: no symptoms reported Respiratory: cough Cardiovascular: no symptoms reported Gastrointestinal: no symptoms reported Genitourinary: frequency Musculoskeletal: no symptoms reported Skin: no symptoms reported Psychiatric/Neurological: Weakness (generalized) All Other Systems Reviewed Negative Unless Noted: Yes Past Krqxcwd-Hxeqnx-Gwcolu Hx Patient Social History Tobacco Use?: No Smoking Status: Former Smoker Use of E-Cig and/or Vaping dev: No Substance use?: No Alcohol Use?: No Immunizations Up To Date First/Initial COVID19 Vaccinat: 2020 Second COVID19 Vaccination Joseph: 2020 COVID19 Vaccine Checker In: ZHENGKaylie Past Medical History Surgery/Hospitalization HX: 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 oz. kg; BMI Method: General Appearance: No Apparent Distress, WD/WN Eyes: Bilateral Eye Normal Inspection, Bilateral Eye PERRL, Bilateral Eye EOMI HEENT: PERRL/EOMI Neck: Normal Inspection Respiratory: Lungs Clear, Normal Breath Sounds, No Accessory Muscle Use, No Respiratory Distress, Other (coarse wet cough) Cardiovascular: Regular Rate, Rhythm, Normal Peripheral Pulses Gastrointestinal: Normal Bowel Sounds, Non Tender, Soft Extremity: Normal Inspection, Normal Range of Motion, Pedal Edema (1+ bilaterally) Neurologic/Psychiatric: Alert, Oriented x3, No Motor/Sensory Deficits, Normal Mood/Affect Skin: Normal Color Focused Exam Lactate Level 09/29/21 13:45: Lactic Acid Level 1.42 Lactic Acid Level Laboratory Tests Test 09/29/21 13:45 Lactic Acid Level 1.42 MMOL/L (0.50-2.00) Progress/Results/Core Measures Suspected Sepsis SIRS Temperature: Pulse: Respiratory Rate: Laboratory Tests 09/29/21 13:45: White Blood Count 2.6L Blood Pressure / Mean: 09/29/21 13:45: Lactic Acid Level 1.42 Laboratory Tests 09/29/21 13:45: Creatinine 0.81, INR Comment 1.2, Platelet Count 157, Total Bilirubin 0.3 Results/Orders Lab Results Laboratory Tests Test 09/29/21 13:45 09/29/21 16:10 Range/Units White Blood Count 2.6 L 4.3-11.0 10^3/uL Red Blood Count 2.62 L 4.30-5.52 10^6/uL Hemoglobin 7.8 L 13.3-17.7 g/dL Hematocrit 25 L 40-54 % Mean Corpuscular Volume 97 80-99 fL Mean Corpuscular Hemoglobin 30 25-34 pg Mean Corpuscular Hemoglobin Concent 31 L 32-36 g/dL Red Cell Distribution Width 14.6 H 10.0-14.5 % Platelet Count 157 130-400 10^3/uL Mean Platelet Volume 10.3 9.0-12.2 fL Immature Granulocyte % (Auto) 1 % Neutrophils (%) (Auto) 74 42-75 % Lymphocytes (%) (Auto) 17 12-44 % Monocytes (%) (Auto) 8 0-12 % Eosinophils (%) (Auto) 0 0-10 % Basophils (%) (Auto) 0 0-10 % Neutrophils # (Auto) 1.9 1.8-7.8 10^3/uL Lymphocytes # (Auto) 0.5 L 1.0-4.0 10^3/uL Monocytes # (Auto) 0.2 0.0-1.0 10^3/uL Eosinophils # (Auto) 0.0 0.0-0.3 10^3/uL Basophils # (Auto) 0.0 0.0-0.1 10^3/uL Immature Granulocyte # (Auto) 0.0 0.0-0.1 10^3/uL Prothrombin Time 15.1 H 12.2-14.7 SEC INR Comment 1.2 0.8-1.4 Activated Partial Thromboplast Time 47 H 24-35 SEC Sodium Level 137 135-145 MMOL/L Potassium Level 4.3 3.6-5.0 MMOL/L Chloride Level 104 98-107 MMOL/L Carbon Dioxide Level 24 21-32 MMOL/L Anion Gap 9 5-14 MMOL/L Blood Urea Nitrogen 18 7-18 MG/DL Creatinine 0.81 0.60-1.30 MG/DL Estimat Glomerular Filtration Rate 91 BUN/Creatinine Ratio 22 Glucose Level 114 H 70-105 MG/DL Lactic Acid Level 1.42 0.50-2.00 MMOL/L Calcium Level 8.1 L 8.5-10.1 MG/DL Corrected Calcium 9.1 8.5-10.1 MG/DL Total Bilirubin 0.3 0.1-1.0 MG/DL Aspartate Amino Transf (AST/SGOT) 24 5-34 U/L Alanine Aminotransferase (ALT/SGPT) 18 0-55 U/L Alkaline Phosphatase 64 40-136 U/L Total Protein 4.9 L 6.4-8.2 GM/DL Albumin 2.8 L 3.2-4.5 GM/DL Smear Scan YES Urine Color YELLOW Urine Clarity CLOUDY Urine pH 6.0 5-9 Urine Specific Watkins 1.020 1.016-1.022 Urine Protein 1+ H NEGATIVE Urine Glucose (UA) NEGATIVE NEGATIVE Urine Ketones NEGATIVE NEGATIVE Urine Nitrite POSITIVE H NEGATIVE Urine Bilirubin NEGATIVE NEGATIVE Urine Urobilinogen 0.2 < = 1.0 MG/DL Urine Leukocyte Esterase 3+ H NEGATIVE Urine RBC (Auto) TRACE-I H NEGATIVE Urine RBC NONE /HPF Urine WBC 25-50 H /HPF Urine Squamous Epithelial Cells NONE /HPF Urine Renal Epithelial Cells NONE /HPF Urine Crystals NONE /LPF Urine Bacteria LARGE H /HPF Urine Casts NONE /LPF Urine Mucus NEGATIVE /LPF Urine Culture Indicated CULTURE PENDING My Orders Orders - TIFFANY JORGENSEN MD Ed Iv/Invasive Line Start (09/29/21 14:16) Cbc With Automated Diff (09/29/21 14:16) Comprehensive Metabolic Panel (09/29/21 14:16) Blood Culture (09/29/21 14:16) Sputum Culture (09/29/21 14:16) Urinalysis (09/29/21 14:16) Urine Culture (09/29/21 14:16) Protime With Inr (09/29/21 14:16) Partial Thromboplastin Time (09/29/21 14:16) Chest 1 View, Ap/Pa Only (09/29/21 14:16) Ed Iv/Invasive Line Start (09/29/21 14:16) Ed Iv/Invasive Line Start (09/29/21 14:16) Vital Signs Adult Sepsis Patie Q15M (09/29/21 14:16) O2 (09/29/21 14:16) Remove Rings In Anticipation O (09/29/21 14:16) Lactic Acid Analyzer (09/29/21 14:16) Ns Iv 1000 Ml (Sodium Chloride 0.9%) (09/29/21 15:30) Chest Pa/Lat (2 View) (09/29/21 15:23) Vital Signs/I&O 09/29/21 13:43 Temp 37.1 Pulse 73 Resp 18 B/P (MAP) 111/51 (71) Pulse Ox 96 O2 Delivery Room Air Capillary Refill : Progress Note : Time: 17:10 Progress Note Discussion with the regarding low white blood cell count and urinary tract infection and general decline in function supports admission for IV antibiotics. Per review of his medical records from his hospitalization his urine culture grew out Proteus sensitive to cefepime. He is allergic to Cipro which would have also been a good choice. His states it makes him "crazy". His blood pressure is 119 systolic at this time. He is awake alert and mentating normally. I discussed the case with Dr. Gibson who requests the cefepime be given with gentle IV fluids lactated Ringer's at 100 mils per hour, PT consult. We will hold his blood pressure medications, metoprolol at this time. Blood cultures and urine cultures are pending. Diagnostic Imaging Diagonstic Imaging: Xray Plain Films/CT/US/NM/MRI: chest Comments [facility] [place] [place] NAME: DULCE REVELES JR [facility] REC#: [id number] PT STATUS: REG ER : 1940 PHYSICIAN: TIFFANY JORGENSEN MD ADMIT DATE: 09/29/21/ER Draft Date of Exam:09/29/21 CHEST PA/LAT (2 VIEW) HISTORY: Right apical consolidation. COMPARISON: Chest x-ray from the same day. TECHNIQUE: Two views of the chest. FINDINGS: A lordotic view was not performed. There is persistent opacity over the medial right lung apex. This could be hypertrophy of the anterior right 1st rib, but there is suggestion of airspace opacity in the right upper lobe on the lateral view. There is no significant pleural effusion or pneumothorax. The cardiac silhouette is stable in size. There are degenerative changes throughout the spine with flowing anterior osteophytes. IMPRESSION: Persistent right apical airspace opacity. While this could represent the anterior right 1st rib, it appears to be present on the lateral view as well. Consider CT to further evaluate. Dictated on workstation # [id number] Dict: 09/29/21 1608 Trans: 09/29/21 1613 [facility] [id number] Interpreted by: MAUREEN LUNA MD Electronically signed by: [facility] [place] NAME: DULCE REVELES JR [facility] REC#: [id number] PT STATUS: REG ER : 1940 PHYSICIAN: TIFFANY JORGENSEN MD ADMIT DATE: 09/29/21/ER Draft Date of Exam:09/29/21 CHEST 1 VIEW, AP/PA ONLY Clinical indication: Patient's states patient has been weak/lethargic. Patient has fever. Patient recently treated for UTI. Exam: Portable chest x-ray upright view. Comparisons: None. Findings: Lungs/pleura: There is increased density overlying the right lung apex region. This may be related to hypertrophic anterior right 1st rib versus lung infiltrate. There is discoid atelectasis involving the right midlung field. The remainder of the lungs are clear. There is no pneumothorax. There is no pleural effusion. Mediastinum: Unremarkable. Pulmonary vasculature: Unremarkable. Heart: Unremarkable. Bones/extrathoracic soft tissue: There are degenerative spurs involving the spine. Impression: 1: There is increased density overlying the right lung apex. This may be related to hypertrophic anterior aspect of the right 1st rib versus lung infiltrate or abnormality. Chest x-ray PA and lateral views, including lordotic views, would help better evaluate. 2: Otherwise, there is no radiographic evidence of acute cardiopulmonary process. Dictated on workstation # [id number] Dict: 09/29/21 1444 Trans: 09/29/21 1456 [facility] [id number] Interpreted by: THELMA GRADY MD Electronically signed by: Departure Communication (Admissions) Time/Spoke to Admitting Phy: 17:[address] Gibson Impression Primary Impression: Urinary tract infection Qualified Codes: N39.0 - Urinary tract infection, site not specified Additional Impressions: Generalized weakness Anemia Qualified Codes: D64.9 - Anemia, unspecified Disposition: ADMITTED INPATIENT Condition: Stable Admissions Decision to Admit Reason: Admit from ER (General) Decision to Admit/Date: Sep 29, 2021 Time/Decision to Admit Time: 17:13 Departure-Patient Inst. Referrals: NO,LOCAL PHYSICIAN (PCP/Family) Primary Care Physician TIFFANY JORGENSEN MD Sep 29, 2021 14:18
[2021-09-29 14:25] LABS: BASOPHILS % (AUTO) 0 % (0-10); EOSINOPHILS % (AUTO) 0 % (0-10); HEMATOCRIT 25 % (40-54); HEMOGLOBIN 7.8 g/dL (13.3-17.7); LYMPHOCYTES # (AUTO) 0.5 10^3/uL (1.0-4.0); LYMPHOCYTES % (AUTO) 17 % (12-44); MEAN CORPUSCULAR HEMOGLOBIN 30 pg (25-34); MEAN CORPUSCULAR HGB CONC 31 g/dL (32-36); MEAN CORPUSCULAR VOLUME 97 fL (80-99); MEAN PLATELET VOLUME 10.3 fL (9.0-12.2); MONOCYTES # (AUTO) 0.2 10^3/uL (0.0-1.0); MONOCYTES % (AUTO) 8 % (0-12); NEUTROPHILS # (AUTO) 1.9 10^3/uL (1.8-7.8); NEUTROPHILS % (AUTO) 74 % (42-75); PLATELET COUNT 157 10^3/uL (130-400); WHITE BLOOD COUNT 2.6 10^3/uL (4.3-11.0)
[2021-09-29 14:30] LABS: ALBUMIN 2.8 GM/DL (3.2-4.5); POTASSIUM 4.3 MMOL/L (3.6-5.0)
[2021-09-29 14:31] LABS: CALCIUM 8.1 MG/DL (8.5-10.1); INR 1.2 (0.8-1.4); PROTHROMBIN TIME PATIENT 15.1 SEC (12.2-14.7)
[2021-09-29 14:32] LABS: TOTAL PROTEIN 4.9 GM/DL (6.4-8.2)
[2021-09-29 14:34] LABS: BILIRUBIN,TOTAL 0.3 MG/DL (0.1-1.0)
[2021-09-29 14:36] LABS: CREATININE SERUM 0.81 MG/DL (0.60-1.30)
[2021-09-29 14:38] LABS: SMEAR SCAN COMMENT YES
--- NOTE | 2021-09-29 14:57 | Diagnostic Imaging Report ---
Clinical indication: Patient's states patient has been weak/lethargic. Patient has fever. Patient recently treated for UTI. Exam: Portable chest x-ray upright view. Comparisons: None. Findings: Lungs/pleura: There is increased density overlying the right lung apex region. This may be related to hypertrophic anterior right 1st rib versus lung infiltrate. There is discoid atelectasis involving the right midlung field. The remainder of the lungs are clear. There is no pneumothorax. There is no pleural effusion. Mediastinum: Unremarkable. Pulmonary vasculature: Unremarkable. Heart: Unremarkable. Bones/extrathoracic soft tissue: There are degenerative spurs involving the spine. Impression: 1: There is increased density overlying the right lung apex. This may be related to hypertrophic anterior aspect of the right 1st rib versus lung infiltrate or abnormality. Chest x-ray PA and lateral views, including lordotic views, would help better evaluate. 2: Otherwise, there is no radiographic evidence of acute cardiopulmonary process. Dictated by: Dictated on workstation # [id number]
[2021-09-29] MEDS ORDERED: NS IV 1000 ML 1,000 ML IV SCH (15:30)
--- NOTE | 2021-09-29 16:13 | Diagnostic Imaging Report ---
HISTORY: Right apical consolidation. COMPARISON: Chest x-ray from the same day. TECHNIQUE: Two views of the chest. FINDINGS: A lordotic view was not performed. There is persistent opacity over the medial right lung apex. This could be hypertrophy of the anterior right 1st rib, but there is suggestion of airspace opacity in the right upper lobe on the lateral view. There is no significant pleural effusion or pneumothorax. The cardiac silhouette is stable in size. There are degenerative changes throughout the spine with flowing anterior osteophytes. IMPRESSION: Persistent right apical airspace opacity. While this could represent the anterior right 1st rib, it appears to be present on the lateral view as well. Consider CT to further evaluate. Dictated by: Dictated on workstation # [id number]
[2021-09-29 16:16] LABS: BILIRUBIN,URINE NEGATIVE (NEGATIVE); CLARITY,URINE CLOUDY; COLOR,URINE YELLOW; GLUCOSE, URINE (UA) NEGATIVE (NEGATIVE); KETONES,URINE NEGATIVE (NEGATIVE); LEUKOCYTE ESTERASE ,URINE 3+ (NEGATIVE); NITRITE,URINE POSITIVE (NEGATIVE); PROTEIN,URINE 1+ (NEGATIVE)
[2021-09-29 16:25] LABS: BACTERIA,URINE LARGE /HPF; WBC,URINE 25-50 /HPF
[2021-09-29] MEDS ORDERED: CEFEPIME INJECTION 1,000 MG in WATER (STERILE) FOR INJECTION 10 ML IV ONE (18:30)
[2021-09-29 18:51] VITALS: BP 111/51
[2021-09-29] MEDS ORDERED: RT-ALBUTEROL/IPRATROPIUM 3 ML (DUONEB) VIAL INH PRN (19:00)
[2021-09-29 20:02] VITALS: BP 148/80
[2021-09-29] MEDS: LACTATED RINGERS 1,000 ML IV SCH (22:19)
[2021-09-30] VITALS (7 sets, daily range): BP systolic 105–132; BP diastolic 50–80
[2021-09-30] MEDS: CEFEPIME 1,000 MG/SWFI 10 ML IV PUSH IV SCH ×8 (00:06→18:49)
[2021-09-30] MEDS: ACETAMINOPHEN 325 MG TABLET PO PRN (00:12)
[2021-09-30 05:24] LABS: BASOPHILS % (AUTO) 0 % (0-10); EOSINOPHILS % (AUTO) 0 % (0-10); HEMATOCRIT 27 % (40-54); HEMOGLOBIN 8.4 g/dL (13.3-17.7); LYMPHOCYTES # (AUTO) 0.6 10^3/uL (1.0-4.0); LYMPHOCYTES % (AUTO) 11 % (12-44); MEAN CORPUSCULAR HEMOGLOBIN 29 pg (25-34); MEAN CORPUSCULAR HGB CONC 31 g/dL (32-36); MEAN CORPUSCULAR VOLUME 96 fL (80-99); MEAN PLATELET VOLUME 9.9 fL (9.0-12.2); MONOCYTES # (AUTO) 0.3 10^3/uL (0.0-1.0); MONOCYTES % (AUTO) 5 % (0-12); NEUTROPHILS # (AUTO) 4.5 10^3/uL (1.8-7.8); NEUTROPHILS % (AUTO) 83 % (42-75); PLATELET COUNT 182 10^3/uL (130-400); WHITE BLOOD COUNT 5.4 10^3/uL (4.3-11.0)
[2021-09-30 05:35] LABS: POTASSIUM 4.2 MMOL/L (3.6-5.0)
[2021-09-30 05:36] LABS: CALCIUM 7.9 MG/DL (8.5-10.1)
[2021-09-30 05:41] LABS: CREATININE SERUM 0.73 MG/DL (0.60-1.30)
[2021-09-30] MEDS: PANTOPRAZOLE 40 MG (PROTONIX) TAB PO SCH (05:59)
[2021-09-30] MEDS ORDERED: FLU QUAD HIGH DOSE 240 MCG/0.7 ML 2021-22 (FLUZONE) IM ONE (07:15)
[2021-09-30] MEDS: metFORMIN 500 MG (GLUCOPHAGE) TAB PO SCH (08:27)
[2021-09-30] MEDS: CLOPIDOGREL 75 MG (PLAVIX) TABLET PO SCH (08:27)
[2021-09-30] MEDS: ATENOLOL 50 MG (TENORMIN) TAB PO SCH (08:27)
[2021-09-30] MEDS: OLANZapine 5 MG ODT (ZyPREXA ZYDIS) PO SCH (08:27)
[2021-09-30] MEDS: FINASTERIDE (PROSCAR) 5 MG TAB PO SCH (08:27)
--- NOTE | 2021-09-30 10:50 | History & Physical-Hospitalist ---
History of Present Illness HPI/Chief Complaint Sola Cunningham Jr is an 81 year old male with PMH HTN, HLD, T2DM, who presented with fevers. He was recently admitted in [place] due to UTI. He completed a course of antibiotics. His reported that he was very weak. He is slightly confused on my exam. He reports having fevers and chills. He denies chest pain and shortness of breath. He denies abdominal pain. He denies nausea and vomiting. He reports significant weight loss. He reports anorexia. He is a former smoker. Source: patient Exam Limitations: clinical condition Date Seen 09/30/21 Time Seen by a Provider: 10:00 Attending Physician Joseph Venegas MD PCP No,Local Physician Referring Physician Date of Admission Sep 29, 2021 at 17:07 Home Medications & Allergies Home Medications Reviewed patient Home Medication Reconciliation performed by pharmacy medication reconciliations accredited pharmacy technician and/or nursing. Patients Allergies have been reviewed. Allergies Allergies Coded Allergies Tetanus Vaccines and Toxoid (Verified Allergy, Unknown, 09/29/21) ciprofloxacin (Verified Allergy, Unknown, 09/29/21) Past Fkmpmlq-Jcjuwn-Oovcci Hx Patient Social History Tobacco Use?: No Smoking Status: Former Smoker Use of E-Cig and/or Vaping dev: Unable to obtain Substance use?: Unable to obtain Alcohol Use?: Unable to obtain Pt feels they are or have been: Unable to obtain Immunizations Up To Date First/Initial COVID19 Vaccinat: 2020 Second COVID19 Vaccination Joseph: 2020 Tetanus Booster (TDap): Unknown Current Status Advance Directives: No Communicates: Verbally Primary Language: Greek Preferred Spoken Language: Greek Is interpretation needed?: No Implanted or Applied Medical D: Stents Past Medical History High Cholesterol, Hypertension Gastroesophageal Reflux Diabetes, Non-Insulin dep Family Medical History No Pertinent Family Hx Review of Systems Constitutional: chills, fever, weakness, weight loss EENTM: no symptoms reported Respiratory: no symptoms reported Cardiovascular: no symptoms reported Gastrointestinal: loss of appetite Genitourinary: no symptoms reported Musculoskeletal: no symptoms reported Skin: no symptoms reported Psychiatric/Neurological: No Symptoms Reported Physical Exam Physical Exam Vital Signs Vital Signs - First Documented 09/29/21 09/29/21 09/29/21 13:43 18:51 20:02 Temp 37.1 Pulse 73 Resp 18 B/P (MAP) 111/51 (71) Pulse Ox 96 O2 Delivery Room Air O2 Flow Rate 3.00 FiO2 21 Capillary Refill : Less Than 3 Seconds Height, Weight, BMI Height: '" Weight: lbs. oz. kg; 22.31 BMI Method: General Appearance: No Apparent Distress, Chronically ill HEENT: PERRL/EOMI, Pharynx Normal Neck: Normal Inspection, Supple Respiratory: Lungs Clear, Normal Breath Sounds, No Respiratory Distress Cardiovascular: Regular Rate, Rhythm, No Edema, No Murmur, Normal Peripheral Pulses Gastrointestinal: Normal Bowel Sounds, Non Tender, Soft Extremity: Normal Inspection, Non Tender, No Pedal Edema Neurologic/Psychiatric: Alert, Oriented x3, No Motor/Sensory Deficits, Normal Mood/Affect Skin: Normal Color, Warm/Dry Results Results/Procedures Labs Laboratory Tests 09/29/21 13:45 09/30/21 05:07 Patient resulted labs reviewed. Imaging: Reviewed Imaging Report Assessment/Plan Admission Diagnosis Sepsis due to UTI Admission Status: Inpatient Order (span 2 midnights) Reason for Inpatient Admission: IV antibiotics Assessment and Plan Sepsis due to UTI UA consistent with UTI Urine culture pending IV fluids Cefepime Lung mass Weight loss CXR with right apical opacity CT Chest with right apical lung masses and lymphadenopathy Consider PET vs biopsy Anemia Add on iron studies, B12, folate BPH Finasteride Flomax DVT prophylaxis: held for possible biopsy Diagnosis/Problems Diagnosis/Problems (1) Sepsis due to urinary tract infection Status: Acute (2) Mass of right lung Status: Acute (3) Weight loss Status: Acute (4) BPH (benign prostatic hyperplasia) Status: Acute Qualifiers: Lower urinary tract symptom presence: symptoms present (5) Anemia Status: Acute Qualifiers: Anemia type: unspecified type Qualified Codes: D64.9 - Anemia, unspecified JOSEPH VENEGAS MD Sep 30, 2021 10:50
[2021-09-30] MEDS: LACTATED RINGERS 1,000 ML IV SCH ×2 (11:27→21:23)
--- NOTE | 2021-09-30 11:48 | Diagnostic Imaging Report ---
PROCEDURE: CT chest without contrast. TECHNIQUE: Multiple contiguous axial images were obtained through the chest without the use of intravenous contrast. Auto Exposure Controls were utilized during the CT exam to meet ALARA standards for radiation dose reduction. INDICATION: Abnormal chest x-ray. Right apical opacity. Weakness. COMPARISON: Chest radiographs 09/29/2021. FINDINGS: Peripheral masslike irregular opacity in the medial right lung apex measures up to 3.2 x 2.5 x 5.8 cm. This appears contiguous with a right upper lobe irregular masslike density more inferiorly measuring approximately 2.8 x 3.0 cm axially. Dependent interstitial and airspace opacity in the right upper lobe is less masslike than the other right upper lobe opacities. Ill-defined groundglass opacity in the left upper lobe measuring up to 1.8 x 1.3 cm. Indeterminate solid pulmonary nodule in the left upper lobe measuring up to 0.6 cm. Enlarged precarinal lymph node measuring up to 1.1 cm. Enlarged right hilar lymph node measuring up to 1.5 cm in short axis dimension. Moderate bilateral pleural effusions. Advanced atherosclerotic calcifications in the coronary arteries. Small pericardial effusion measuring up to 0.6 cm in thickness. No acute findings in the visualized upper abdomen on this noncontrast exam. No acute osseous findings. IMPRESSION: 1. Irregular masslike opacities in the right upper lobe suspicious for neoplasm. There is also right hilar and mediastinal lymphadenopathy. Recommend further evaluation with nuclear medicine FDG PET/CT versus CT-guided biopsy. 2. Additional pulmonary opacities in the upper lobes bilaterally are indeterminate and could represent infectious/inflammatory versus chronic changes. 3. Moderate bilateral pleural effusions. 4. Small pericardial effusion. Dictated by: Dictated on workstation # [id number]
[2021-09-30] MEDS: TAMSULOSIN 0.4 MG (FLOMAX) CAP PO SCH (18:49)
[2021-10-01] VITALS (7 sets, daily range): BP systolic 109–127; BP diastolic 51–70
[2021-10-01] MEDS: CEFEPIME 1,000 MG/SWFI 10 ML IV PUSH IV SCH ×8 (00:47→21:44)
[2021-10-01] MEDS: LACTATED RINGERS 1,000 ML IV SCH ×2 (03:00→09:04)
[2021-10-01 05:39] LABS: BASOPHILS % (AUTO) 1 % (0-10); EOSINOPHILS % (AUTO) 0 % (0-10); HEMATOCRIT 29 % (40-54); HEMOGLOBIN 8.8 g/dL (13.3-17.7); LYMPHOCYTES # (AUTO) 1.2 10^3/uL (1.0-4.0); LYMPHOCYTES % (AUTO) 19 % (12-44); MEAN CORPUSCULAR HEMOGLOBIN 29 pg (25-34); MEAN CORPUSCULAR HGB CONC 31 g/dL (32-36); MEAN CORPUSCULAR VOLUME 95 fL (80-99); MEAN PLATELET VOLUME 9.9 fL (9.0-12.2); MONOCYTES # (AUTO) 0.3 10^3/uL (0.0-1.0); MONOCYTES % (AUTO) 5 % (0-12); NEUTROPHILS # (AUTO) 4.9 10^3/uL (1.8-7.8); NEUTROPHILS % (AUTO) 75 % (42-75); PLATELET COUNT 230 10^3/uL (130-400); WHITE BLOOD COUNT 6.5 10^3/uL (4.3-11.0)
[2021-10-01 05:50] LABS: POTASSIUM 4.4 MMOL/L (3.6-5.0)
[2021-10-01 05:51] LABS: CALCIUM 8.2 MG/DL (8.5-10.1)
[2021-10-01 05:55] LABS: CREATININE SERUM 0.74 MG/DL (0.60-1.30)
[2021-10-01] MEDS: PANTOPRAZOLE 40 MG (PROTONIX) TAB PO SCH (06:38)
[2021-10-01] MEDS: ATENOLOL 50 MG (TENORMIN) TAB PO SCH (09:01)
[2021-10-01] MEDS: metFORMIN 500 MG (GLUCOPHAGE) TAB PO SCH (09:01)
[2021-10-01] MEDS: FINASTERIDE (PROSCAR) 5 MG TAB PO SCH (09:01)
[2021-10-01] MEDS: OLANZapine 5 MG ODT (ZyPREXA ZYDIS) PO SCH (09:01)
[2021-10-01] MEDS: CLOPIDOGREL 75 MG (PLAVIX) TABLET PO SCH (09:01)
--- NOTE | 2021-10-01 09:59 | Physical Therapy Evaluation ---
PT Evaluation-General Medical Diagnosis Admission Date Sep 29, 2021 at 17:07 Medical Diagnosis: UTI/anemia Onset Date: Sep 29, 2021 Therapy Diagnosis Therapy Diagnosis: generalized weakness/debility Precautions Precautions/Isolations: Fall Prevention, Standard Precautions Weight Bear Status Right Lower Extremity: Right Weight Bearing/Tolerated Left Lower Extremity: Left Weight Bearing/Tolerated Referral Physician: Paige Reason for Referral: Evaluation/Treatment Medical History Pertinent Medical History: CVA, DM, HTN Current History EMS secondary to weakness, lethargy, fever Reviewed History: Yes Social History Home: Single Level Current Living Status: Spouse Prior Prior Level of Function SCALE: Activities may be completed with or without assistive devices. 2-Uxoqdpcsnx-epzppsv completes the activity by him/herself with no assistance from a helper. 5-Set-up or Clean-up Assistance-helper sets up or cleans up; patient completes activity. [place] assists only prior to or following the activity. 4-Supervision or Touching Assistance-helper provides verbal cues and/or touch ing/steadying and/or contact guard assistance as patient completes activity. Assistance may be provided throughout the activity or intermittently. 3-Partial/Moderate Assistance-helper does LESS THAN HALF the effort. [place] lifts, holds or supports trunk or limbs, but provides less than half the effort. 2-Substantial/Maximal Assistance-helper does MORE THAN HALF the effort. [place] lifts or holds trunk or limbs and provides more than half the effort. 7-Sgukfrezo-xktaid does ALL the effort. Patient does none of the effort to complete the activity. Or, the assistance of 2 or more helpers is required for the patient to complete the activity. If activity was not attempted, code reason: 7-Patient Refused. 9-Not Applicable-not attempted and the patient did not perform the activity before the current illness, exacerbation or injury. 10-Not Attempted due to Environmental Limitations-(lack of equipment, weather restraints, etc.). 88-Not Attempted due to Medical Conditions or Safety Concerns. Bed Mobility: 6 Transfers (B,C,W/C): 6 Gait: 6 Indoor Mobility (Ambulation): Independent PT Evaluation-Current Subjective Patient is incontinent urine requiring assistance to cleanse and change. Patient is very confused and agitated resisting all interventions. Objective Patient Orientation: Confused Attachments: IV ROM/Strength ROM Lower Extremities bilateral LE WFL Strength Lower Extremities 3/5 grossly bilateral LE (observation with mobility) Integumentary/Posture Bladder Incontinence: Yes Posture WFL Neuromuscular (Tone, Coordination, Reflexes) grossly intact Sensory Vision: Unable to Assess Transfers Lying to Sitting/Side of Bed(Q: 2 Sit to Stand (QC): 2 Chair/Kay-vn-Ehemj Xfer(QC): 2 max assist with all mobility due to resistance and agitation Gait Does the Patient Walk?: Yes Mode of Locomotion: Walk Anticipated Mode of Locomotion: Walk Walk 10 feet (QC): 2 Walk 50 ft with 2 Turns(QC): 88 Walk 150 ft (QC): 88 Distance: 12' Gait Assistive Device: FWW Comments/Gait Description patient ended up throwing his FWW due to agitation/resistive gait Balance Sitting Static: Fair Sitting Dynamic: Fair Standing Static: Fair Standing Dynamic: Fair Treatment patient required dependent assist to cleanse and change due to incontinent urine Assessment/Needs 81 y.o. male, will benefit from skilled PT to address functional strength and mobility to improve current LOF to safely return to home with spouse at maximum LOF. Rehab Potential: Guarded PT Long-Term Goals Long-Term Goals PT Long-Term Goals Time Frame: Oct 20, 2021 Roll Left & Right (QC): 5 Sit to Lying (QC): 5 Lying-Sitting on Side/Bed(QC): 5 Sit to Stand (QC): 5 Chair/Cdk-il-Ooixx Xfer(QC): 5 Toilet Transfer (QC): 5 Walk 10 feet (QC): 5 Walk 50ft with 2 Turns (QC): 5 Walk 150 ft (QC): 5 PT Plan Problem List Problem List: Activity Tolerance, Functional Strength, Safety, Balance, Gait, Transfer, Bed Mobility Treatment/Plan Treatment Plan: Continue Plan of Care Treatment Plan: Bed Mobility, Education, Functional Activity Melody, Functional Strength, Gait, Safety, Therapeutic Exercise, Transfers Treatment Duration: Oct 20, 2021 Frequency: 6 times per week Estimated Hrs Per Day: .25 hour per day Patient and/or Family Agrees t: Yes Time/GCodes Time In: 815 Time Out: 832 Total Billed Treatment Time: 17 Total Billed Treatment 1 visit EVModC 17 min ARIANNE THACKER PT Oct 01, 2021 09:59
--- NOTE | 2021-10-01 10:54 | Progress Note - Hospitalist ---
Subjective HPI/CC On Admission Date Seen by Provider: Oct 01, 2021 Time Seen by Provider: 10:46 Sola Cunningham Jr is an 81 year old male with PMH HTN, HLD, T2DM, who presented with fevers. He was recently admitted in [place] due to UTI. He completed a course of antibiotics. His reported that he was very weak. He is slightly confused on my exam. He reports having fevers and chills. He denies chest pain and shortness of breath. He denies abdominal pain. He denies nausea and vomiting. He reports significant weight loss. He reports anorexia. He is a former smoker. Subjective/Events-last exam Pt sleeping in chair. Patient states he's not feeling well but cannot clarify further. at bedside. She is concerned about many things. He has had recurernt UTIs since October but has been unable to get TURP. He has had a general decline with weight loss as well. We discussed results of CT and concern for cancer. Plan to get urology concult to assist with urinary retention management and oncology consult to help with work up for cancer. She also pulls me out of the room and states she is likely not able to care for him at home any longer and will need to look at nursing facility. After our visit RN reports that patient has also had recent mitali psych admission. Focused Exam Lactate Level 09/29/21 13:45: Lactic Acid Level 1.42 Objective Exam Vital Signs Vital Signs Date Time Temp Pulse Resp B/P (MAP) Pulse Ox O2 Delivery O2 Flow Rate FiO2 10/01/21 10:28 Nasal Cannula 3.00 10/01/21 08:00 37.2 67 20 117/56 (76) 99 09/29/21 18:51 21 Capillary Refill : Less Than 3 Seconds General Appearance: No Apparent Distress, Chronically ill, Thin Respiratory: Lungs Clear, No Respiratory Distress Cardiovascular: Regular Rate, Rhythm, No Murmur Neurologic/Psychiatric: Alert, Oriented x3 Results/Procedures Lab Laboratory Tests 10/01/21 05:20 Patient resulted labs reviewed. Imaging: Reviewed Imaging Report Assessment/Plan Assessment and Plan Assess & Plan/Chief Complaint Sepsis due to UTI BPH UA consistent with UTI Urine culture growing citrobacter freundii, await sensitivities IV fluids Cefepime Finasteride Flomax Recurrent UTIs per , urology consulted Discussed with Dr Ivanna who recommended decreasing parameters for straight cath to 300cc, order placed Lung mass- likely already metastatic cancer given lymphadenopathy- POA Weight loss CXR with right apical opacity CT Chest with right apical lung masses and lymphadenopathy Due to continued confusion will get brain MRI Discussed with Dr Moreau who will see in consultation Anemia Iron deficient, will transfuse iron once infection parameters improving Debility PT/OT reports need for SNF vs [facility] professional services manager consulted, appreciate recs DVT prophylaxis: held for possible biopsy Diagnosis/Problems Diagnosis/Problems (1) Sepsis due to urinary tract infection Status: Acute (2) Mass of right lung Status: Acute (3) BPH (benign prostatic hyperplasia) Status: Acute Qualifiers: Lower urinary tract symptom presence: symptoms present Lower urinary tract symptom detail: incomplete bladder emptying Qualified Codes: N40.1 - Benign prostatic hyperplasia with lower urinary tract symptoms; R39.14 - Feeling of i ncomplete bladder emptying (4) Weight loss Status: Acute (5) Anemia Status: Acute Qualifiers: Anemia type: iron deficiency Iron deficiency anemia type: unspecified iron deficiency Qualified Codes: D50.9 - Iron deficiency anemia, unspecified (6) Generalized weakness Status: Acute DINA SOLANO MD Oct 01, 2021 10:54
[2021-10-01] MEDS ORDERED: LORazepam 0.5 MG (ATIVAN) TABLET PO PRN (11:00)
--- NOTE | 2021-10-01 11:45 | Occ Therapy Progress Note ---
Therapy Progress Note OT orders received and chart reviewed. OT attempted evaluation this AM, but pt in bed with eyes closed. OT attempted to wake pt, he opened his eyes, then closed them. Pt too lethargic to actively participate in skilled therapy at this time. OT will attempt again later. 1, visit 1045 TEODORO ECHEVERRIA OT Oct 01, 2021 11:45
[2021-10-01] MEDS ORDERED: SUCR1TAB PO (12:19)
[2021-10-01] MEDS ORDERED: PANT40TA52 PO (12:19)
[2021-10-01] MEDS ORDERED: MONT10TA32 PO (12:19)
[2021-10-01] MEDS ORDERED: LATA7.5D OS (12:19)
[2021-10-01] MEDS ORDERED: METF-865 PO (12:19)
[2021-10-01] MEDS ORDERED: ATEN25TA PO (12:19)
[2021-10-01] MEDS ORDERED: OLN5T PO (12:19)
[2021-10-01] MEDS ORDERED: CLOP75TA28 PO (12:19)
[2021-10-01] MEDS ORDERED: ATOR80TA76 PO (12:19)
[2021-10-01] MEDS ORDERED: ASPI-999 PO (12:19)
[2021-10-01] MEDS ORDERED: BRIM5DRO OS (12:19)
[2021-10-01] MEDS ORDERED: TMSL.4C PO (12:19)
[2021-10-01] MEDS ORDERED: FINA5TAB6 PO (12:19)
--- NOTE | 2021-10-01 13:04 | Diagnostic Imaging Report ---
INDICATION: Screening for MRI. Evaluation for metallic orbital foreign body. COMPARISON: None. FINDINGS: Frontal and lateral radiographic views of the orbits were obtained. No unexpected metallic foreign bodies are seen. No acute osseous abnormalities are identified. Visualized portions of the sinuses are clear. IMPRESSION: 1. No unexpected periorbital metallic foreign body. Dictated by: Dictated on workstation # [id number]
--- NOTE | 2021-10-01 13:52 | Occ Therapy Progress Note ---
Therapy Progress Note OT attempted evaluation this afternoon, upon entering the room, pt states "go away". When asked how he was doing he replied "not good". OT informed pt who she was and purpose and benefit of OT, he continued to refuse therapy. OT will attempt again tomorrow. 1, refusal 1329 TEODORO ECHEVERRIA OT Oct 01, 2021 13:52
--- NOTE | 2021-10-01 14:58 | Diagnostic Imaging Report ---
PROCEDURE: MR imaging of the brain with and without contrast. TECHNIQUE: Multiplanar, multisequence MR imaging of the brain was performed with and without contrast. INDICATION: Lung cancer. COMPARISON: No prior studies are available for comparison. FINDINGS: The ventricles and sulci are prominent, consistent with cerebral atrophy. There appears to be an old lacunar infarct in the right ventura radiata. White matter changes in the periventricular and subcortical regions bilaterally are noted as well as within the medardo. There is no evidence of an acute intra-axial or extra-axial hemorrhage. No definite restriction is seen on diffusion-weighted images to suggest acute infarct. The corpus callosum is unremarkable. The sella and parasellar structures are unremarkable. Post contrast images are without evidence of an enhancing lesion to suggest intracranial metastatic disease. There is a small amount of fluid in the maxillary sinuses bilaterally. IMPRESSION: Chronic and senescent changes. There is no evidence of intracranial metastatic disease or acute infarct. Dictated by: Dictated on workstation # [id number]
[2021-10-01] MEDS ORDERED: GADOTERATE 0.5 MMOL/ML (CLARISCAN) 20 ML VIAL IV ONE (15:00)
[2021-10-01] MEDS: TAMSULOSIN 0.4 MG (FLOMAX) CAP PO SCH (18:21)
[2021-10-01] MEDS ORDERED: NON-FORMULARY MEDICATION 1 EA EA (Latanoprost/Pf (Latanoprost 0.005% Eye Drop) 1 DROP) OS SCH (21:00)
[2021-10-01] MEDS ORDERED: NON-FORMULARY MEDICATION 1 EA EA (Brimonidine Tartrate/Timolol (Combigan Eye Drops) 1 DROP OS SCH (21:00)
[2021-10-01] MEDS: TIMOLOL MALEATE 0.5% 5 ML (TIMOPTIC) BTL OS SCH (21:43)
[2021-10-01] MEDS: LATANOPROST 0.005% (XALATAN) OPHTH SOLN 2.5 ML OS SCH (21:43)
[2021-10-01] MEDS: BRIMONIDINE 0.2% (ALPHAGAN) OPHTH SOLN 5 ML BTL OS SCH (21:43)
--- NOTE | 2021-10-01 22:02 | CONSULTATION REPORT ---
DATE OF SERVICE: 10/01/2021 PHYSICIAN REQUESTING CONSULTATION: Dr. Martina Rosales. The patient is admitted to room 412. IMPRESSION: 1. An 81-year-old male admitted with a febrile illness and found to have urinary tract infection with Citrobacter that is sensitive to cefepime. The patient is on treatment with cefepime and continue this. 2. Mental status change, most likely due to the urinary tract infection/sepsis syndrome. Continue to monitor this closely. 3. Incidental finding of right upper lobe mass with right hilar and subcarinal lymphadenopathy. The patient has significant history of tobacco use in the past. Needs to rule out primary lung malignancy. RECOMMENDATIONS: 1. Continue management of urinary tract infection/sepsis syndrome as you are doing. 2. Agree with urology evaluation because of BPH and causing recurrent urinary tract infections. 3. Once the patient is stable, we will obtain CT-guided needle biopsy of the right upper lobe lung mass for tissue diagnosis. 4. The patient will also need a PET CT scan for staging and further evaluation of the right upper lobe pulmonary nodule. This could be scheduled as an outpatient when he is stable. 5. I will follow the patient with you and make appropriate recommendations in the interim. BRIEF HISTORY: The patient is an 81-year-old male who was brought to the emergency room with febrile illness. He has significant BPH and recurrent urinary tract infections, which has been worsening over the last year. Recently, he was admitted to [facility] due to urinary tract infection. He became more confused over the past several days and became febrile and he was brought to [facility] Emergency Room and admitted with a urinary tract infection. During the workup for confusion, CT scan of the chest was obtained, which showed a right upper lobe pulmonary mass with right hilar and subcarinal lymphadenopathy. Because of this, an oncology consultation was requested for further recommendations. The patient is somnolent and barely arouses with tactile stimulation. Most of the history was obtained from his common law who was present during the interview. 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 PREVIOUS SURGERIES: Appendectomy in the remote past, bilateral iliac stent placement and coronary artery disease with cardiac stent placements. He has had significant BPH as mentioned in the history of present illness requiring straight catheterization multiple times daily. SOCIAL HISTORY: The patient lives in [place], [place] with his common law . He has three children, a son who lives in [place], a daughter who lives in [place] and another daughter who lives in [place]. He has extensive history of tobacco use but quit smoking 20 years ago. 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 He has significant exposure to dust and paint fumes throughout his life. FAMILY HISTORY: Unremarkable. PHYSICAL EXAMINATION: GENERAL: Showed an elderly male, somnolent and barely arousable with stimulus. Unable to give any history. VITAL SIGNS: His temperature was 37.0 degree centigrade. Pulse rate of 63. Respirations 20. Blood pressure 111/66 and oxygen saturation of 93% on 3 liters of oxygen by nasal cannula. HEENT: Normocephalic, oral mucosa moist. NECK: Supple, with no JVD. No cervical, supraclavicular or axillary lymphadenopathy palpable. CHEST: Symmetrical. LUNGS: With diminished breath sounds bilaterally without wheezes or rales. CARDIOVASCULAR: Regular in rate and rhythm. No murmurs or gallops heard. ABDOMEN: Soft, nontender with no hepatosplenomegaly or other masses palpable. EXTREMITIES: Showed no edema. NEUROLOGIC: Could not be completed as he was somnolent. LABORATORY DATA: CBC done today showed WBC 6.5, hemoglobin 8.8, platelet count 230,000 with neutrophil count 4.9 and lymphocyte count 1.2. BMP done today showed normal electrolytes. BUN was 17 and creatinine 0.74 with GFR 101 mL/min. Serum iron studies done yesterday showed serum iron less than 5 with iron binding capacity low at 146 and ferritin elevated at 460.4 which is consistent with anemia of chronic disease. Vitamin B12 level was 417 and folate was more than 20. TSH was 1.0. Protime was 15.1 with INR of 1.2 and PTT of 47. Urinalysis was positive for nitrite and 3+ leukocyte esterase with large amount of bacteria. Culture showed Citrobacter freundii resistant to amoxicillin/clavulanic acid, ampicillin, cefazolin, ceftriaxone and cefuroxime, but sensitive to cefepime, ciprofloxacin, meropenem, nitrofurantoin and trimethoprim sulfa. CT scan of the chest and abdomen done yesterday showed irregular mass like opacities of the right upper lobe suspicious for neoplasm. Right hilar and subcarinal lymphadenopathy was also noted. Additional pulmonary opacities in the upper lobes bilaterally are indeterminate and could represent infectious/inflammatory versus chronic changes. Moderate bilateral pleural effusions and small pericardial effusion noted. MRI of the brain done today showed chronic and senescent changes. No evidence of intracranial metastatic disease or an acute infarct. An old lacunar infarct in the right ventura radiata noted. Thank you for allowing me to participate in this patient's care. I will follow the patient with you and make appropriate recommendations. Job ID: [id number] DocumentID: [id number] Dictated Date: 10/01/2021 19:23:31 Tube Turner Date: 10/01/2021 22:01:30 Dictated By: LISA CODY MD MTDD
[2021-10-02 03:31] VITALS: BP 128/69
[2021-10-02] MEDS: PANTOPRAZOLE 40 MG (PROTONIX) TAB PO SCH (06:32)
[2021-10-02] MEDS: SUCRALFATE 1 GM (CARAFATE) TAB PO SCH ×2 (06:32→19:03)
[2021-10-02] MEDS: CEFEPIME 1,000 MG/SWFI 10 ML IV PUSH IV SCH ×6 (06:33→22:53)
[2021-10-02 07:25] VITALS: BP 127/60
[2021-10-02 07:56] LABS: HEMATOCRIT 29 % (40-54); HEMOGLOBIN 9.1 g/dL (13.3-17.7); MEAN CORPUSCULAR HEMOGLOBIN 30 pg (25-34); MEAN CORPUSCULAR HGB CONC 31 g/dL (32-36); MEAN CORPUSCULAR VOLUME 95 fL (80-99); PLATELET COUNT 232 10^3/uL (130-400); WHITE BLOOD COUNT 4.1 10^3/uL (4.3-11.0)
[2021-10-02 08:13] LABS: CALCIUM 8.2 MG/DL (8.5-10.1); CREATININE SERUM 0.71 MG/DL (0.60-1.30); POTASSIUM 4.3 MMOL/L (3.6-5.0)
[2021-10-02] MEDS: ASPIRIN 81 MG CHEW (CHILDREN'S ASA) PO SCH (09:34)
[2021-10-02] MEDS: OLANZapine 5 MG ODT (ZyPREXA ZYDIS) PO SCH (09:34)
[2021-10-02] MEDS: FINASTERIDE (PROSCAR) 5 MG TAB PO SCH (09:34)
[2021-10-02] MEDS: MONTELUKAST 10 MG (SINGULAIR) TAB PO SCH (09:34)
[2021-10-02] MEDS: CLOPIDOGREL 75 MG (PLAVIX) TABLET PO SCH (09:34)
[2021-10-02] MEDS: ATENOLOL 50 MG (TENORMIN) TAB PO SCH (09:34)
[2021-10-02] MEDS: BRIMONIDINE 0.2% (ALPHAGAN) OPHTH SOLN 5 ML BTL OS SCH ×4 (09:35→22:10)
[2021-10-02] MEDS: TIMOLOL MALEATE 0.5% 5 ML (TIMOPTIC) BTL OS SCH ×3 (09:35→22:10)
[2021-10-02] MEDS: metFORMIN 500 MG (GLUCOPHAGE) TAB PO SCH (09:51)
--- NOTE | 2021-10-02 09:55 | Physical Therapy Daily Note ---
PT Daily Note-Current Subjective Noted increase agitation. Mental Status Patient Orientation: Confused Transfers SCALE: Activities may be completed with or without assistive devices. 8-Gdokfdhlcg-adtgwag completes the activity by him/herself with no assistance from a helper. 5-Set-up or Clean-up Assistance-helper sets up or cleans up; patient completes activity. [place] assists only prior to or following the activity. 4-Supervision or Touching Assistance-helper provides verbal cues and/or touching/steadying and/or contact guard assistance as patient completes activity. Assistance may be provided throughout the activity or intermittently. 3-Partial/Moderate Assistance-helper does LESS THAN HALF the effort. [place] lifts, holds or supports trunk or limbs, but provides less than half the effort. 2-Substantial/Maximal Assistance-helper does MORE THAN HALF the effort. [place] lifts or holds trunk or limbs and provides more than half the effort. 1-Vwbluwiws-yoqmfl does ALL the effort. Patient does none of the effort to complete the activity. Or, the assistance of 2 or more helpers is required for the patient to complete the activity. If activity was not attempted, code reason: 7-Patient Refused. 9-Not Applicable-not attempted and the patient did not perform the activity before the current illness, exacerbation or injury. 10-Not Attempted due to Environmental Limitations-(lack of equipment, weather restraints, etc.). 88-Not Attempted due to Medical Conditions or Safety Concerns. Sit to Lying (QC): 2 Lying to Sitting/Side of Bed(Q: 2 Sit to Stand (QC): 2 sit to stand max assist with patient becoming increasingly agitated and resistive. Nursing students assist to cleanse and place brief on. Weight Bearing Right Lower Extremity: Right Weight Bearing/Tolerated Left Lower Extremity: Left Weight Bearing/Tolerated Gait Training Distance: 5' Gait Assistive Device: None max assist with patient resisting all mobility Exercises Standing: Sit to Stand (x 4 sets) Treatments Patient incontinent urine requiring dependent assist to cleanse and change clothing and bedding. Assessment Patient currently not safe for OOB/up to recliner due to agitation. Patient returned to bed with 4 rails up, bed alarm activated and bed in chair position. PT [facility] Goals Network Director Goals PT Network Director Goals Time Frame: Oct 20, 2021 Roll Left & Right (QC): 5 Sit to Lying (QC): 5 Lying-Sitting on Side/Bed(QC): 5 Sit to Stand (QC): 5 Chair/Yrc-vg-Fdqyg Xfer(QC): 5 Toilet Transfer (QC): 5 Walk 10 feet (QC): 5 Walk 50ft with 2 Turns (QC): 5 Walk 150 ft (QC): 5 PT Plan Treatment/Plan Treatment Plan: Continue Plan of Care Treatment Plan: Bed Mobility, Education, Functional Activity Melody, Functional Strength, Gait, Safety, Therapeutic Exercise, Transfers Treatment Duration: Oct 20, 2021 Frequency: 6 times per week Estimated Hrs Per Day: .25 hour per day Patient and/or Family Agrees t: Yes Time/GCodes Time In: 810 Time Out: 833 Total Billed Treatment Time: 23 Total Billed Treatment 1 visit FA x 2 23 min ARIANNE THACKER PT Oct 02, 2021 09:55
--- NOTE | 2021-10-02 10:33 | Progress Note - Hospitalist ---
Subjective HPI/CC On Admission Date Seen by Provider: Oct 02, 2021 Time Seen by Provider: 10:28 Sola Cunningham Jr is an 81 year old male with PMH HTN, HLD, T2DM, who presented with fevers. He was recently admitted in [place] due to UTI. He completed a course of antibiotics. His reported that he was very weak. He is slightly confused on my exam. He reports having fevers and chills. He denies chest pain and shortness of breath. He denies abdominal pain. He denies nausea and vomiting. He reports significant weight loss. He reports anorexia. He is a former smoker. Subjective/Events-last exam Pt more alert today. No complaints. Thinks he is in [place] though. No family at bedside. Focused Exam Lactate Level 09/29/21 13:45: Lactic Acid Level 1.42 Objective Exam Vital Signs Vital Signs Date Time Temp Pulse Resp B/P (MAP) Pulse Ox O2 Delivery O2 Flow Rate FiO2 10/02/21 07:25 37.4 69 18 127/60 (82) 94 Nasal Cannula 3.00 10/01/21 22:14 Capillary Refill : Less Than 3 Seconds General Appearance: No Apparent Distress, Chronically ill, Thin Respiratory: Lungs Clear, No Respiratory Distress Cardiovascular: Regular Rate, Rhythm, No Murmur Neurologic/Psychiatric: Alert, Disoriented (knows name only) Results/Procedures Lab Laboratory Tests 10/02/21 07:50 Patient resulted labs reviewed. Imaging: Reviewed Imaging Report Assessment/Plan Assessment and Plan Assess & Plan/Chief Complaint Sepsis due to UTI BPH UA consistent with UTI Urine culture growing citrobacter freundii, sensitive to cefepime which he is on Finasteride Flomax Recurrent UTIs per , urology consulted Discussed with Dr Goncalves who recommended decreasing parameters for straight cath to 300cc, order placed Urology consult, appreciate assistance Lung mass- likely already metastatic cancer given lymphadenopathy- POA Weight loss CXR with right apical opacity CT Chest with right apical lung masses and lymphadenopathy Brain MRI negative for metastatic disease Discussed with Dr Moreau who will see in consultation Will need biopsy, may be able to do this as an outpatient Anemia Iron deficient, will transfuse iron prior to DC Debility PT/OT reports need for SNF vs [facility] nursing surgical services director consulted, appreciate recs DVT prophylaxis: held for possible biopsy Diagnosis/Problems Diagnosis/Problems (1) Sepsis due to urinary tract infection Status: Acute (2) Mass of right lung Status: Acute (3) BPH (benign prostatic hyperplasia) Status: Acute Qualifiers: Lower urinary tract symptom presence: symptoms present Lower urinary tract symptom detail: incomplete bladder emptying Qualified Codes: N40.1 - Benign prostatic hyperplasia with lower urinary tract symptoms; R39.14 - Feeling of incomplete bladder emptying (4) Weight loss Status: Acute (5) Anemia Status: Acute Qualifiers: Anemia type: iron deficiency Iron deficiency anemia type: unspecified iron deficiency Qualified Codes: D50.9 - Iron deficiency anemia, unspecified (6) Generalized weakness Status: Acute DINA SOLANO MD Oct 02, 2021 10:33
--- NOTE | 2021-10-02 11:19 | Occ Therapy Progress Note ---
Therapy Progress Note OT evaluation attempted. Pt in bed sleeping with present at bedside. requests OT to attempt again later and let pt sleep, as he is pretty agitated when awake. Pt's provides some information about pt's PLOF, states she has to help him up/down stairs and lately has had to assist pt with all ADLs including bathing, dressing, and changing his brief when soiled. Pt has required assistance since his stroke ~October 2020. OT will attempt evaluation this a fternoon per request. 1, visit 1105 TEODORO ECHEVERRIA OT Oct 02, 2021 11:18
[2021-10-02 11:24] VITALS: BP 141/87
--- NOTE | 2021-10-02 13:51 | Occ Therapy Progress Note ---
Therapy Progress Note Pt laying in bed, eyes closed upon OT arrival. OT attempted to wake pt for therapy, but he continued to keep his eyes closed. OT asked if he could open his eyes, he mumbles "I suppose", but kept eyes closed. Pt unable to actively participate in OT tx at this time due to lethargy, OT will attempt evaluation tomorrow. 1, visit 1330 TEODORO ECHEVERRIA OT Oct 02, 2021 13:50
--- NOTE | 2021-10-02 15:18 | CONSULTATION REPORT ---
DATE OF SERVICE: 10/02/2021 ATTENDING PHYSICIAN: Dr. Rosales. SUMMARY: After reviewing the patient's record, interviewing his , this is an 81-year-old white man with history of enlarged prostate, recurrent urinary tract infection, urinary retention, straight cath by his three or four times a day. He is a patient of Dr. Hyde at [facility] who was planning to do a TURP, but unable to do so because of the recurrent urinary tract infection as well as being on aspirin and Plavix. Now, he is being admitted with possible sepsis, weakness, dehydration, was found to have metastatic lung cancer. According to his , his rectal exam, ultrasound of his prostate and his PSA by Dr. Hyde were not suspicious for any cancer of the prostate. We did not perform any examination on him. The patient is pretty weak and sleeping. IMPRESSION: Benign prostatic hypertrophy with retention. PLAN: I had a lengthy discussion with the patient's including all the above risk factors and the high risk surgery, we discussed the possibility of UroLift; however, if the prostate was of good size and has retention, it may not work, so in the present situation especially with the cancer lung, may be just supportive treatment for the patient, continue the straight cath or if needed leave a catheter in and just let the patient rest. The patient lives here that he will continue follow up with Dr. Hyde, let him make the final decision. CC: Dr. Rosalse -- requested, unable to deliver. Job ID: [id number] DocumentID: [id number] Dictated Date: 10/02/2021 11:16:40 Felt Finishing Supervisor Date: 10/02/2021 15:17:01 Dictated By: LEXX ALDANA MD MTDD
[2021-10-02 15:53] VITALS: BP 133/55
--- NOTE | 2021-10-02 16:02 | Physician Query Clarification ---
Physician Query-General Query to Physician: The medical record reflects the following clinical evidence: Clinical Indicators: Weakness, Weight loss, eating 10% or less for last 3 days, 1+ non-pitting edema, (albumin 2.8) Risk Factor(s): Suspected advanced cancer, Advanced age, Anorexia Treatment: Monitoring oral intake, encouraging increased PO intake. 1. Unspecified severe protein-calorie malnutrition 2. Unspecified Moderate protein-calorie malnutrition 3. Other explanation of clinical findings 4. Unable to determine (no explanation for clinical findings) Please clarify and document your clinical opinion in the progress notes and discharge summary including the definitive and/or presumptive diagnosis, (suspected or probable), related to the above clinical findings. Please include clinical findings supporting your diagnosis. Luz Maria Mccormack [phone] [email or web address] PHYSICIAN RESPONSE: Based on the clinical findings in the record, please respond to the query above on this document as an addendum. Physician Response: Physician Response 2 If you have questions please contact: Diplomatic Courier: Ext: Thank you for your time and cooperation. Clinical Greige Goods Inspector/Diplomatic Courier This is a permanent part of the medical record LUZ MARIA MCCORMACK Oct 02, 2021 16:02 DINA SOLANO MD Oct 04, 2021 09:15
[2021-10-02] MEDS: TAMSULOSIN 0.4 MG (FLOMAX) CAP PO SCH (19:03)
[2021-10-02 20:58] VITALS: BP 118/58
[2021-10-02] MEDS: LATANOPROST 0.005% (XALATAN) OPHTH SOLN 2.5 ML OS SCH ×2 (21:09→22:10)
[2021-10-03] VITALS (8 sets, daily range): BP systolic 112–144; BP diastolic 54–67
[2021-10-03] MEDS: CEFEPIME 1,000 MG/SWFI 10 ML IV PUSH IV SCH ×6 (06:08→21:12)
[2021-10-03] MEDS: SUCRALFATE 1 GM (CARAFATE) TAB PO SCH ×2 (06:08→15:05)
[2021-10-03] MEDS: PANTOPRAZOLE 40 MG (PROTONIX) TAB PO SCH (06:09)
[2021-10-03] MEDS: FINASTERIDE (PROSCAR) 5 MG TAB PO SCH (09:31)
[2021-10-03] MEDS: CLOPIDOGREL 75 MG (PLAVIX) TABLET PO SCH (09:31)
[2021-10-03] MEDS: ASPIRIN 81 MG CHEW (CHILDREN'S ASA) PO SCH (09:31)
[2021-10-03] MEDS: ATENOLOL 50 MG (TENORMIN) TAB PO SCH (09:31)
[2021-10-03] MEDS: OLANZapine 5 MG ODT (ZyPREXA ZYDIS) PO SCH (09:31)
[2021-10-03] MEDS: MONTELUKAST 10 MG (SINGULAIR) TAB PO SCH (09:31)
[2021-10-03] MEDS: TIMOLOL MALEATE 0.5% 5 ML (TIMOPTIC) BTL OS SCH ×2 (09:32→21:11)
[2021-10-03] MEDS: BRIMONIDINE 0.2% (ALPHAGAN) OPHTH SOLN 5 ML BTL OS SCH ×3 (09:32→21:11)
--- NOTE | 2021-10-03 09:52 | Progress Note - Urology ---
Progress Note-Urology Progress Notes/Assess & Plan Progress/Assessment & Plan STATUS QUO CHIANG Final Diagnosis BPH AND RETENTION WITH UTI AND H/O UTIS LEXX ALDANA MD Oct 03, 2021 09:52
--- NOTE | 2021-10-03 10:15 | Discharge Inst-Skilled Nursing ---
Discharge Inst-Skilled NF Chief Complaint Sola Cunningham Jr is an 81 year old male with PMH HTN, HLD, T2DM, who presented with fevers. He was recently admitted in [place] due to UTI. He completed a course of antibiotics. His reported that he was very weak. He is slightly confused on my exam. He reports having fevers and chills. He denies chest pain and shortness of breath. He denies abdominal pain. He denies nausea and vomiting. He reports significant weight loss. He reports anorexia. He is a former smoker. Consult/Follow Up/Orders Follow Up Appt.: With Dr Goncalves, Dr Moreau, and your PCP in the next 1-2 weeks. Skilled NF Admit to: Certification (SNF) I certify that SNF services are required to be given on an inpatient basis because of the above named patient's need for half-way care on a continuing basis for the conditions(s) for which he/she was receiving inpatient hospital services prior to his/her transfer to the SNF. Senior Living Facility Order: Nursing Services, Tennis Centre Manager-Evaluate & Treat, Physical Therapy-Evaluate & Treat Oxygen Delivery Method: Nasal Cannula Oxygen Flow Rate L/min (Range): 3lpm Discharge Diet: No Restrictions Daily Activity as Tolerated: Yes Resuscitation Status: Full Code New & Resume Previous Orders Dina Rosales Oct 03, 2021 10:13 DINA ROSALES MD Oct 03, 2021 10:15
[2021-10-03] MEDS ORDERED: SULF-221 PO (10:16)
--- NOTE | 2021-10-03 10:16 | Physical Therapy Daily Note ---
PT Daily Note-Current Subjective Patient in bed pre tx, agrees to PT, has no complaints of pain. Appearance Patient in recliner post tx with nurse call, phone, tray, chair alarm on. Mental Status Patient Orientation: Person, Confused Transfers SCALE: Activities may be completed with or without assistive devices. 2-Mxjzrtokbw-aefeyzj completes the activity by him/herself with no assistance from a helper. 5-Set-up or Clean-up Assistance-helper sets up or cleans up; patient completes activity. [place] assists only prior to or following the activity. 4-Supervision or Touching Assistance-helper provides verbal cues and/or touching/steadying and/or contact guard assistance as patient completes activity. Assistance may be provided throughout the activity or intermittently. 3-Partial/Moderate Assistance-helper does LESS THAN HALF the effort. Sharon lifts, holds or supports trunk or limbs, but provides less than half the effort. 2-Substantial/Maximal Assistance-helper does MORE THAN HALF the effort. Sharon lifts or holds trunk or limbs and provides more than half the effort. 1-Ynkvgabys-wvxxud does ALL the effort. Patient does none of the effort to complete the activity. Or, the assistance of 2 or more helpers is required for the patient to complete the activity. If activity was not attempted, code reason: 7-Patient Refused. 9-Not Applicable-not attempted and the patient did not perform the activity before the current illness, exacerbation or injury. 10-Not Attempted due to Environmental Limitations-(lack of equipment, weather restraints, etc.). 88-Not Attempted due to Medical Conditions or Safety Concerns. Roll Left & Right (QC): 3 Lying to Sitting/Side of Bed(Q: 2 Sit to Stand (QC): 1 Chair/Rqa-js-Mhxrq Xfer(QC): 1 Patient needs 2 person assist to stand and transfers to recliner. He is able to take a few steps to the recliner using a rolling walker but leans backward severely and also needs 2 person assist for this. Weight Bearing Right Lower Extremity: Right Weight Bearing/Tolerated Left Lower Extremity: Left Weight Bearing/Tolerated Gait Training Distance: 3' Gait Persons Needed: 2 Gait Assistive Device: FWW 2 person assist Exercises Seated Therapy Exercises: Long arc quads Seated Reps: 15 Treatments bed mobility and transfers, ambulation, LE exercise Assessment Current Status: Poor Progress Patient fairly agreeable to therapy. He has been resisting movement before now, but he participated today. PT Management Associate Goals Penitentiary Goals PT Penitentiary Goals Time Frame: Oct 20, 2021 Roll Left & Right (QC): 5 Sit to Lying (QC): 5 Lying-Sitting on Side/Bed(QC): 5 Sit to Stand (QC): 5 Chair/Qtd-jd-Odydi Xfer(QC): 5 Toilet Transfer (QC): 5 Walk 10 feet (QC): 5 Walk 50ft with 2 Turns (QC): 5 Walk 150 ft (QC): 5 PT Plan Problem List Problem List: Activity Tolerance, Functional Strength, Safety, Balance, Gait, Transfer, Bed Mobility, ROM Treatment/Plan Treatment Plan: Continue Plan of Care Treatment Plan: Bed Mobility, Education, Functional Activity Melody, Functional Strength, Gait, Safety, Therapeutic Exercise, Transfers Treatment Duration: Oct 20, 2021 Frequency: 6 times per week Estimated Hrs Per Day: .25 hour per day Patient and/or Family Agrees t: Yes Safety Risks/Education Patient Education: Gait Training, Transfer Techniques, Correct Positioning, Safety Issues Teaching Recipient: Patient Teaching Methods: Demonstration, Discussion Response to Teaching: Reinforcement Needed Time/GCodes Time In: 934 Time Out: 0962 Total Billed Treatment Time: 12 Total Billed Treatment 1 visit FA MICHAEL SANCHEZ PT Oct 03, 2021 10:16
--- NOTE | 2021-10-03 10:17 | Occupational Therapy Eval ---
OT Evaluation-General/PLF Medical Diagnosis Admission Date Sep 29, 2021 at 17:07 Medical Diagnosis: UTI/anemia Onset Date: Sep 29, 2021 Therapy Diagnosis Therapy Diagnosis: decreased ADL status Precautions Precautions/Isolations: Fall Prevention, Standard Precautions Referral Physician: Paige Maria Reason: Evaluation/Treatment Medical History Pertinent Medical History: CVA, DM, HTN Additional Medical History HTN, HLD, DM, GERD Current History ED due to fever, lethargy/weakness, recently hospitalized in [facility] with UTI Social History Home: Single Level Current Living Status: Spouse ADL-Prior Level of Function SCALE: Activities may be completed with or without assistive devices. 8-Bdhecjajsq-pjzsgfn completes the activity by him/herself with no assistance from a helper. 5-Set-up or Clean-up Assistance-helper sets up or cleans up; patient completes activity. [place] assists only prior to or following the activity. 4-Supervision or Touching Assistance-helper provides verbal cues and/or touching/steadying and/or contact guard assistance as patient completes activity. Assistance may be provided throughout the activity or intermittently. 3-Partial/Moderate Assistance-helper does LESS THAN HALF the effort. [place] lifts, holds or supports trunk or limbs, but provides less than half the effort. 2-Substantial/Maximal Assistance-helper does MORE THAN HALF the effort. [place] lifts or holds trunk or limbs and provides more than half the effort. 3-Dtfnyhmtd-kelcsi does ALL the effort. Patient does none of the effort to complete the activity. Or, the assistance of 2 or more helpers is required for the patient to complete the activity. If activity was not attempted, code reason: 7-Patient Refused. 9-Not Applicable-not attempted and the patient did not perform the activity before the current illness, exacerbation or injury. 10-Not Attempted due to Environmental Limitations-(lack of equipment, weather restraints, etc.). 88-Not Attempted due to Medical Conditions or Safety Concerns. ADL PLOF Comments Pt's spouse has to help pt up/down stairs, and assistance with all ADLs including bathing and dressing, as well as changing his brief when he soils it. He is able to complete UE dressing for the most part, requires some assistance at times, total assist showering and LE dressing/footwear, pt has poor motivation to complete tasks himself. Pt's has been caring for him since his stroke in Oct 2020. Pt is mainly sedentary, brings him items/food he wants. Self Care: Needed Some Help Functional Cognition: Unknown OT Current Status Subjective Pt in bed, at bedside. Pt's left room when therapist entered. Mental Status/Objective Patient Orientation: Confused, Unable to Assess Attachments: [place] Catheter, Oxygen Current Dentures/Partials: Yes Upper Extremity ROM pt unable to follow instructions to test. Upper Extremity Strength pt unable to follow instructions to assess ADL-Treatment Eating (QC): 2 (Pt requires assistance with bringing cup to mouth, placing straw between lips. Pt able to drink through straw with mod verbl cues. Assistance with bringing food to mouth.) On/Off Footwear (QC): 1 (based on clincial judgment.) Toileting Hygiene (QC): 1 (based on clincial judgment.) Other Treatments Pt in bed, transferred supine to sit EOB, max A. Pt leaning hard towards L side when at EOB. Pt stood at FWW, transferring to recliner. Assist x2 for sit to stand transfer and transfer to recliner. He took a few steps with FWW, but leans backwards severely requiring 2 person assistance. Post tx, pt up in recliner, call light in reach and all needs met, chair alarm activated. Education OT Patient Education: Correct positioning, Modified ADL techniques, Progress toward Goal/Update tx plan, Purpose of tx/functional activities Teaching Recipient: Patient Teaching Methods: Discussion Response to Teaching: Unable to Return Demonstration, Unable to Comprehend OT Mail Processor Goals Shelter Goals Time Frame: Oct 12, 2021 Eating (QC): 3 Oral Hygiene (QC): 2 Upper Body Dressing (QC): 3 Additional Goals: 1-Demonstrate ADL Tasks, 2-Verbalize Understanding, 3- ImproveStrength/Melody 1=Demonstrate adherence to instructed precautions during ADL tasks. 2=Patient will verbalize/demonstrate understanding of assistive devices/modifications for ADL. 3=Patient will improve strength/tolerance for activity to enable patient to perform ADL's. OT Education/Plan Problem List/Assessment Assessment: Decreased Activ Tolerance, Decreased Safety Aware, Decreased UE St rength, Dependent Transfers, Impaired Bed Mobility, Impaired Cognition, Impaired Coordination, Impaired Funct Balance, Impaired I ADL's, Impaired Self-Care Skills Pt would benefit from short term skilled OT services in order to increase BUE Strength and activity tolerance, and to maximize LOF for discharge. Discharge Recommendations Plan/Recommendations: Continue POC Treatment Plan/Plan of Care Patient would benefit from OT for education, treatment and training to promote independence in ADL's, mobility, safety and/or upper extremity function for ADL's. Plan of Care: ADL Retraining, Functional Mobility, UE Funct Exercise/Act Treatment Duration: Oct 12, 2021 Frequency: 5 times per week Estimated Hrs Per Day: .25 hour per day Rehab Potential: Guarded Time/GCodes Start Time: 09:35 Stop Time: 09:47 Total Time Billed (hr/min): 12 Billed Treatment Time 1, TEODORO SCHAFER OT Oct 03, 2021 10:17
[2021-10-03] MEDS ORDERED: FUROSEMIDE 40 MG/4 ML INJ (LASIX) IVP ONE (15:00)
[2021-10-03] MEDS: ENOXAPARIN 40 MG/0.4 ML (LOVENOX) SYR SQ SCH (15:05)
--- NOTE | 2021-10-03 15:39 | Diagnostic Imaging Report ---
INDICATION: Hypoxia, anemia, urinary tract infection. TECHNIQUE: Single view chest at 1:58 PM. CORRELATION STUDY: 09/29/2021. FINDINGS: The heart size, mediastinal configuration, and pulmonary vascularity are within normal limits. Scattered patchy bilateral pulmonary infiltrate-like opacities are noted within both lung cobb, slightly greater on the right compared to the left and more pronounced at the lung bases. Small effusions are suspect. The previously described density in the medial right upper lung field appears generally stable given difference in technique. IMPRESSION: Development of prominent bilateral pulmonary infiltrate-like opacities, right greater than left, favoring multilobe pneumonia. Correlation with the patient's Covid status is recommended. Additionally, given identification of mass lesions on CT, lymphatic extension of neoplasm is also in the differential. Superimposed edema is not excluded. Dictated by: Dictated on workstation # [id number]
[2021-10-03] MEDS: TAMSULOSIN 0.4 MG (FLOMAX) CAP PO SCH (17:25)
[2021-10-03] MEDS: LATANOPROST 0.005% (XALATAN) OPHTH SOLN 2.5 ML OS SCH (21:11)
[2021-10-04 05:11] VITALS: BP 123/54
[2021-10-04] MEDS: PANTOPRAZOLE 40 MG (PROTONIX) TAB PO SCH (06:13)
[2021-10-04] MEDS: SUCRALFATE 1 GM (CARAFATE) TAB PO SCH ×2 (06:13→17:18)
[2021-10-04] MEDS: CEFEPIME 1,000 MG/SWFI 10 ML IV PUSH IV SCH ×6 (06:14→20:12)
[2021-10-04 06:27] LABS: HEMATOCRIT 29 % (40-54); MEAN CORPUSCULAR HEMOGLOBIN 29 pg (25-34); MEAN CORPUSCULAR HGB CONC 31 g/dL (32-36); MEAN CORPUSCULAR VOLUME 93 fL (80-99); PLATELET COUNT 251 10^3/uL (130-400); WHITE BLOOD COUNT 3.3 10^3/uL (4.3-11.0)
[2021-10-04 06:50] LABS: CALCIUM 8.4 MG/DL (8.5-10.1); CREATININE SERUM 0.76 MG/DL (0.60-1.30); POTASSIUM 3.9 MMOL/L (3.6-5.0)
--- NOTE | 2021-10-04 07:43 | Diagnostic Imaging Report ---
History: Fever and hypoxia TECHNIQUE: Frontal view of the chest COMPARISON: 10/03/2021 FINDINGS: Patchy airspace opacities are seen throughout the lungs bilaterally, with diffuse interstitial opacities. There is no pleural effusion or pneumothorax. The cardiac silhouette is normal in size. IMPRESSION: 1. Diffuse interstitial opacities with patchy bilateral airspace opacities. This may be due to edema or infection. Aeration appears similar to the prior exam. Dictated by: Dictated on workstation # [id number]
[2021-10-04 07:58] VITALS: BP 132/60
[2021-10-04] MEDS ORDERED: FUROSEMIDE 40 MG/4 ML INJ (LASIX) IVP ONE (08:45)
[2021-10-04] MEDS: ASPIRIN 81 MG CHEW (CHILDREN'S ASA) PO SCH (09:08)
[2021-10-04] MEDS: OLANZapine 5 MG ODT (ZyPREXA ZYDIS) PO SCH (09:08)
[2021-10-04] MEDS: FINASTERIDE (PROSCAR) 5 MG TAB PO SCH (09:08)
[2021-10-04] MEDS: CLOPIDOGREL 75 MG (PLAVIX) TABLET PO SCH (09:08)
[2021-10-04] MEDS: MONTELUKAST 10 MG (SINGULAIR) TAB PO SCH (09:08)
[2021-10-04] MEDS: TIMOLOL MALEATE 0.5% 5 ML (TIMOPTIC) BTL OS SCH ×2 (09:09→22:08)
[2021-10-04] MEDS: ATENOLOL 50 MG (TENORMIN) TAB PO SCH (09:09)
[2021-10-04] MEDS: BRIMONIDINE 0.2% (ALPHAGAN) OPHTH SOLN 5 ML BTL OS SCH ×3 (09:09→22:08)
--- NOTE | 2021-10-04 10:18 | Progress Note - Hospitalist ---
Subjective HPI/CC On Admission Date Seen by Provider: Oct 04, 2021 Time Seen by Provider: 10:12 Sola Cunningham Jr is an 81 year old male with PMH HTN, HLD, T2DM, who presented with fevers. He was recently admitted in [place] due to UTI. He completed a course of antibiotics. His reported that he was very weak. He is slightly confused on my exam. He reports having fevers and chills. He denies chest pain and shortness of breath. He denies abdominal pain. He denies nausea and vomiting. He reports significant weight loss. He reports anorexia. He is a former smoker. Subjective/Events-last exam Rounded twice on patient. This morning still in bed prior to 's arrival and after when [facility] arrived. Seems somewhat weaker today but no specific complaints and actually made a joke when asked how he was feeling as he responded "with both of my hands." Discussed with and patient that due to multiple issues (infection, chronic UTIs, likely cancer, poor oral intake) that he will likely have a longer road of recovery ahead for him. Discussed CXR findings with them as well and improvement of oxygenation. They are still agreeable to plan for DC to SNF when able. I did go over code status and likely outcomes of a CODE BLUE on patient given new diagnosis of likely cancer and overall decline. At this time they would like him to remain full code. Objective Exam Vital Signs Vital Signs Date Time Temp Pulse Resp B/P (MAP) Pulse Ox O2 Delivery O2 Flow Rate FiO2 10/04/21 08:00 94 Nasal Cannula 3.50 10/04/21 07:58 36.8 69 22 132/60 (84) 10/03/21 07:27 21 Capillary Refill : Less Than 3 Seconds General Appearance: No Apparent Distress, Chronically ill Respiratory: No Accessory Muscle Use, Decreased Breath Sounds, Other (3lpm NC) Cardiovascular: Regular Rate, Rhythm, No Murmur Gastrointestinal: Normal Bowel Sounds, Non Tender, Soft Neurologic/Psychiatric: Alert, Oriented x3 Results/Procedures Lab Laboratory Tests 10/04/21 05:31 Patient resulted labs reviewed. Imaging: Reviewed Imaging Report Assessment/Plan Assessment and Plan Assess & Plan/Chief Complaint Sepsis due to UTI BPH UA consistent with UTI Urine culture growing citrobacter freundii, sensitive to cefepime- continue Finasteride Flomax Recurrent UTIs per , urology consulted Discussed with Dr Goncalves who recommended decreasing parameters for straight cath to 300cc, order placed Urology consult, appreciate assistance Lung mass- likely already metastatic cancer given lymphadenopathy- POA Weight loss CXR with right apical opacity CT Chest with right apical lung masses and lymphadenopathy Brain MRI negative for metastatic disease Discussed with Dr Moreau who will see in consultation Will need biopsy, when clinically improved Anemia Iron deficient, will transfuse iron prior to DC Debility PT/OT bibliographic services specialist consulted, appreciate recs Awaiting approval at [facility] DVT prophylaxis: Lovenox Diagnosis/Problems Diagnosis/Problems (1) Sepsis due to urinary tract infection Status: Acute (2) Mass of right lung Status: Acute (3) BPH (benign prostatic hyperplasia) Status: Acute Qualifiers: Lower urinary tract symptom presence: symptoms present Lower urinary tract symptom detail: incomplete bladder emptying Qualified Codes: N40.1 - Benign prostatic hyperplasia with lower urinary tract symptoms; R39.14 - Feeling of incomplete bladder emptying (4) Weight loss Status: Acute (5) Anemia Status: Acute Qualifiers: Anemia type: iron deficiency Iron deficiency anemia type: unspecified iron deficiency Qualified Codes: D50.9 - Iron deficiency anemia, unspecified (6) Generalized weakness Status: Acute DINA SOLANO MD Oct 04, 2021 10:18
--- NOTE | 2021-10-04 10:53 | Occ Therapy Progress Note ---
Therapy Progress Note Pt laying in bed sleeping, at bedside. Pt's requests for therapy to check back a different time as pt is sleeping. OT educated on purpose/benefit of OT, but she requests to allow pt to rest. OT will attempt again next available time per request. 1, visit 1045 TEODORO ECHEVERRIA OT Oct 04, 2021 10:53
--- NOTE | 2021-10-04 11:21 | Physical Therapy Progress Note ---
Therapy Progress Note PT has attempted x 3 to see patient this a.m. Spouse present with patient minimal responsive to verbal stimuli. He will occasionally respond, however, sleeps or does not open eyes. Last attempt, nursing was in assessing patient due to decrease SAO2 with O2 in place (patient was sleeping). Refer to nursing notes for their intervention. PT will attempt later today. ARIANNE THACKER PT Oct 04, 2021 11:21
[2021-10-04 11:40] VITALS: BP 112/57
[2021-10-04] MEDS: ENOXAPARIN 40 MG/0.4 ML (LOVENOX) SYR SQ SCH (14:48)
[2021-10-04] MEDS: TAMSULOSIN 0.4 MG (FLOMAX) CAP PO SCH (18:27)
[2021-10-04 20:00] VITALS: BP 109/47
[2021-10-04] MEDS: ACETAMINOPHEN 325 MG TABLET PO PRN (20:13)
[2021-10-04] MEDS: LATANOPROST 0.005% (XALATAN) OPHTH SOLN 2.5 ML OS SCH (22:08)
[2021-10-04 23:50] VITALS: BP 107/48
[2021-10-05] VITALS (8 sets, daily range): BP systolic 90–138; BP diastolic 40–66
[2021-10-05] MEDS: SUCRALFATE 1 GM (CARAFATE) TAB PO SCH ×2 (05:43→16:41)
[2021-10-05] MEDS: PANTOPRAZOLE 40 MG (PROTONIX) TAB PO SCH (05:43)
[2021-10-05] MEDS: CEFEPIME 1,000 MG/SWFI 10 ML IV PUSH IV SCH ×6 (05:43→22:52)
[2021-10-05 08:54] LABS: HEMATOCRIT 31 % (40-54); HEMOGLOBIN 9.7 g/dL (13.3-17.7); MEAN CORPUSCULAR HEMOGLOBIN 29 pg (25-34); MEAN CORPUSCULAR HGB CONC 31 g/dL (32-36); MEAN CORPUSCULAR VOLUME 94 fL (80-99); MEAN PLATELET VOLUME 9.8 fL (9.0-12.2); PLATELET COUNT 275 10^3/uL (130-400); WHITE BLOOD COUNT 6.1 10^3/uL (4.3-11.0)
[2021-10-05 09:12] LABS: CALCIUM 8.6 MG/DL (8.5-10.1); CREATININE SERUM 0.78 MG/DL (0.60-1.30); POTASSIUM 3.9 MMOL/L (3.6-5.0)
--- NOTE | 2021-10-05 09:21 | Occupational Ther Daily Note ---
OT Current Status-Daily Note Subjective Pt in bed, does not communicate much with therapist throughout session. When OT attempts to assist pt with ADLs, he uses his hands to push OT's hands away from him. Mental Status/Objective Patient Orientation: Person, Confused Attachments: Oxygen ADL-Treatment Therapy Code Descriptions/Definitions Functional [place] Measure: 0=Not Assessed/NA 4=Minimal Assistance 1=Total Assistance 5=Supervision or Setup 2=Maximal Assistance 6=Modified [place] 3=Moderate Assistance 7=Complete IndependenceSCALE: Activities may be completed with or without assistive devices. 9-Ytgruehwkf-xirhvoa completes the activity by him/herself with no assistance from a helper. 5-Set-up or Clean-up Assistance-helper sets up or cleans up; patient completes activity. [place] assists only prior to or following the activity. 4-Supervision or Touching Assistance-helper provides verbal cues and/or touching/steadying and/or contact guard assistance as patient completes activity. Assistance may be provided throughout the activity or intermittently. 3-Partial/Moderate Assistance-helper does LESS THAN HALF the effort. [place] lifts, holds or supports trunk or limbs, but provides less than half the effort. 2-Substantial/Maximal Assistance-helper does MORE THAN HALF the effort. [place] lifts or holds trunk or limbs and provides more than half the effort. 0-Jogrqikex-eaxksi does ALL the effort. Patient does none of the effort to complete the activity. Or, the assistance of 2 or more helpers is required for the patient to complete the activity. If activity was not attempted, code reason: 7-Patient Refused. 9-Not Applicable-not attempted and the patient did not perform the activity before the current illness, exacerbation or injury. 10-Not Attempted due to Environmental Limitations-(lack of equipment, weather restraints, etc.). 88-Not Attempted due to Medical Conditions or Safety Concerns. Eating (QC): 2 (Max A with eating, pt able to open mouth and drink part of coffee through straw. Per nursing staff report, assist to bring food to mouth.) Upper Body Dressing (QC): 2 (Max A with hospital gown.) Toileting Hygiene (QC): 1 (Per nursing staff report, dependent) Other Treatment Pt laying in bed, OT attempted to assist pt with finishing his breakfast, pt kept shaking his head "no" when offered food. OT provided pt with food on spoon to his lips, he would not open his mouth in order to eat, shaking his head again. OT offered coffee through straw, pt able to part his lips and get a drink of coffee through the straw when OT placed straw in pt's mouth and held cup. OT assisted pt with donning hospital gown, max A required overall. Pt lifted RUE up so OT can thread, pt unable to follow commands in order to thread LUE, when his hand went through the sleeve, he closed his hand around the gown. Assistance provided in order to pt to let go of the gown so it can be donned the rest of the way. OT placed blankets over pt, positioning him to comfort. Pt nodded head when asked if he just wanted to be left alone. OT turned on TV for pt. Post tx, pt in bed, call light in reach and all needs met. Education OT Patient Education: Correct positioning, Energy conservation, Modified ADL techniques, Progress toward Goal/Update tx plan, Purpose of tx/functional activities, Rehab process Teaching Recipient: Patient Teaching Methods: Demonstration, Discussion Response to Teaching: Unable to Return Demonstration, Unable to Comprehend OT Manager Of Recruiting Goals Senior Living Goals Time Frame: Oct 12, 2021 Eating (QC): 3 Oral Hygiene (QC): 2 Upper Body Dressing (QC): 3 Additional Goals: 1-Demonstrate ADL Tasks, 2-Verbalize Understanding, 3-ImproveStrength/Melody 1=Demonstrate adherence to instructed precautions during ADL tasks. 2=Patient will verbalize/demonstrate understanding of assistive devices/modifications for ADL. 3=Patient will improve strength/tolerance for activity to enable patient to perform ADL's. OT Education/Plan Problem List/Assessment Assessment: Decreased Activ Tolerance, Decreased Safety Aware, Decreased UE Strength, Impaired Bed Mobility, Impaired Cognition, Impaired Coordination, Impaired Funct Balance, Impaired I ADL's, Impaired Self-Care Skills, Restricted Funct UE ROM Pt would benefit from short term skilled OT services in order to increase BUE Strength and activity tolerance, and to maximize LOF for discharge. Discharge Recommendations Plan/Recommendations: Continue POC Treatment Plan/Plan of Care Patient would benefit from OT for education, treatment and training to promote independence in ADL's, mobility, safety and/or upper extremity function for ADL's. Plan of Care: ADL Retraining, Functional Mobility, UE Funct Exercise/Act Treatment Duration: Oct 12, 2021 Frequency: 5 times per week Estimated Hrs Per Day: .25 hour per day Rehab Potential: Guarded Time/GCodes Start Time: 08:58 Stop Time: 09:08 Total Time Billed (hr/min): 10 Billed Treatment Time 1. ADL TEODORO ECHEVERRIA OT Oct 05, 2021 09:21
[2021-10-05] MEDS: MONTELUKAST 10 MG (SINGULAIR) TAB PO SCH (09:46)
[2021-10-05] MEDS: ATENOLOL 50 MG (TENORMIN) TAB PO SCH (09:46)
[2021-10-05] MEDS: FINASTERIDE (PROSCAR) 5 MG TAB PO SCH (09:46)
[2021-10-05] MEDS: OLANZapine 5 MG ODT (ZyPREXA ZYDIS) PO SCH (09:46)
[2021-10-05] MEDS: BRIMONIDINE 0.2% (ALPHAGAN) OPHTH SOLN 5 ML BTL OS SCH ×3 (09:46→22:52)
[2021-10-05] MEDS: CLOPIDOGREL 75 MG (PLAVIX) TABLET PO SCH (09:46)
[2021-10-05] MEDS: ASPIRIN 81 MG CHEW (CHILDREN'S ASA) PO SCH (09:46)
[2021-10-05] MEDS: TIMOLOL MALEATE 0.5% 5 ML (TIMOPTIC) BTL OS SCH ×2 (09:47→22:52)
--- NOTE | 2021-10-05 09:57 | Physical Therapy Daily Note ---
PT Daily Note-Current Appearance Incontinent urine with total bed saturated. eyes closed but becomes agitated with lab being drawn and with changing and cleansing. Mental Status Patient Orientation: Confused Transfers SCALE: Activities may be completed with or without assistive devices. 4-Brsdfournr-zstbspi completes the activity by him/herself with no assistance from a helper. 5-Set-up or Clean-up Assistance-helper sets up or cleans up; patient completes activity. [place] assists only prior to or following the activity. 4-Supervision or Touching Assistance-helper provides verbal cues and/or touching/steadying and/or contact guard assistance as patient completes activity. Assistance may be provided throughout the activity or intermittently. 3-Partial/Moderate Assistance-helper does LESS THAN HALF the effort. [place] lifts, holds or supports trunk or limbs, but provides less than half the effort. 2-Substantial/Maximal Assistance-helper does MORE THAN HALF the effort. [place] lifts or holds trunk or limbs and provides more than half the effort. 7-Tdsquqcax-htwwgp does ALL the effort. Patient does none of the effort to complete the activity. Or, the assistance of 2 or more helpers is required for the patient to complete the activity. If activity was not attempted, code reason: 7-Patient Refused. 9-Not Applicable-not attempted and the patient did not perform the activity before the current illness, exacerbation or injury. 10-Not Attempted due to Environmental Limitations-(lack of equipment, weather restraints, etc.). 88-Not Attempted due to Medical Conditions or Safety Concerns. Roll Left & Right (QC): 1 (x 2 with resistance due to confusion and agitation) Weight Bearing Right Lower Extremity: Right Weight Bearing/Tolerated Left Lower Extremity: Left Weight Bearing/Tolerated Assessment Not safe for OOB activity due to confusion/agitation. Patient remains in bed with alarm activated and OT in to assist with feeding. PT Senior Care Goals Labor Mediator Goals PT Labor Mediator Goals Time Frame: Oct 20, 2021 Roll Left & Right (QC): 5 Sit to Lying (QC): 5 Lying-Sitting on Side/Bed(QC): 5 Sit to Stand (QC): 5 Chair/Rpo-cm-Qklmb Xfer(QC): 5 Toilet Transfer (QC): 5 Walk 10 feet (QC): 5 Walk 50ft with 2 Turns (QC): 5 Walk 150 ft (QC): 5 PT Plan Treatment/Plan Treatment Plan: Modify Plan, see comments Treatment Plan: Bed Mobility, Education, Functional Activity [place]ody, Functional Strength, Gait, Safety, Therapeutic Exercise, Transfers Frequency change to 5/wk due to patient's inability to actively participate with skilled therapy. Treatment Duration: Oct 20, 2021 Frequency: 5 times per week Estimated Hrs Per Day: .25 hour per day Patient and/or Family Agrees t: Yes Time/GCodes Time In: 831 Time Out: 858 Total Billed Treatment Time: 27 Total Billed Treatment 1 visit FA x 2 27 min ARIANNE THACKER PT Oct 05, 2021 09:57
[2021-10-05] MEDS: ACETAMINOPHEN 325 MG TABLET PO PRN (10:15)
[2021-10-05] MEDS: RT-ALBUTEROL HFA 8.5 GM INHALER IH SCH ×3 (10:34→19:03)
--- NOTE | 2021-10-05 12:19 | Progress Note - Hospitalist ---
Subjective HPI/CC On Admission Date Seen by Provider: Oct 05, 2021 Time Seen by Provider: 10:30 Sola Cunningham Jr is an 81 year old male with PMH HTN, HLD, T2DM, who presented with fevers. He was recently admitted in [place] due to UTI. He completed a course of antibiotics. His reported that he was very weak. He is slightly confused on my exam. He reports having fevers and chills. He denies chest pain and shortness of breath. He denies abdominal pain. He denies nausea and vomiting. He reports significant weight loss. He reports anorexia. He is a former smoker. Subjective/Events-last exam Pt reports feling about the same as [place]. More alert than yesterday morning. Discussed COVID results and incidental findings of positive status. confirmatory test pending. Also called and updated of plan. Objective Exam Vital Signs Vital Signs Date Time Temp Pulse Resp B/P (MAP) Pulse Ox O2 Delivery O2 Flow Rate FiO2 10/05/21 11:00 37.8 10/05/21 10:35 97 High Flow N/C 3.00 10/05/21 09:15 77 40 10/05/21 08:00 20 122/60 (80) Capillary Refill : Less Than 3 Seconds General Appearance: No Apparent Distress, Chronically ill, Thin Respiratory: Lungs Clear, No Accessory Muscle Use Cardiovascular: Regular Rate, Rhythm, No Murmur Gastrointestinal: Normal Bowel Sounds, Non Tender, Soft Neurologic/Psychiatric: Alert, Other (oriented to person) Results/Procedures Lab Laboratory Tests 10/05/21 08:45 Patient resulted labs reviewed. Imaging: Reviewed Imaging Report Assessment/Plan Assessment and Plan Assess & Plan/Chief Complaint Sepsis due to UTI BPH UA consistent with UTI Urine culture growing citrobacter freundii, sensitive to cefepime- continue Finasteride Flomax Recurrent UTIs per , urology consulted Discussed with Dr Goncalves who recommended decreasing parameters for straight cath to 300cc, order placed Urology consult, appreciate assistance COVID Incidentally found when test prior to admission to [place] confirmatory test sent Did fever overnight so could be true positive s/p vaccine x2 Will start on decadron as a precautionary as is on oxygen Consider MAB if confirmatory test positive Lung mass- likely already metastatic cancer given lymphadenopathy- POA Weight loss CXR with right apical opacity CT Chest with right apical lung masses and lymphadenopathy Brain MRI negative for metastatic disease Discussed with Dr Moreau who will see in consultation Will need biopsy, when clinically improved Anemia Iron deficient, will transfuse iron prior to DC Debility PT/OT guest services manager consulted, appreciate recs received auth at [facility] Will be here over the weekend though waiting on COVID results though DVT prophylaxis: Lovenox Diagnosis/Problems Diagnosis/Problems (1) Sepsis due to urinary tract infection Status: Acute (2) Mass of right lung Status: Acute (3) BPH (benign prostatic hyperplasia) Status: Acute Qualifiers: Lower urinary tract symptom presence: symptoms present Lower urinary tract symptom detail: incomplete bladder emptying Qualified Codes: N40.1 - Benign prostatic hyperplasia with lower urinary tract symptoms; R39.14 - Feeling of incomplete bladder emptying (4) Weight loss Status: Acute (5) Anemia Status: Acute Qualifiers: Anemia type: iron deficiency Iron deficiency anemia type: unspecified iron deficiency Qualified Codes: D50.9 - Iron deficiency anemia, unspecified (6) Generalized weakness Status: Acute DINA SOLANO MD Oct 05, 2021 12:19
[2021-10-05] MEDS: NS IV 1000 ML 1,000 ML IV SCH ×2 (12:49→22:53)
[2021-10-05] MEDS: dexAMETHasone 6 MG TAB (DECADRON) PO SCH (12:49)
[2021-10-05] MEDS: ENOXAPARIN 40 MG/0.4 ML (LOVENOX) SYR SQ SCH (13:20)
[2021-10-05] MEDS: TAMSULOSIN 0.4 MG (FLOMAX) CAP PO SCH (18:21)
[2021-10-05] MEDS: LATANOPROST 0.005% (XALATAN) OPHTH SOLN 2.5 ML OS SCH (22:00)
[2021-10-06 00:16] VITALS: BP 106/68
[2021-10-06] MEDS: RT-ALBUTEROL HFA 8.5 GM INHALER IH SCH ×4 (02:39→19:06)
[2021-10-06 04:00] VITALS: BP 112/63
[2021-10-06] MEDS: PANTOPRAZOLE 40 MG (PROTONIX) TAB PO SCH ×2 (06:42→07:57)
[2021-10-06] MEDS: dexAMETHasone 6 MG TAB (DECADRON) PO SCH ×2 (06:42→07:57)
[2021-10-06] MEDS: SUCRALFATE 1 GM (CARAFATE) TAB PO SCH ×3 (06:42→15:50)
[2021-10-06] MEDS: NS IV 1000 ML 1,000 ML IV SCH ×2 (07:52→23:25)
[2021-10-06] MEDS: CEFEPIME 1,000 MG/SWFI 10 ML IV PUSH IV SCH ×6 (07:53→21:24)
[2021-10-06 08:00] VITALS: BP 108/56
[2021-10-06 08:50] LABS: HEMATOCRIT 30 % (40-54); HEMOGLOBIN 9.2 g/dL (13.3-17.7); MEAN CORPUSCULAR HEMOGLOBIN 29 pg (25-34); MEAN CORPUSCULAR HGB CONC 31 g/dL (32-36); MEAN CORPUSCULAR VOLUME 95 fL (80-99); PLATELET COUNT 322 10^3/uL (130-400); WHITE BLOOD COUNT 5.7 10^3/uL (4.3-11.0)
[2021-10-06] MEDS: TIMOLOL MALEATE 0.5% 5 ML (TIMOPTIC) BTL OS SCH ×2 (09:00→21:02)
[2021-10-06] MEDS: BRIMONIDINE 0.2% (ALPHAGAN) OPHTH SOLN 5 ML BTL OS SCH ×3 (09:00→21:02)
[2021-10-06 09:06] LABS: CALCIUM 8.4 MG/DL (8.5-10.1); CREATININE SERUM 0.73 MG/DL (0.60-1.30); POTASSIUM 4.1 MMOL/L (3.6-5.0)
[2021-10-06] MEDS: ASPIRIN 81 MG CHEW (CHILDREN'S ASA) PO SCH (09:07)
[2021-10-06] MEDS: OLANZapine 5 MG ODT (ZyPREXA ZYDIS) PO SCH (09:07)
[2021-10-06] MEDS: FINASTERIDE (PROSCAR) 5 MG TAB PO SCH (09:07)
[2021-10-06] MEDS: MONTELUKAST 10 MG (SINGULAIR) TAB PO SCH (09:07)
[2021-10-06] MEDS: CLOPIDOGREL 75 MG (PLAVIX) TABLET PO SCH (09:07)
[2021-10-06] MEDS ORDERED: HALOPERIDOL 0.5 MG (HALDOL) TAB PO PRN (09:45)
[2021-10-06 12:00] VITALS: BP 108/56
--- NOTE | 2021-10-06 12:33 | Progress Note - Hospitalist ---
Subjective HPI/CC On Admission Date Seen by Provider: Oct 06, 2021 Time Seen by Provider: 12:29 Sola Cunningham Jr is an 81 year old male with PMH HTN, HLD, T2DM, who presented with fevers. He was recently admitted in [place] due to UTI. He completed a course of antibiotics. His reported that he was very weak. He is slightly confused on my exam. He reports having fevers and chills. He denies chest pain and shortness of breath. He denies abdominal pain. He denies nausea and vomiting. He reports significant weight loss. He reports anorexia. He is a former smoker. Subjective/Events-last exam Pt more agitated this AM. trying to climb out of bed without support. Required one dose of haldol and did better with this. Took oxygen off and satting 87% on room air. Replaced at 3lpm. Discussed with his regarding confirmatory test being positive for COVID and use of MAB in the hospital as he is not hospit alized for COVID. Objective Exam Vital Signs Vital Signs Date Time Temp Pulse Resp B/P (MAP) Pulse Ox O2 Delivery O2 Flow Rate FiO2 10/06/21 08:00 35.4 62 20 108/56 (73) 93 Nasal Cannula 3.00 10/05/21 09:15 40 Capillary Refill : Less Than 3 Seconds General Appearance: No Apparent Distress, Chronically ill, Thin Respiratory: No Accessory Muscle Use, Decreased Breath Sounds, Other (3lpm NC) Cardiovascular: Regular Rate, Rhythm, No Murmur Gastrointestinal: Normal Bowel Sounds, Non Tender, Soft Neurologic/Psychiatric: Alert, Oriented x3 Results/Procedures Lab Laboratory Tests 10/06/21 08:40 Patient resulted labs reviewed. Imaging: Reviewed Imaging Report Assessment/Plan Assessment and Plan Assess & Plan/Chief Complaint Sepsis due to UTI BPH UA consistent with UTI Urine culture growing citrobacter freundii, sensitive to cefepime- continue Finasteride Flomax Recurrent UTIs per , urology consulted Discussed with Dr Goncalves who recommended decreasing parameters for straight cath to 300cc, order placed Urology consult, appreciate assistance COVID NOT ADMITTED FOR COVID Tested positive on 10/04 s/p vaccine x2 Discussed MAB with his and she agrees as he is not admitted for covid and does not have a worsening oxygen requirement Hard to distinguish exactly when symptoms started but likely 11/3 No further fevers overnight Lung mass- likely already metastatic cancer given lymphadenopathy- POA Weight loss CXR with right apical opacity CT Chest with right apical lung masses and lymphadenopathy Brain MRI negative for metastatic disease Discussed with Dr Moreau who will see in consultation Will need biopsy, when clinically improved Anemia Iron deficient, will transfuse iron prior to DC once doing better from infectious disease standpoint Debility PT/OT environmental services attendant consulted, appreciate recs received auth at [facility] but now COVID positive so will have to time DC for when he is clinically stable and they are willing to accept DVT prophylaxis: Lovenox Diagnosis/Problems Diagnosis/Problems (1) Sepsis due to urinary tract infection Status: Acute (2) Mass of right lung Status: Acute (3) BPH (benign prostatic hyperplasia) Status: Acute Qualifiers: Lower urinary tract symptom presence: symptoms present Lower urinary tract symptom detail: incomplete bladder emptying Qualified Codes: N40.1 - Benign prostatic hyperplasia with lower urinary tract symptoms; R39.14 - Feeling of incomplete bladder emptying (4) Weight loss Status: Acute (5) Anemia Status: Acute Qualifiers: Anemia type: iron deficiency Iron deficiency anemia type: unspecified iron deficiency Qualified Codes: D50.9 - Iron deficiency anemia, unspecified (6) Generalized weakness Status: Acute DINA SOLANO MD Oct 06, 2021 12:33
[2021-10-06] MEDS ORDERED: diphenhydrAMINE 50 MG/ML INJ (BENADRYL) IV PRN (14:00)
[2021-10-06] MEDS ORDERED: ACETAMINOPHEN 500 MG TAB (TYLENOL) PO PRN (14:00)
[2021-10-06] MEDS ORDERED: CASIRIVIMAB/IMDEVIMAB 1,200 MG in NS (IVPB) 250 ML IV ONE (14:00)
[2021-10-06] MEDS ORDERED: ONDANSETRON 4 MG/2 ML (SDV) Z0FRAN IV PRN (14:00)
[2021-10-06] MEDS ORDERED: EPINEPHrine INJECTION 1 MG/ML AMP IM PRN (14:00)
[2021-10-06] MEDS: ENOXAPARIN 40 MG/0.4 ML (LOVENOX) SYR SQ SCH (14:35)
[2021-10-06] MEDS: LORazepam 0.5 MG (ATIVAN) TABLET PO PRN ×2 (14:35→15:50)
[2021-10-06] MEDS: TAMSULOSIN 0.4 MG (FLOMAX) CAP PO SCH (17:50)
[2021-10-06 19:13] VITALS: BP 110/58
[2021-10-06] MEDS: LATANOPROST 0.005% (XALATAN) OPHTH SOLN 2.5 ML OS SCH (21:03)
[2021-10-06 23:27] VITALS: BP 116/70
[2021-10-07] MEDS: RT-ALBUTEROL HFA 8.5 GM INHALER IH SCH ×4 (02:30→21:56)
[2021-10-07] MEDS: LORazepam 0.5 MG (ATIVAN) TABLET PO PRN ×2 (03:09→10:32)
[2021-10-07] MEDS: NS IV 1000 ML 1,000 ML IV SCH ×3 (05:13→17:16)
[2021-10-07] MEDS: CEFEPIME 1,000 MG/SWFI 10 ML IV PUSH IV SCH ×6 (06:01→21:11)
[2021-10-07] MEDS: dexAMETHasone 6 MG TAB (DECADRON) PO SCH (06:24)
[2021-10-07] MEDS: SUCRALFATE 1 GM (CARAFATE) TAB PO SCH ×2 (06:24→16:46)
[2021-10-07] MEDS: PANTOPRAZOLE 40 MG (PROTONIX) TAB PO SCH (06:24)
[2021-10-07 06:55] VITALS: BP 126/58
[2021-10-07] MEDS: CLOPIDOGREL 75 MG (PLAVIX) TABLET PO SCH (08:45)
[2021-10-07] MEDS: ASPIRIN 81 MG CHEW (CHILDREN'S ASA) PO SCH (08:45)
[2021-10-07] MEDS: OLANZapine 5 MG ODT (ZyPREXA ZYDIS) PO SCH (08:45)
[2021-10-07] MEDS: FINASTERIDE (PROSCAR) 5 MG TAB PO SCH (08:46)
[2021-10-07] MEDS: MONTELUKAST 10 MG (SINGULAIR) TAB PO SCH (08:46)
[2021-10-07] MEDS: TIMOLOL MALEATE 0.5% 5 ML (TIMOPTIC) BTL OS SCH ×2 (09:00→20:51)
[2021-10-07] MEDS: BRIMONIDINE 0.2% (ALPHAGAN) OPHTH SOLN 5 ML BTL OS SCH ×3 (09:00→20:51)
--- NOTE | 2021-10-07 10:13 | Progress Note - Hospitalist ---
Subjective HPI/CC On Admission Date Seen by Provider: Oct 07, 2021 Time Seen by Provider: 10:10 Sola Cunningham Jr is an 81 year old male with PMH HTN, HLD, T2DM, who presented with fevers. He was recently admitted in [place] due to UTI. He completed a course of antibiotics. His reported that he was very weak. He is slightly confused on my exam. He reports having fevers and chills. He denies chest pain and shortness of breath. He denies abdominal pain. He denies nausea and vomiting. He reports significant weight loss. He reports anorexia. He is a former smoker. Subjective/Events-last exam Pt is laying in bed. No complaints,. Actually says "good" when asked how he is doing but otherwise just mumbles. RT at bedside to place on oximask to see if he will be more compliant with wearing it. Objective Exam Vital Signs Vital Signs Date Time Temp Pulse Resp B/P (MAP) Pulse Ox O2 Delivery O2 Flow Rate FiO2 10/07/21 08:00 93 High Flow N/C 3.00 10/07/21 06:55 36.6 62 22 126/58 (80) 10/05/21 09:15 40 Capillary Refill : Less Than 3 Seconds General Appearance: No Apparent Distress, Chronically ill, Thin Respiratory: Lungs Clear, No Accessory Muscle Use, Other (on 3lpm oxi mask) Cardiovascular: Regular Rate, Rhythm, No Murmur Gastrointestinal: Normal Bowel Sounds, Non Tender, Soft Results/Procedures Lab Patient resulted labs reviewed. Imaging: Reviewed Imaging Report Assessment/Plan Assessment and Plan Assess & Plan/Chief Complaint Sepsis due to UTI BPH UA consistent with UTI Urine culture growing citrobacter freundii, sensitive to cefepime- continue Finasteride Flomax Recurrent UTIs per , urology consulted COVID NOT ADMITTED FOR COVID Tested positive on 10/04 s/p vaccine x2 s/p MAB 10/06 Hard to distinguish exactly when symptoms started but likely 10/03 with increased cough so will confer with infection control nurse to discuss when he can come out of isolation No further fevers since 10/05 Lung mass- likely already metastatic cancer given lymphadenopathy- POA Weight loss CXR with right apical opacity CT Chest with right apical lung masses and lymphadenopathy Brain MRI negative for metastatic disease Discussed with Dr Moreau who will see in consultation Will need biopsy, when clinically improved Anemia Iron deficient, will transfuse iron prior to DC once doing better from infect ious disease standpoint Debility PT/OT therapeutic activities services worker consulted, appreciate recs received auth at [facility] but now COVID positive so will have to time DC for when he is clinically stable and they are willing to accept DVT prophylaxis: Lovenox Diagnosis/Problems Diagnosis/Problems (1) Sepsis due to urinary tract infection Status: Acute (2) Mass of right lung Status: Acute (3) BPH (benign prostatic hyperplasia) Status: Acute Qualifiers: Lower urinary tract symptom presence: symptoms present Lower urinary tract symptom detail: incomplete bladder emptying Qualified Codes: N40.1 - Benign prostatic hyperplasia with lower urinary tract symptoms; R39.14 - Feeling of incomplete bladder emptying (4) Weight loss Status: Acute (5) Anemia Status: Acute Qualifiers: Anemia type: iron deficiency Iron deficiency anemia type: unspecified iron deficiency Qualified Codes: D50.9 - Iron deficiency anemia, unspecified (6) Generalized weakness Status: Acute DINA SOLANO MD Oct 07, 2021 10:13
[2021-10-07] MEDS: ENOXAPARIN 40 MG/0.4 ML (LOVENOX) SYR SQ SCH (14:15)
[2021-10-07 16:28] VITALS: BP 135/65
[2021-10-07] MEDS: TAMSULOSIN 0.4 MG (FLOMAX) CAP PO SCH (17:16)
[2021-10-07] MEDS: LATANOPROST 0.005% (XALATAN) OPHTH SOLN 2.5 ML OS SCH (20:51)
[2021-10-07 23:26] VITALS: BP 151/71
[2021-10-08] MEDS: LORazepam 0.5 MG (ATIVAN) TABLET PO PRN ×3 (00:35→21:37)
[2021-10-08 01:20] LABS: ABG BASE EXCESS -0.9 MMOL/L (-2.5-2.5); ABG OXYGEN SATURATION 91 % (94-100); ABG PCO2 39 MMHG (35-45); ABG PH 7.39 (7.37-7.43); ABG PO2 64 MMHG (79-93); ABG TCO2 24.8 MMOL/L (21.0-31.0)
[2021-10-08 01:21] LABS: ALLENS TEST YES-POS; INSPIRED O2 8L; VENTILATOR NO
[2021-10-08] MEDS: RT-ALBUTEROL HFA 8.5 GM INHALER IH SCH ×4 (02:00→22:00)
[2021-10-08] MEDS: CEFEPIME 1,000 MG/SWFI 10 ML IV PUSH IV SCH ×2 (05:59)
[2021-10-08] MEDS: dexAMETHasone 6 MG TAB (DECADRON) PO SCH (05:59)
[2021-10-08] MEDS: PANTOPRAZOLE 40 MG (PROTONIX) TAB PO SCH (05:59)
[2021-10-08] MEDS: SUCRALFATE 1 GM (CARAFATE) TAB PO SCH ×2 (05:59→15:55)
[2021-10-08 08:00] VITALS: BP 167/80
--- NOTE | 2021-10-08 08:31 | Occupational Ther Daily Note ---
OT Current Status-Daily Note Subjective Pt laying in bed, live sitter present. Pt responded minimally throughout session, would not open his eyes. Mental Status/Objective Patient Orientation: Confused, Listless Attachments: Oxygen (oxymask) ADL-Treatment Therapy Code Descriptions/Definitions Functional [place] Measure: 0=Not Assessed/NA 4=Minimal Assistance 1=Total Assistance 5=Supervision or Setup 2=Maximal Assistance 6=Modified [place] 3=Moderate Assistance 7=Complete IndependenceSCALE: Activities may be completed with or without assistive devices. 3-Fcofmsmndo-wdpzdte completes the activity by him/herself with no assistance from a helper. 5-Set-up or Clean-up Assistance-helper sets up or cleans up; patient completes activity. [place] assists only prior to or following the activity. 4-Supervision or Touching Assistance-helper provides verbal cues and/or touching/steadying and/or contact guard assistance as patient completes activity. Assistance may be provided throughout the activity or intermittently. 3-Partial/Moderate Assistance-helper does LESS THAN HALF the effort. [place] lifts, holds or supports trunk or limbs, but provides less than half the effort. 2-Substantial/Maximal Assistance-helper does MORE THAN HALF the effort. [place] lifts or holds trunk or limbs and provides more than half the effort. 2-Gtdyjeeah-hrnwwh does ALL the effort. Patient does none of the effort to complete the activity. Or, the assistance of 2 or more helpers is required for the patient to complete the activity. If activity was not attempted, code reason: 7-Patient Refused. 9-Not Applicable-not attempted and the patient did not perform the activity before the current illness, exacerbation or injury. 10-Not Attempted due to Environmental Limitations-(lack of equipment, weather restraints, etc.). 88-Not Attempted due to Medical Conditions or Safety Concerns. Oral Hygiene (QC): 1 (Pt required total assistance to clean mouth using oral swab) Lower Body Dressing (QC): 1 (total assistance per nursing staff due to incontin ence. ) Toileting Hygiene (QC): 1 (total assist per nursing staff due to incontinence) Other Treatment Pt laying in bed, responded minimally throughout session. Rarely mumbled words. nursing staff indicate LE clothing just changed due to incontinence, total assistance with LBD and toileting. In order to increase BUE strength and activity tolerance, UE exercises attempted. Pt would not follow instructions for UE exercises, AAROM attempted but pt resistive to movements. x10 reps BUE shoulder flexion completed PROM. OT then attempted passive elbow range, pt resistive and OT unable to perform ROM. OT then provided pt with an oral sponge to brush his gums. Pt did not close hand around the swab, OT attempted hand over hand assist for oral care, pt again resistive to movements. OT dependently performed oral care for pt. Post tx, pt in bed, call light in reach and all needs met, bed alarm on and live sitter present. Education OT Patient Education: Correct positioning, Modified ADL techniques, Progress toward Goal/Update tx plan, Purpose of tx/functional activities, Rehab process Teaching Recipient: Patient Teaching Methods: Discussion Response to Teaching: Verbalize Understanding OT Cycle Counter Goals Cycle Counter Goals Time Frame: Oct 12, 2021 Eating (QC): 3 Oral Hygiene (QC): 2 Upper Body Dressing (QC): 3 Additional Goals: 1-Demonstrate ADL Tasks, 2-Verbalize Understanding, 3- ImproveStrength/Melody 1=Demonstrate adherence to instructed precautions during ADL tasks. 2=Patient will verbalize/demonstrate understanding of assistive devices/modifications for ADL. 3=Patient will improve strength/tolerance for activity to enable patient to perform ADL's. OT Education/Plan Problem List/Assessment Assessment: Decreased Activ Tolerance, Decreased Safety Aware, Decreased UE Strength, Dependent Transfers, Impaired Bed Mobility, Impaired Cognition, Impaired Coordination, Impaired Funct Balance, Impaired I ADL's, Impaired Self- Care Skills, Restricted Funct UE ROM Pt would benefit from short term skilled OT services in order to increase BUE Strength and activity tolerance, and to maximize LOF for discharge. Discharge Recommendations Plan/Recommendations: Continue POC Treatment Plan/Plan of Care Patient would benefit from OT for education, treatment and training to promote independence in ADL's, mobility, safety and/or upper extremity function for ADL's. Plan of Care: ADL Retraining, Functional Mobility, UE Funct Exercise/Act Treatment Duration: Oct 12, 2021 Frequency: 5 times per week Estimated Hrs Per Day: .25 hour per day Rehab Potential: Guarded Time/GCodes Start Time: 08:13 Stop Time: 08:25 Total Time Billed (hr/min): 12 Billed Treatment Time 1, EX TEODORO ECHEVERRIA OT Oct 08, 2021 08:31
[2021-10-08] MEDS: BRIMONIDINE 0.2% (ALPHAGAN) OPHTH SOLN 5 ML BTL OS SCH ×3 (08:48→21:35)
[2021-10-08] MEDS: TIMOLOL MALEATE 0.5% 5 ML (TIMOPTIC) BTL OS SCH ×2 (08:48→21:34)
[2021-10-08] MEDS: FINASTERIDE (PROSCAR) 5 MG TAB PO SCH (08:49)
[2021-10-08] MEDS: CLOPIDOGREL 75 MG (PLAVIX) TABLET PO SCH (08:49)
[2021-10-08] MEDS: MONTELUKAST 10 MG (SINGULAIR) TAB PO SCH (08:49)
[2021-10-08] MEDS: ASPIRIN 81 MG CHEW (CHILDREN'S ASA) PO SCH (08:49)
[2021-10-08] MEDS: OLANZapine 5 MG ODT (ZyPREXA ZYDIS) PO SCH (08:49)
[2021-10-08] MEDS: NS IV 1000 ML 1,000 ML IV SCH (10:23)
--- NOTE | 2021-10-08 10:56 | Physical Therapy Daily Note ---
PT Daily Note-Current Subjective Patient in bed pre tx, confused and trying to get out of bed, patient has urinated all over the bed and himself, he also continually takes his O2 mask off. Appearance Patient in bed post tx with nurse call, bed alarm on, Mental Status Patient Orientation: Confused Transfers SCALE: Activities may be completed with or without assistive devices. 6-Gdqtbycsxf-yclttje completes the activity by him/herself with no assistance from a helper. 5-Set-up or Clean-up Assistance-helper sets up or cleans up; patient completes activity. [place] assists only prior to or following the activity. 4-Supervision or Touching Assistance-helper provides verbal cues and/or touching/steadying and/or contact guard assistance as patient completes activit y. Assistance may be provided throughout the activity or intermittently. 3-Partial/Moderate Assistance-helper does LESS THAN HALF the effort. [place] lifts, holds or supports trunk or limbs, but provides less than half the effort. 2-Substantial/Maximal Assistance-helper does MORE THAN HALF the effort. [place] lifts or holds trunk or limbs and provides more than half the effort. 8-Hobtnngka-chhgla does ALL the effort. Patient does none of the effort to complete the activity. Or, the assistance of 2 or more helpers is required for the patient to complete the activity. If activity was not attempted, code reason: 7-Patient Refused. 9-Not Applicable-not attempted and the patient did not perform the activity before the current illness, exacerbation or injury. 10-Not Attempted due to Environmental Limitations-(lack of equipment, weather restraints, etc.). 88-Not Attempted due to Medical Conditions or Safety Concerns. Roll Left & Right (QC): 2 Patient resists rolling to clean and change sheets, nurse aide assists. He does try to flip out of bed before nurse aide gets into room and has to be blocked from doing so. Weight Bearing Right Lower Extremity: Right Weight Bearing/Tolerated Left Lower Extremity: Left Weight Bearing/Tolerated Treatments rolling, cleaning, changing brief Assessment Current Status: Poor Progress Patient's O2 drops to 80% during tx, patient will not keep his O2 mask on, nurse is aware of this. PT Halfway Goals Halfway Goals PT Halfway Goals Time Frame: Oct 20, 2021 Roll Left & Right (QC): 5 Sit to Lying (QC): 5 Lying-Sitting on Side/Bed(QC): 5 Sit to Stand (QC): 5 Chair/Fts-fv-Bgdzg Xfer(QC): 5 Toilet Transfer (QC): 5 Walk 10 feet (QC): 5 Walk 50ft with 2 Turns (QC): 5 Walk 150 ft (QC): 5 PT Plan Problem List Problem List: Activity Tolerance, Functional Strength, Safety, Balance, Gait, Transfer, Bed Mobility, ROM Treatment/Plan Treatment Plan: Continue Plan of Care Treatment Plan: Bed Mobility, Education, Functional Activity Melody, Functional Strength, Gait, Safety, Therapeutic Exercise, Transfers Treatment Duration: Oct 20, 2021 Frequency: 5 times per week Estimated Hrs Per Day: .25 hour per day Patient and/or Family Agrees t: Yes Safety Risks/Education Patient Education: Correct Positioning, Safety Issues Teaching Recipient: Patient Teaching Methods: Demonstration, Discussion Response to Teaching: Reinforcement Needed Time/GCodes Time In: 1020 Time Out: 1034 Total Billed Treatment Time: 14 Total Billed Treatment 1 visit FA Nash' MICHAEL FARR PT Oct 08, 2021 10:56
--- NOTE | 2021-10-08 12:34 | Progress Note - Hospitalist ---
Subjective HPI/CC On Admission Date Seen by Provider: Oct 08, 2021 Time Seen by Provider: 12:28 Sola Cunningham Jr is an 81 year old male with PMH HTN, HLD, T2DM, who presented with fevers. He was recently admitted in [place] due to UTI. He completed a course of antibiotics. His reported that he was very weak. He is slightly confused on my exam. He reports having fevers and chills. He denies chest pain and shortness of breath. He denies abdominal pain. He denies nausea and vomiting. He reports significant weight loss. He reports anorexia. He is a former smoker. Subjective/Events-last exam Pt agitated overnight and took oxi-mask off. Responded well to ativan though and now on 4lpm. Laying in bed and sitter at bedside checking blood sugar. Objective Exam Vital Signs Vital Signs Date Time Temp Pulse Resp B/P (MAP) Pulse Ox O2 Delivery O2 Flow Rate FiO2 10/08/21 08:00 93 OxyMask 5.00 10/08/21 08:00 35.6 70 22 167/80 (109) 10/05/21 09:15 40 Capillary Refill : Less Than 3 Seconds General Appearance: No Apparent Distress, WD/WN Respiratory: No Accessory Muscle Use, Decreased Breath Sounds, Other (oxi-mask 4lpm) Cardiovascular: Regular Rate, Rhythm, No Murmur Gastrointestinal: Normal Bowel Sounds, Soft Neurologic/Psychiatric: Alert, Other (oriented to person) Results/Procedures Lab Patient resulted labs reviewed. Imaging: Reviewed Imaging Report Assessment/Plan Assessment and Plan Assess & Plan/Chief Complaint Sepsis due to UTI BPH UA consistent with UTI Urine culture growing citrobacter freundii, sensitive to cefepime- continue Finasteride Flomax Recurrent UTIs per , urology consulted COVID NOT ADMITTED FOR COVID Tested positive on 10/04 s/p vaccine x2 s/p MAB 10/06 Hard to distinguish exactly when symptoms started but likely 10/03 with increased cough so will confer with infection control nurse to discuss when he can come out of isolation No further fevers since 10/05 Relatively stable on oxygen level and only needs increase when he takes oxygen off Lung mass- likely already metastatic cancer given lymphadenopathy- POA Weight loss CXR with right apical opacity CT Chest with right apical lung masses and lymphadenopathy Brain MRI negative for metastatic disease Discussed with Dr Prieto who will see in consultation Will need biopsy, when clinically improved Anemia Iron deficient, will transfuse iron prior to DC once doing better from infectious disease standpoint Debility PT/OT volunteer services coordinator consulted, appreciate recs received auth at [facility] but now COVID positive so will have to time DC for when he is clinically stable and they are willing to accept DVT prophylaxis: Lovenox Diagnosis/Problems Diagnosis/Problems (1) Sepsis due to urinary tract infection Status: Acute (2) Mass of right lung Status: Acute (3) BPH (benign prostatic hyperplasia) Status: Acute Qualifiers: Lower urinary tract symptom presence: symptoms present Lower urinary tract symptom detail: incomplete bladder emptying Qualified Codes: N40.1 - Benign prostatic hyperplasia with lower urinary tract symptoms; R39.14 - Feeling of incomplete bladder emptying (4) Weight loss Status: Acute (5) Anemia Status: Acute Qualifiers: Anemia type: iron deficiency Iron deficiency anemia type: unspecified iron deficiency Qualified Codes: D50.9 - Iron deficiency anemia, unspecified (6) Generalized weakness Status: Acute DINA SOLANO MD Oct 08, 2021 12:34
[2021-10-08] MEDS: ENOXAPARIN 40 MG/0.4 ML (LOVENOX) SYR SQ SCH (13:22)
[2021-10-08 15:13] VITALS: BP 150/70
[2021-10-08] MEDS: TAMSULOSIN 0.4 MG (FLOMAX) CAP PO SCH (19:19)
[2021-10-08] MEDS: LATANOPROST 0.005% (XALATAN) OPHTH SOLN 2.5 ML OS SCH (22:41)
[2021-10-08 23:08] VITALS: BP 160/67
[2021-10-09] MEDS: RT-ALBUTEROL HFA 8.5 GM INHALER IH SCH ×3 (02:45→16:41)
[2021-10-09 03:42] VITALS: BP 174/65
[2021-10-09] MEDS: PANTOPRAZOLE 40 MG (PROTONIX) TAB PO SCH ×2 (06:48→11:21)
[2021-10-09] MEDS: SUCRALFATE 1 GM (CARAFATE) TAB PO SCH ×2 (06:48→16:00)
[2021-10-09 07:12] VITALS: BP 169/67
[2021-10-09 07:15] LABS: BASOPHILS % (AUTO) 0 % (0-10); EOSINOPHILS % (AUTO) 0 % (0-10); HEMATOCRIT 32 % (40-54); HEMOGLOBIN 9.8 g/dL (13.3-17.7); LYMPHOCYTES # (AUTO) 1.6 10^3/uL (1.0-4.0); LYMPHOCYTES % (AUTO) 17 % (12-44); MEAN CORPUSCULAR HEMOGLOBIN 29 pg (25-34); MEAN CORPUSCULAR HGB CONC 31 g/dL (32-36); MEAN CORPUSCULAR VOLUME 94 fL (80-99); MEAN PLATELET VOLUME 9.7 fL (9.0-12.2); MONOCYTES # (AUTO) 0.4 10^3/uL (0.0-1.0); MONOCYTES % (AUTO) 5 % (0-12); NEUTROPHILS # (AUTO) 7.5 10^3/uL (1.8-7.8); NEUTROPHILS % (AUTO) 78 % (42-75); PLATELET COUNT 465 10^3/uL (130-400); WHITE BLOOD COUNT 9.6 10^3/uL (4.3-11.0)
--- NOTE | 2021-10-09 11:01 | Physical Therapy Progress Note ---
Therapy Progress Note Patient on hold today per nursing. Patient has had a decline and has palliative care ordered. Will check back tomorrow. MICHAEL FARR PT Oct 09, 2021 11:01
[2021-10-09] MEDS: OLANZapine 5 MG ODT (ZyPREXA ZYDIS) PO SCH (11:20)
[2021-10-09] MEDS: MONTELUKAST 10 MG (SINGULAIR) TAB PO SCH (11:21)
[2021-10-09] MEDS: CLOPIDOGREL 75 MG (PLAVIX) TABLET PO SCH (11:21)
[2021-10-09] MEDS: FINASTERIDE (PROSCAR) 5 MG TAB PO SCH (11:21)
[2021-10-09] MEDS: BRIMONIDINE 0.2% (ALPHAGAN) OPHTH SOLN 5 ML BTL OS SCH ×3 (11:22→22:22)
[2021-10-09] MEDS: TIMOLOL MALEATE 0.5% 5 ML (TIMOPTIC) BTL OS SCH ×2 (11:22→22:21)
[2021-10-09] MEDS: ASPIRIN 81 MG CHEW (CHILDREN'S ASA) PO SCH (11:22)
[2021-10-09] MEDS: dexAMETHasone 6 MG TAB (DECADRON) PO SCH (11:22)
--- NOTE | 2021-10-09 11:39 | Progress Note - Hospitalist ---
Subjective HPI/CC On Admission Date Seen by Provider: Oct 09, 2021 Time Seen by Provider: 10:00 Sola Cunningham Jr is an 81 year old male with PMH HTN, HLD, T2DM, who presented with fevers. He was recently admitted in [place] due to UTI. He completed a course of antibiotics. His reported that he was very weak. He is slightly confused on my exam. He reports having fevers and chills. He denies chest pain and shortness of breath. He denies abdominal pain. He denies nausea and vomiting. He reports significant weight loss. He reports anorexia. He is a former smoker. Subjective/Events-last exam Pt is laying in bed and getting yonathan care down after an episode of incontinence. More alert today than yesterday but agitated with care. Reports from nurse is that he had a rough night with bradycardia to the 30s. Unfortunately there is not documentation of events from overnight but clinically appears similar to yesterday. Objective Exam Vital Signs Vital Signs Date Time Temp Pulse Resp B/P (MAP) Pulse Ox O2 Delivery O2 Flow Rate FiO2 10/09/21 09:51 93 High Flow N/C 5.00 10/09/21 07:12 36.5 67 22 169/67 (101) 10/05/21 09:15 40 Capillary Refill : Less Than 3 Seconds General Appearance: No Apparent Distress, Chronically ill, Thin Respiratory: No Accessory Muscle Use, Decreased Breath Sounds, Other (on4lpm oxi mask) Cardiovascular: Regular Rate, Rhythm, No Murmur Gastrointestinal: Normal Bowel Sounds, Non Tender, Soft Neurologic/Psychiatric: Alert, Disoriented Results/Procedures Lab Laboratory Tests 10/09/21 06:26 Patient resulted labs reviewed. Imaging: Reviewed Imaging Report Assessment/Plan Assessment and Plan Assess & Plan/Chief Complaint Sepsis due to UTI BPH UA consistent with UTI Urine culture growing citrobacter freundii, sensitive to cefepime- completed course yesterday Finasteride Flomax Recurrent UTIs per , urology consulted COVID NOT ADMITTED FOR COVID Tested positive on 10/04 s/p vaccine x2 s/p MAB 10/06 Hard to distinguish exactly when symptoms started but likely 10/03 with increased cough and fever, hopefully will be able come out of isolation on 10/13 No further fevers since 10/05 Relatively stable on oxygen level and only needs increase when he takes oxygen off Report of rough night with bradycardia, discussed this with and readdressed code status, she is going to talk to family and is considering making him a DNR. We discussed natural course of COVID and that he is likely entering the stage where he will get worse. She expresses understanding. I then reached out to Agents' Records Clerk to offer emotional support to as well Lung mass- likely already metastatic cancer given lymphadenopathy- POA Weight loss CXR with right apical opacity CT Chest with right apical lung masses and lymphadenopathy Brain MRI negative for metastatic disease Dr Moreau consulted, appreciate recs Will need biopsy, when clinically improved Anemia Iron deficient, will transfuse iron prior to DC once doing better from infectious disease standpoint Debility PT/OT protective services social worker consulted, appreciate recs received auth at [facility] but now COVID positive so will have to time DC for when he is clinically stable and they are willing to accept DVT prophylaxis: Lovenox Diagnosis/Problems Diagnosis/Problems (1) Sepsis due to urinary tract infection Status: Acute (2) Mass of right lung Status: Acute (3) BPH (benign prostatic hyperplasia) Status: Acute Qualifiers: Lower urinary tract symptom presence: symptoms present Lower urinary tract symptom detail: incomplete bladder emptying Qualified Codes: N40.1 - Benign prostatic hyperplasia with lower urinary tract symptoms; R39.14 - Feeling of incomplete bladder emptying (4) Weight loss Status: Acute (5) Anemia Status: Acute Qualifiers: Anemia type: iron deficiency Iron deficiency anemia type: unspecified iron deficiency Qualified Codes: D50.9 - Iron deficiency anemia, unspecified (6) Generalized weakness Status: Acute DINA SOLANO MD Oct 09, 2021 11:39
--- NOTE | 2021-10-09 12:01 | Occ Therapy Progress Note ---
Therapy Progress Note OT tx attempted. Pt laying in bed with eyes closed. He would not open eyes or respond to therapist. OT attempted to assist with oral care, placing swab in pt's hand, he would not follow instructions to brush his gums. OT attempted hand over hand assistance, pt resistive to movement and would not move arm towards his mouth. OT then attempted to dependently brush his mouth, when swab touched pt's lips he would close his mouth, not allowing OT to complete oral care. OT then attempted PROM exercises, pt resistive to all movements and would not allow OT to perform movements. Pt unable to participate in skilled OT txs at this time, OT will attempt again tomorrow. 1, visit 1125 TEODORO ECHEVERRIA OT Oct 09, 2021 12:01
[2021-10-09] MEDS: ENOXAPARIN 40 MG/0.4 ML (LOVENOX) SYR SQ SCH (13:15)
[2021-10-09 16:00] VITALS: BP 130/76
[2021-10-09] MEDS: LORazepam INJ 2 MG/ML (ATIVAN) VIAL IVP PRN (17:40)
[2021-10-09] MEDS: TAMSULOSIN 0.4 MG (FLOMAX) CAP PO SCH (18:27)
[2021-10-09] MEDS: LATANOPROST 0.005% (XALATAN) OPHTH SOLN 2.5 ML OS SCH (22:49)
[2021-10-10 00:22] VITALS: BP 163/67
[2021-10-10] MEDS: LORazepam INJ 2 MG/ML (ATIVAN) VIAL IVP PRN ×2 (03:43→13:08)
[2021-10-10 08:25] VITALS: BP 171/73
[2021-10-10] MEDS: BRIMONIDINE 0.2% (ALPHAGAN) OPHTH SOLN 5 ML BTL OS SCH ×3 (09:03→20:40)
[2021-10-10] MEDS: SUCRALFATE 1 GM (CARAFATE) TAB PO SCH ×2 (09:03→16:50)
[2021-10-10] MEDS: dexAMETHasone 6 MG TAB (DECADRON) PO SCH (09:03)
[2021-10-10] MEDS: FINASTERIDE (PROSCAR) 5 MG TAB PO SCH (09:03)
[2021-10-10] MEDS: TIMOLOL MALEATE 0.5% 5 ML (TIMOPTIC) BTL OS SCH ×2 (09:03→20:40)
[2021-10-10] MEDS: OLANZapine 5 MG ODT (ZyPREXA ZYDIS) PO SCH (09:03)
[2021-10-10] MEDS: CLOPIDOGREL 75 MG (PLAVIX) TABLET PO SCH (09:13)
[2021-10-10] MEDS: ASPIRIN 81 MG CHEW (CHILDREN'S ASA) PO SCH (09:14)
[2021-10-10] MEDS: MONTELUKAST 10 MG (SINGULAIR) TAB PO SCH (09:14)
[2021-10-10] MEDS ORDERED: PANTOPRAZOLE 40 MG (PROTONIX) VIAL IV ONE (09:45)
--- NOTE | 2021-10-10 09:54 | Progress Note - Hospitalist ---
Subjective HPI/CC On Admission Date Seen by Provider: Oct 10, 2021 Time Seen by Provider: 09:44 Sola Cunningham Jr is an 81 year old male with PMH HTN, HLD, T2DM, who presented with fevers. He was recently admitted in [place] due to UTI. He completed a course of antibiotics. His reported that he was very weak. He is slightly confused on my exam. He reports having fevers and chills. He denies chest pain and shortness of breath. He denies abdominal pain. He denies nausea and vomiting. He reports significant weight loss. He reports anorexia. He is a former smoker. Subjective/Events-last exam Pt remains about the same. Currently nurse at bedside giving AM meds. I discussed with over phone his current prognosis. She states "if he doesn't have a chance we want comfort but if he can come through this we don't." We discussed the unpredictable nature of COVID and how he is just hitting the window where he may get worse. Ultimately decide to maintain DNR status given incredibly poor prognosis for COVID patients who progress to needing the ventilator but she would like to continue current treatment and see how he does. Objective Exam Vital Signs Vital Signs Date Time Temp Pulse Resp B/P (MAP) Pulse Ox O2 Delivery O2 Flow Rate FiO2 10/10/21 08:25 36.0 63 24 171/73 (105) 95 High Flow N/C 4.00 10/05/21 09:15 40 Capillary Refill : Less Than 3 Seconds General Appearance: Chronically ill, Thin Respiratory: No Accessory Muscle Use, Decreased Breath Sounds, Other (on 4lpm) Cardiovascular: Regular Rate, Rhythm, No Murmur Gastrointestinal: Normal Bowel Sounds, Non Tender, Soft Neurologic/Psychiatric: Alert, Disoriented Results/Procedures Lab Patient resulted labs reviewed. Imaging: Reviewed Imaging Report Assessment/Plan Assessment and Plan Assess & Plan/Chief Complaint Sepsis due to UTI BPH UA consistent with UTI Urine culture growing citrobacter freundii, sensitive to cefepime- completed course yesterday Finasteride Flomax Recurrent UTIs per , urology consulted COVID Tested positive on 10/04 s/p vaccine x2 s/p MAB 10/06 Hard to distinguish exactly when symptoms started but likely 10/03 with increased cough and fever, hopefully will be able come out of isolation on 11/13 No further fevers since 10/05 Relatively stable on oxygen level and only needs increase when he takes o xygen off Discussed current prognosis with his Julia as above, will maintain DNR and monitor how he does over the next few days before deciding on comfort care or not Lung mass- likely already metastatic cancer given lymphadenopathy- POA Weight loss CXR with right apical opacity CT Chest with right apical lung masses and lymphadenopathy Brain MRI negative for metastatic disease Dr Moreau consulted, appreciate recs Will need biopsy, when clinically improved Anemia Iron deficient, will transfuse iron prior to DC once doing better from infectious disease standpoint Debility PT/OT special services director consulted, appreciate recs received auth at [facility] but now COVID positive so will have to time DC for when he is clinically stable and they are willing to accept DVT prophylaxis: Lovenox Diagnosis/Problems Diagnosis/Problems (1) Sepsis due to urinary tract infection Status: Acute (2) Mass of right lung Status: Acute (3) BPH (benign prostatic hyperplasia) Status: Acute Qualifiers: Lower urinary tract symptom presence: symptoms present Lower urinary tract symptom detail: incomplete bladder emptying Qualified Codes: N40.1 - Benign prostatic hyperplasia with lower urinary tract symptoms; R39.14 - Feeling of incomplete bladder emptying (4) Weight loss Status: Acute (5) Anemia Status: Acute Qualifiers: Anemia type: iron deficiency Iron deficiency anemia type: unspecified iron deficiency Qualified Codes: D50.9 - Iron deficiency anemia, unspecified (6) Generalized weakness Status: Acute DINA SOLANO MD Oct 10, 2021 09:54
--- NOTE | 2021-10-10 11:22 | Occupational Ther Daily Note ---
OT Current Status-Daily Note Subjective Pt laying in bed, would not respond to OT questions, would not follow instructions and resistive with movements throughout tx. Mental Status/Objective Patient Orientation: Confused Attachments: Oxygen ADL-Treatment Therapy Code Descriptions/Definitions Functional Point Measure: 0=Not Assessed/NA 4=Minimal Assistance 1=Total Assistance 5=Supervision or Setup 2=Maximal Assistance 6=Modified Point 3=Moderate Assistance 7=Complete IndependenceSCALE: Activities may be completed with or without assistive devices. 9-Cnbdcoriii-wxurpdb completes the activity by him/herself with no assistance from a helper. 5-Set-up or Clean-up Assistance-helper sets up or cleans up; patient completes activity. [place] assists only prior to or following the activity. 4-Supervision or Touching Assistance-helper provides verbal cues and/or touching/steadying and/or contact guard assistance as patient completes activity. Assistance may be provided throughout the activity or intermittently. 3-Partial/Moderate Assistance-helper does LESS THAN HALF the effort. [place] lifts, holds or supports trunk or limbs, but provides less than half the effort. 2-Substantial/Maximal Assistance-helper does MORE THAN HALF the effort. [place] lifts or holds trunk or limbs and provides more than half the effort. 9-Hgpsvkvzo-oblibm does ALL the effort. Patient does none of the effort to complete the activity. Or, the assistance of 2 or more helpers is required for the patient to complete the activity. If activity was not attempted, code reason: 7-Patient Refused. 9-Not Applicable-not attempted and the patient did not perform the activity before the current illness, exacerbation or injury. 10-Not Attempted due to Environmental Limitations-(lack of equipment, weather restraints, etc.). 88-Not Attempted due to Medical Conditions or Safety Concerns. Oral Hygiene (QC): 1 (total assist) Other Treatment Pt laying in bed, eyes closed. Pt would not open eyes, when OT asked a question he would not respond. Pt transferred supine to sit EOB dependently assist x2, leaning back hard while seated EOB. Pt transferred supine, dependently, assist x 2. Pt's O2 saturation dropped to 82%, increased back to 90% within several seconds. OT placed oral swab in pt's mouth, instructed him to brush his gums. He did not initiate movement. OT attempted to perform hand over hand assist, pt resistive to movements, not allowing OT to perform hand over hand assist. OT then dependently brushed pt's gums with swab. OT attempted PROM exercises, pt tolerated x2 reps LUE shoulder flexion, x1 rep RUE shoulder flexion, then resistive to all movements. Pt would not allow ROM at elbows. Post tx, pt in bed, call light in reach and all needs met. Bed alarm activated. Education OT Patient Education: Correct positioning, Energy conservation, Exercise program, Modified ADL techniques, Progress toward Goal/Update tx plan, Purpose of tx/functional activities Teaching Recipient: Patient Teaching Methods: Discussion Response to Teaching: Unable to Comprehend OT Residential Goals Residential Goals Time Frame: Oct 12, 2021 Eating (QC): 3 Oral Hygiene (QC): 2 Upper Body Dressing (QC): 3 Additional Goals: 1-Demonstrate ADL Tasks, 2-Verbalize Understanding, 3- ImproveStrength/Melody 1=Demonstrate adherence to instructed precautions during ADL tasks. 2=Patient will verbalize/demonstrate understanding of assistive devices/modifications for ADL. 3=Patient will improve strength/tolerance for activity to enable patient to perform ADL's. OT Education/Plan Problem List/Assessment Assessment: No Skilled OT Needs ID'd No further skilled OT services indicated at this time. Pt has not made any progress towards goals, and will not actively participate in skilled tx. Pt resistive to all movements, will not follow instructions, and will not answer questions. He is currently dependent with all ADLs. OT will need new orders if/when pt is able to actively participate in skilled tx. D/C from OT. Discharge Recommendations Plan/Recommendations: Discontinue OT Treatment Plan/Plan of Care Patient would benefit from OT for education, treatment and training to promote independence in ADL's, mobility, safety and/or upper extremity function for ADL's. Plan of Care: ADL Retraining, Functional Mobility, UE Funct Exercise/Act Treatment Duration: Oct 12, 2021 Frequency: 5 times per week Estimated Hrs Per Day: .25 hour per day Rehab Potential: Guarded Time/GCodes Start Time: 11:01 Stop Time: 11:11 Total Time Billed (hr/min): 10 Billed Treatment Time 1, FA TEODORO ECHEVERRIA OT Oct 10, 2021 11:22
--- NOTE | 2021-10-10 11:23 | Physical Therapy Daily Note ---
PT Daily Note-Current Subjective Patient in bed pre tx, doesn't communicate much. Appearance Patient in bed post tx with nurse call, phone, tray, heel float on pillow, bed alarm on. Mental Status Patient Orientation: Unable to Assess Transfers SCALE: Activities may be completed with or without assistive devices. 3-Tjjfgtmxln-sihhjoo completes the activity by him/herself with no assistance from a helper. 5-Set-up or Clean-up Assistance-helper sets up or cleans up; patient completes activity. [place] assists only prior to or following the activity. 4-Supervision or Touching Assistance-helper provides verbal cues and/or touching/steadying and/or contact guard assistance as patient completes activity. Assistance may be provided throughout the activity or intermittently. 3-Partial/Moderate Assistance-helper does LESS THAN HALF the effort. [place] lifts, holds or supports trunk or limbs, but provides less than half the effort. 2-Substantial/Maximal Assistance-helper does MORE THAN HALF the effort. [place] lifts or holds trunk or limbs and provides more than half the effort. 5-Npfazuqnu-mitgar does ALL the effort. Patient does none of the effort to complete the activity. Or, the assistance of 2 or more helpers is required for the patient to complete the activity. If activity was not attempted, code reason: 7-Patient Refused. 9-Not Applicable-not attempted and the patient did not perform the activity before the current illness, exacerbation or injury. 10-Not Attempted due to Environmental Limitations-(lack of equipment, weather restraints, etc.). 88-Not Attempted due to Medical Conditions or Safety Concerns. Roll Left & Right (QC): 1 Sit to Lying (QC): 1 Lying to Sitting/Side of Bed(Q: 1 Patient sits to the side of the bed with assist of 2, after sitting patient resists using forceful back extension and has to lay down. Weight Bearing Right Lower Extremity: Right Weight Bearing/Tolerated Left Lower Extremity: Left Weight Bearing/Tolerated Exercises Supine Ex: Heel Slides, Straight leg raise, Hip abd/add Supine Reps: 20 (mostly PROM but patient assists occasionally) Treatments sitting, LE ROM Assessment Current Status: Poor Progress Patient doesn't participate much and actively resists sometimes. PT Automobile Rental Representative Goals Intermediate Goals PT Automobile Rental Representative Goals Time Frame: Oct 20, 2021 Roll Left & Right (QC): 5 Sit to Lying (QC): 5 Lying-Sitting on Side/Bed(QC): 5 Sit to Stand (QC): 5 Chair/Lid-lj-Nophw Xfer(QC): 5 Toilet Transfer (QC): 5 Walk 10 feet (QC): 5 Walk 50ft with 2 Turns (QC): 5 Walk 150 ft (QC): 5 PT Plan Problem List Problem List: Activity Tolerance, Functional Strength, Safety, Balance, Gait, Transfer, Bed Mobility, ROM Treatment/Plan Treatment Plan: Continue Plan of Care Treatment Plan: Bed Mobility, Education, Functional Activity Melody, Functional Strength, Gait, Safety, Therapeutic Exercise, Transfers Treatment Duration: Oct 20, 2021 Frequency: 5 times per week Estimated Hrs Per Day: .25 hour per day Patient and/or Family Agrees t: Yes Safety Risks/Education Patient Education: Correct Positioning, Safety Issues Teaching Recipient: Patient Teaching Methods: Demonstration, Discussion Response to Teaching: Reinforcement Needed Time/GCodes Time In: 1101 Time Out: 1111 Total Billed Treatment Time: 10 Total Billed Treatment 1 visit EX MICHAEL RICHTER PT Oct 10, 2021 11:22
--- NOTE | 2021-10-10 12:29 | Speech Therapy Progress Note ---
Therapy Progress Note Patient is unable to adequately participate with speech/cognitive assessment at this time. Discharge speech order for evaluation. STACEY AYOUB Oct 10, 2021 12:29
[2021-10-10] MEDS: ENOXAPARIN 40 MG/0.4 ML (LOVENOX) SYR SQ SCH (13:08)
[2021-10-10 16:24] VITALS: BP 139/68
[2021-10-10] MEDS: TAMSULOSIN 0.4 MG (FLOMAX) CAP PO SCH (16:50)
[2021-10-10] MEDS: LATANOPROST 0.005% (XALATAN) OPHTH SOLN 2.5 ML OS SCH (20:39)
[2021-10-10] MEDS ORDERED: RT-ALBUTEROL HFA 8.5 GM INHALER IH PRN (21:45)
[2021-10-11 00:17] VITALS: BP 139/68
[2021-10-11] MEDS: LORazepam INJ 2 MG/ML (ATIVAN) VIAL IVP PRN ×2 (02:28→16:18)
[2021-10-11] MEDS: SUCRALFATE 1 GM (CARAFATE) TAB PO SCH ×2 (06:07→16:45)
[2021-10-11] MEDS: NS IV 1000 ML 1,000 ML IV SCH ×2 (06:23→16:42)
[2021-10-11 07:14] LABS: HEMATOCRIT 29 % (40-54); HEMOGLOBIN 9.2 g/dL (13.3-17.7); MEAN CORPUSCULAR HEMOGLOBIN 29 pg (25-34); MEAN CORPUSCULAR HGB CONC 32 g/dL (32-36); MEAN CORPUSCULAR VOLUME 93 fL (80-99); MEAN PLATELET VOLUME 9.6 fL (9.0-12.2); PLATELET COUNT 385 10^3/uL (130-400); WHITE BLOOD COUNT 7.8 10^3/uL (4.3-11.0)
[2021-10-11 07:26] LABS: CALCIUM 8.7 MG/DL (8.5-10.1); CREATININE SERUM 0.65 MG/DL (0.60-1.30); POTASSIUM 3.8 MMOL/L (3.6-5.0)
[2021-10-11 07:35] VITALS: BP 151/68
[2021-10-11] MEDS: PANTOPRAZOLE 40 MG (PROTONIX) VIAL IV SCH (08:37)
[2021-10-11] MEDS: ASPIRIN 81 MG CHEW (CHILDREN'S ASA) PO SCH (08:41)
[2021-10-11] MEDS: TIMOLOL MALEATE 0.5% 5 ML (TIMOPTIC) BTL OS SCH ×2 (08:42→20:14)
[2021-10-11] MEDS: MONTELUKAST 10 MG (SINGULAIR) TAB PO SCH (08:42)
[2021-10-11] MEDS: CLOPIDOGREL 75 MG (PLAVIX) TABLET PO SCH (08:42)
[2021-10-11] MEDS: FINASTERIDE (PROSCAR) 5 MG TAB PO SCH (08:42)
[2021-10-11] MEDS: OLANZapine 5 MG ODT (ZyPREXA ZYDIS) PO SCH (08:42)
[2021-10-11] MEDS: BRIMONIDINE 0.2% (ALPHAGAN) OPHTH SOLN 5 ML BTL OS SCH ×3 (08:42→20:15)
--- NOTE | 2021-10-11 10:32 | Physical Therapy Daily Note ---
PT Daily Note-Current Subjective Patient in bed pre tx, opens eyes a little but wont communicate. Appearance Patient in bed post tx with nurse call, phone, tray, all needs met, bed alarm on. Mental Status Patient Orientation: Unable to Assess, Eyes Open, Unresponsive, Listless Transfers SCALE: Activities may be completed with or without assistive devices. 8-Skjsgeujwu-ljymaex completes the activity by him/herself with no assistance from a helper. 5-Set-up or Clean-up Assistance-helper sets up or cleans up; patient completes activity. Delano assists only prior to or following the activity. 4-Supervision or Touching Assistance-helper provides verbal cues and/or touching/steadying and/or contact guard assistance as patient completes activity. Assistance may be provided throughout the activity or intermittently. 3-Partial/Moderate Assistance-helper does LESS THAN HALF the effort. Delano lifts, holds or supports trunk or limbs, but provides less than half the effort. 2-Substantial/Maximal Assistance-helper does MORE THAN HALF the effort. Delano lifts or holds trunk or limbs and provides more than half the effort. 3-Cqyydrhib-czcgye does ALL the effort. Patient does none of the effort to complete the activity. Or, the assistance of 2 or more helpers is required for the patient to complete the activity. If activity was not attempted, code reason: 7-Patient Refused. 9-Not Applicable-not attempted and the patient did not perform the activity before the current illness, exacerbation or injury. 10-Not Attempted due to Environmental Limitations-(lack of equipment, weather restraints, etc.). 88-Not Attempted due to Medical Conditions or Safety Concerns. Weight Bearing Right Lower Extremity: Right Weight Bearing/Tolerated Left Lower Extremity: Left Weight Bearing/Tolerated Exercises Attempted to get patient to perform LE exercise but he would not participate even with assist from therapist. Attempted LE PROM and patient would let thera pist do a little but after a while he resisted all movement. Treatments LE PROM Assessment Current Status: Poor Progress Patient will not participate today and resists most PROM PT Alf Goals Lace Winder Goals PT Lace Winder Goals Time Frame: Oct 20, 2021 Roll Left & Right (QC): 5 Sit to Lying (QC): 5 Lying-Sitting on Side/Bed(QC): 5 Sit to Stand (QC): 5 Chair/Nof-sj-Krdio Xfer(QC): 5 Toilet Transfer (QC): 5 Walk 10 feet (QC): 5 Walk 50ft with 2 Turns (QC): 5 Walk 150 ft (QC): 5 PT Plan Problem List Problem List: Activity Tolerance, Functional Strength, Safety, Balance, Gait, Transfer, Bed Mobility, ROM Treatment/Plan Treatment Plan: Continue Plan of Care Treatment Plan: Bed Mobility, Education, Functional Activity Melody, Functional Strength, Gait, Safety, Therapeutic Exercise, Transfers Treatment Duration: Oct 20, 2021 Frequency: 5 times per week Estimated Hrs Per Day: .25 hour per day Patient and/or Family Agrees t: Yes Safety Risks/Education Patient Education: Correct Positioning (heel float on pillow when done), Safety Issues Teaching Recipient: Patient Teaching Methods: Demonstration, Discussion Response to Teaching: Reinforcement Needed Time/GCodes Time In: 1011 Time Out: 1019 Total Billed Treatment Time: 8 Total Billed Treatment 1 visit EX 8' MICHAEL FARR PT Oct 11, 2021 10:32
--- NOTE | 2021-10-11 10:48 | Progress Note - Hospitalist ---
Subjective HPI/CC On Admission Date Seen by Provider: Oct 11, 2021 Time Seen by Provider: 10:29 Sola Cunningham Jr is an 81 year old male with PMH HTN, HLD, T2DM, who presented with fevers. He was recently admitted in [place] due to UTI. He completed a course of antibiotics. His reported that he was very weak. He is slightly confused on my exam. He reports having fevers and chills. He denies chest pain and shortness of breath. He denies abdominal pain. He denies nausea and vomiting. He reports significant weight loss. He reports anorexia. He is a former smoker. Subjective/Events-last exam Pt reports doing "not so good." Aide at bedside and changing brief. Helped assist to lift him in bed. He grimaced but otherwise did not seem uncomfortable. I called and updated his to his current status. No clinical changes at this time though we continue to talk about the unpredictable nature of COVID and that we will keep her updated as we are able. Objective Exam Vital Signs Vital Signs Date Time Temp Pulse Resp B/P (MAP) Pulse Ox O2 Delivery O2 Flow Rate FiO2 10/11/21 08:00 High Flow N/C 4.00 10/11/21 07:35 36.5 94 26 151/68 (95) 94 10/05/21 09:15 40 Capillary Refill : Less Than 3 Seconds General Appearance: No Apparent Distress, Chronically ill, Thin Respiratory: No Accessory Muscle Use, Decreased Breath Sounds, Other (on 3lpm) Cardiovascular: Regular Rate, Rhythm, No Murmur Neurologic/Psychiatric: Alert, Disoriented Results/Procedures Lab Laboratory Tests 10/11/21 07:00 Patient resulted labs reviewed. Imaging: Reviewed Imaging Report Assessment/Plan Assessment and Plan Assess & Plan/Chief Complaint COVID Tested positive on 10/04 s/p vaccine x2 s/p MAB 10/06 Hard to distinguish exactly when symptoms started but likely 10/03 with increased cough and fever, hopefully will be able come out of isolation on 10/13 No further fevers since 10/05 Relatively stable on oxygen level and only needs increase when he takes oxygen off Discussed current prognosis with his Julia as above, will maintain DNR and monitor how he does over the next few days before deciding on comfort care or not Less alert today but no other signs of declining status- stable on oxygen- again discussed with the volatile nature of COVID and how he is entering the phase where he may start to decline, she expressed understanding and she was informed that we will update her as we are able regarding his status but that it can change quickly Sepsis due to UTI- resolved BPH UA consistent with UTI Urine culture growing citrobacter freundii, sensitive to cefepime- completed course yesterday Finasteride Flomax Recurrent UTIs per , urology consulted Lung mass- likely already metastatic cancer given lymphadenopathy- POA Weight loss CXR with right apical opacity CT Chest with right apical lung masses and lymphadenopathy Brain MRI negative for metastatic disease Dr Moreau consulted, appreciate recs Will need biopsy, when clinically improved Anemia Iron deficient, will transfuse iron prior to DC once doing better from infectious disease standpoint Debility PT/OT patient services technician consulted, appreciate recs received auth at [facility] but now COVID positive so will have to time DC for when he is clinically stable and they are willing to accept DVT prophylaxis: Lovenox Diagnosis/Problems Diagnosis/Problems (1) Sepsis due to urinary tract infection Status: Acute (2) Mass of right lung Status: Acute (3) BPH (benign prostatic hyperplasia) Status: Acute Qualifiers: Lower urinary tract symptom presence: symptoms present Lower urinary tract symptom detail: incomplete bladder emptying Qualified Codes: N40.1 - Benign prostatic hyperplasia with lower urinary tract symptoms; R39.14 - Feeling of incomplete bladder emptying (4) Weight loss Status: Acute (5) Anemia Status: Acute Qualifiers: Anemia type: iron deficiency Iron deficiency anemia type: unspecified iron deficiency Qualified Codes: D50.9 - Iron deficiency anemia, unspecified (6) Generalized weakness Status: Acute DINA SOLANO MD Oct 11, 2021 10:48
[2021-10-11 11:31] VITALS: BP 171/66
[2021-10-11] MEDS: ENOXAPARIN 40 MG/0.4 ML (LOVENOX) SYR SQ SCH (13:04)
[2021-10-11] MEDS: GLYCOPYRROLATE 0.2 MG/ML (ROBINUL) 2 ML VIAL IV PRN (16:43)
[2021-10-11 16:45] VITALS: BP 102/59
[2021-10-11] MEDS: TAMSULOSIN 0.4 MG (FLOMAX) CAP PO SCH (16:45)
[2021-10-11] MEDS: LATANOPROST 0.005% (XALATAN) OPHTH SOLN 2.5 ML OS SCH (20:16)
[2021-10-11 20:22] VITALS: BP 149/90
[2021-10-12 00:22] VITALS: BP 166/81
[2021-10-12] MEDS: NS IV 1000 ML 1,000 ML IV SCH (02:48)
[2021-10-12] MEDS: LORazepam INJ 2 MG/ML (ATIVAN) VIAL IVP PRN (05:15)
[2021-10-12] MEDS: SUCRALFATE 1 GM (CARAFATE) TAB PO SCH (05:20)
[2021-10-12 07:50] VITALS: BP 148/51
[2021-10-12] MEDS: PANTOPRAZOLE 40 MG (PROTONIX) VIAL IV SCH (08:00)
[2021-10-12] MEDS: BRIMONIDINE 0.2% (ALPHAGAN) OPHTH SOLN 5 ML BTL OS SCH ×3 (09:00→20:00)
[2021-10-12] MEDS: FINASTERIDE (PROSCAR) 5 MG TAB PO SCH (09:00)
[2021-10-12] MEDS: OLANZapine 5 MG ODT (ZyPREXA ZYDIS) PO SCH (09:00)
[2021-10-12] MEDS: CLOPIDOGREL 75 MG (PLAVIX) TABLET PO SCH (09:00)
[2021-10-12] MEDS: TIMOLOL MALEATE 0.5% 5 ML (TIMOPTIC) BTL OS SCH ×2 (09:00→13:28)
[2021-10-12] MEDS: MONTELUKAST 10 MG (SINGULAIR) TAB PO SCH (09:00)
[2021-10-12] MEDS: ASPIRIN 81 MG CHEW (CHILDREN'S ASA) PO SCH (09:00)
--- NOTE | 2021-10-12 11:55 | Physical Therapy Progress Note ---
Therapy Progress Note PT to dismiss patient from services due to decline in medical status. Patient is unable to actively participate with skilled therapy. Consult with RN on status. ARIANNE THACKER PT Oct 12, 2021 11:55
--- NOTE | 2021-10-12 12:48 | Progress Note - Hospitalist ---
Subjective HPI/CC On Admission Date Seen by Provider: Oct 12, 2021 Time Seen by Provider: 10:30 Sola Cunningham Jr is an 81 year old male with PMH HTN, HLD, T2DM, who presented with fevers. He was recently admitted in [place] due to UTI. He completed a course of antibiotics. His reported that he was very weak. He is slightly confused on my exam. He reports having fevers and chills. He denies chest pain and shortness of breath. He denies abdominal pain. He denies nausea and vomiting. He reports significant weight loss. He reports anorexia. He is a former smoker. Subjective/Events-last exam He is sleeping on my arrival. He wakes up to physical stimuli. He is not responding verbally. He seems agitated. Objective Exam Vital Signs Vital Signs Date Time Temp Pulse Resp B/P (MAP) Pulse Ox O2 Delivery O2 Flow Rate FiO2 10/12/21 10:35 97 High Flow N/C 2.00 10/12/21 07:50 36.7 69 18 148/51 (83) Capillary Refill : Less Than 3 Seconds General Appearance: Chronically ill, Thin Respiratory: Lungs Clear, Normal Breath Sounds, No Respiratory Distress Cardiovascular: Regular Rate, Rhythm, No Edema, No Murmur Gastrointestinal: Normal Bowel Sounds, Soft Extremity: Normal Inspection, Pedal Edema Neurologic/Psychiatric: Disoriented, Other (agitated) Skin: Normal Color, Warm/Dry Results/Procedures Lab Patient resulted labs reviewed. Imaging: Reviewed Imaging Report Assessment/Plan Assessment and Plan Assess & Plan/Chief Complaint COVID-19 Acute respiratory failure with hypoxia Likely lung cancer Severe protein calorie malnutrition Weight loss Poor prognosis Tested positive on 10/04 s/p vaccine x2 s/p monoclonal antibody 10/06 CXR with right apical opacity CT Chest with right apical lung masses and lymphadenopathy Brain MRI negative for metastatic disease Dr Moreau consulted, appreciate recs Needs biopsy when clinically improved Worsening condition Discussed decline and poor prognosis with Gin, considering comfort measures, will call back after discussion with children Anemia Iron deficient, will transfuse iron prior to DC once doing better from infectious disease standpoint BPH Finasteride Flomax Debility PT/OT disability services coordinator consulted, appreciate recs Planned for [facility] prior to positive COVID DVT prophylaxis: Lovenox Sepsis due to UTI, resolved Diagnosis/Problems Diagnosis/Problems (1) COVID-19 Status: Acute (2) Mass of right lung Status: Acute (3) Weight loss Status: Acute (4) Poor prognosis Status: Acute (5) Sepsis due to urinary tract infection Status: Resolved Resolution Date/Time: 10/12/21 @ 12:48 (6) BPH (benign prostatic hyperplasia) Status: Acute Qualifiers: Lower urinary tract symptom presence: symptoms present Lower urinary tract symptom detail: incomplete bladder emptying Qualified Codes: N40.1 - Benign prostatic hyperplasia with lower urinary tract symptoms; R39.14 - Feeling of incomplete bladder emptying (7) Anemia Status: Acute Qualifiers: Anemia type: iron deficiency Iron deficiency anemia type: unspecified iron deficiency Qualified Codes: D50.9 - Iron deficiency anemia, unspecified JOSEPH VENEGAS MD Oct 12, 2021 12:48
[2021-10-12] MEDS: ENOXAPARIN 40 MG/0.4 ML (LOVENOX) SYR SQ SCH (15:18)
[2021-10-12 16:21] VITALS: BP 157/84
[2021-10-12] MEDS ORDERED: SALIVA STIMULANT MOUTH SPRAY (BIOTENE) 1.5 OZ MM PRN (16:30)
[2021-10-12] MEDS ORDERED: ACETAMINOPHEN 650 MG SUPP (TYLENOL) PR PRN (16:30)
[2021-10-12] MEDS ORDERED: LORazepam INJ 2 MG/ML (ATIVAN) VIAL IVP PRN (16:30)
[2021-10-12] MEDS ORDERED: RT-ALBUTEROL/IPRATROPIUM 3 ML (DUONEB) VIAL INH PRN (16:30)
[2021-10-12] MEDS ORDERED: ONDANSETRON 4 MG/2 ML (SDV) Z0FRAN IVP PRN (16:30)
[2021-10-12] MEDS ORDERED: BISACODYL 10 MG SUPP (DULCOLAX) PR PRN (16:30)
[2021-10-12] MEDS ORDERED: ARTIFICAL TEARS 0.4 ML UNIT DOSE (REFRESH PLUS) OU PRN (16:30)
[2021-10-12] MEDS ORDERED: morphine INJ 4 MG/ML 1 ML (VIAL/SYRINGE) IV PRN (16:30)
[2021-10-12] MEDS ORDERED: PROMETHAZINE INJ 25 MG/ML (PHENERGAN) AMP IVP PRN (16:30)
[2021-10-12] MEDS: LATANOPROST 0.005% (XALATAN) OPHTH SOLN 2.5 ML OS SCH (20:00)
[2021-10-13] MEDS: TIMOLOL MALEATE 0.5% 5 ML (TIMOPTIC) BTL OS SCH ×2 (09:22→20:09)
[2021-10-13] MEDS: BRIMONIDINE 0.2% (ALPHAGAN) OPHTH SOLN 5 ML BTL OS SCH ×3 (09:23→20:08)
--- NOTE | 2021-10-13 19:04 | Progress Note - Hospitalist ---
Subjective HPI/CC On Admission Date Seen by Provider: Oct 13, 2021 Time Seen by Provider: 11:50 Sola Cunningham Jr is an 81 year old male with PMH HTN, HLD, T2DM, who presented with fevers. He was recently admitted in [place] due to UTI. He completed a course of antibiotics. His reported that he was very weak. He is slightly confused on my exam. He reports having fevers and chills. He denies chest pain and shortness of breath. He denies abdominal pain. He denies nausea and vomiting. He reports significant weight loss. He reports anorexia. He is a former smoker. Subjective/Events-last exam He opens his eyes but will not speak. He becomes agitated when I try to examine him and grunts. He is otherwise uncommunicative. Objective Exam Vital Signs Vital Signs Date Time Temp Pulse Resp B/P (MAP) Pulse Ox O2 Delivery O2 Flow Rate FiO2 10/13/21 08:00 100 High Flow N/C 3.00 10/12/21 16:21 36.4 76 18 157/84 (108) Capillary Refill : Less Than 3 Seconds General Appearance: No Apparent Distress, Chronically ill, Cachetic Respiratory: No Respiratory Distress, Decreased Breath Sounds Cardiovascular: Regular Rate, Rhythm, No Murmur Gastrointestinal: Normal Bowel Sounds, Soft Extremity: Normal Inspection, No Pedal Edema Neurologic/Psychiatric: Alert, Depressed Affect, Other (agitated, uncooperative) Results/Procedures Lab Patient resulted labs reviewed. Imaging: Reviewed Imaging Report Assessment/Plan Assessment and Plan Assess & Plan/Chief Complaint COVID-19 Acute respiratory failure with hypoxia Likely lung cancer Severe protein calorie malnutrition Weight loss Poor prognosis Comfort measures only status Anemia BPH Debility Transitioned to comfort measures only Comfort care order set in place Possible discharge to [facility] on hospice pending progression Diagnosis/Problems Diagnosis/Problems (1) COVID-19 Status: Acute (2) Mass of right lung Status: Acute (3) Weight loss Status: Acute (4) Poor prognosis Status: Acute (5) Sepsis due to urinary tract infection Status: Resolved Resolution Date/Time: 10/12/21 @ 12:48 (6) BPH (benign prostatic hyperplasia) Status: Acute Qualifiers: Lower urinary tract symptom presence: symptoms present Lower urinary tract symptom detail: incomplete bladder emptying Qualified Codes: N40.1 - Benign prostatic hyperplasia with lower urinary tract symptoms; R39.14 - Feeling of incomplete bladder emptying (7) Anemia Status: Acute Qualifiers: Anemia type: iron deficiency Iron deficiency anemia type: unspecified iron deficiency Qualified Codes: D50.9 - Iron deficiency anemia, unspecified JOSEPH VENEGAS MD Oct 13, 2021 19:04
[2021-10-13] MEDS: LATANOPROST 0.005% (XALATAN) OPHTH SOLN 2.5 ML OS SCH (20:09)
[2021-10-14] MEDS: BRIMONIDINE 0.2% (ALPHAGAN) OPHTH SOLN 5 ML BTL OS SCH ×3 (10:04→19:39)
[2021-10-14] MEDS: TIMOLOL MALEATE 0.5% 5 ML (TIMOPTIC) BTL OS SCH ×2 (10:04→19:39)
--- NOTE | 2021-10-14 11:49 | Progress Note - Hospitalist ---
Subjective HPI/CC On Admission Date Seen by Provider: Oct 14, 2021 Time Seen by Provider: 10:35 Sola Cunningham Jr is an 81 year old male with PMH HTN, HLD, T2DM, who presented with fevers. He was recently admitted in [place] due to UTI. He completed a course of antibiotics. His reported that he was very weak. He is slightly confused on my exam. He reports having fevers and chills. He denies chest pain and shortness of breath. He denies abdominal pain. He denies nausea and vomiting. He reports significant weight loss. He reports anorexia. He is a former smoker. Subjective/Events-last exam He is awake and alert. He is more responsive today. He talks to me and is able to tell me his name. He is confused. He denies pain. Objective Exam Vital Signs Vital Signs Date Time Temp Pulse Resp B/P (MAP) Pulse Ox O2 Delivery O2 Flow Rate FiO2 10/13/21 20:00 High Flow N/C 3.00 10/13/21 08:00 100 10/12/21 16:21 36.4 76 18 157/84 (108) Capillary Refill : Less Than 3 Seconds General Appearance: No Apparent Distress, Chronically ill, Thin Respiratory: No Respiratory Distress, Decreased Breath Sounds Cardiovascular: Regular Rate, Rhythm, No Murmur Gastrointestinal: Normal Bowel Sounds, Soft Extremity: Normal Inspection, No Pedal Edema Neurologic/Psychiatric: Alert, Disoriented, Motor Weakness Skin: Cool, Pallor Results/Procedures Lab Patient resulted labs reviewed. Imaging: Reviewed Imaging Report Assessment/Plan Assessment and Plan Assess & Plan/Chief Complaint COVID-19 Acute respiratory failure with hypoxia Likely lung cancer Severe protein calorie malnutrition Weight loss Poor prognosis Comfort measures only status Anemia BPH Debility Transitioned to comfort measures only Comfort care order set in place Possible discharge to [facility] on hospice pending progression Diagnosis/Problems Diagnosis/Problems (1) COVID-19 Status: Acute (2) Mass of right lung Status: Acute (3) Weight loss Status: Acute (4) Poor prognosis Status: Acute (5) Sepsis due to urinary tract infection Status: Resolved Resolution Date/Time: 10/12/21 @ 12:48 (6) BPH (benign prostatic hyperplasia) Status: Acute Qualifiers: Lower urinary tract symptom presence: symptoms present Lower urinary tract symptom detail: incomplete bladder emptying Qualified Codes: N40.1 - Benign prostatic hyperplasia with lower urinary tract symptoms; R39.14 - Feeling of incomplete bladder emptying (7) Anemia Status: Acute Qualifiers: Anemia type: iron deficiency Iron deficiency anemia type: unspecified iron deficiency Qualified Codes: D50.9 - Iron deficiency anemia, unspecified JOSEPH VENEGAS MD Oct 14, 2021 11:49
[2021-10-14] MEDS: LATANOPROST 0.005% (XALATAN) OPHTH SOLN 2.5 ML OS SCH (19:39)
[2021-10-15] MEDS: BRIMONIDINE 0.2% (ALPHAGAN) OPHTH SOLN 5 ML BTL OS SCH ×3 (10:13→22:41)
[2021-10-15] MEDS: TIMOLOL MALEATE 0.5% 5 ML (TIMOPTIC) BTL OS SCH ×2 (10:14→13:07)
--- NOTE | 2021-10-15 10:50 | Progress Note - Hospitalist ---
Subjective HPI/CC On Admission Date Seen by Provider: Oct 15, 2021 Time Seen by Provider: 09:40 Sola Cunningham Jr is an 81 year old male with PMH HTN, HLD, T2DM, who presented with fevers. He was recently admitted in [place] due to UTI. He completed a course of antibiotics. His reported that he was very weak. He is slightly confused on my exam. He reports having fevers and chills. He denies chest pain and shortness of breath. He denies abdominal pain. He denies nausea and vomiting. He reports significant weight loss. He reports anorexia. He is a former smoker. Subjective/Events-last exam He is sleeping and minimally responsive. He does not open his eyes. Gin is at the bedside and all her questions and concerns were addressed. Objective Exam Vital Signs Vital Signs Date Time Temp Pulse Resp B/P (MAP) Pulse Ox O2 Delivery O2 Flow Rate FiO2 10/15/21 08:00 High Flow N/C 2.00 10/14/21 08:00 93 10/12/21 16:21 36.4 76 18 157/84 (108) Capillary Refill : Less Than 3 Seconds General Appearance: No Apparent Distress, Chronically ill, Thin Respiratory: No Respiratory Distress, Decreased Breath Sounds Cardiovascular: Regular Rate, Rhythm, No Edema Gastrointestinal: Normal Bowel Sounds, Soft Extremity: Normal Inspection, No Pedal Edema Neurologic/Psychiatric: Disoriented (lethargic, uncooperative) Skin: Mottled, Pallor Results/Procedures Lab Patient resulted labs reviewed. Assessment/Plan Assessment and Plan Assess & Plan/Chief Complaint COVID-19 Acute respiratory failure with hypoxia Likely lung cancer Severe protein calorie malnutrition Weight loss Poor prognosis Anemia BPH Debility would like to try therapy to see if he can get better to have a biopsy and treatment She also would like him to be kept comfortable at the end of his life Discontinue comfort care order PT/OT Supportive care Diagnosis/Problems Diagnosis/Problems (1) COVID-19 Status: Acute (2) Mass of right lung Status: Acute (3) Weight loss Status: Acute (4) Poor prognosis Status: Acute (5) Sepsis due to urinary tract infection Status: Resolved Resolution Date/Time: 10/12/21 @ 12:48 (6) BPH (benign prostatic hyperplasia) Status: Acute Qualifiers: Lower urinary tract symptom presence: symptoms present Lower urinary tract symptom detail: incomplete bladder emptying Qualified Codes: N40.1 - Benign prostatic hyperplasia with lower urinary tract symptoms; R39.14 - Feeling of incomplete bladder emptying (7) Anemia Status: Acute Qualifiers: Anemia type: iron deficiency Iron deficiency anemia type: unspecified iron deficiency Qualified Codes: D50.9 - Iron deficiency anemia, unspecified JOSEPH VENEGAS MD Oct 15, 2021 10:50
[2021-10-15 11:54] VITALS: BP 190/69
--- NOTE | 2021-10-15 14:22 | Occupational Therapy Eval ---
OT Evaluation-General/PLF Medical Diagnosis Admission Date Sep 29, 2021 at 17:07 Medical Diagnosis: UTI/anemia Onset Date: Sep 29, 2021 Therapy Diagnosis Therapy Diagnosis: decreased adl status Precautions Precautions/Isolations: Droplet Isolation, Fall Prevention, Standard Precautions Safety Interventions: Bed Exit Alarm Referral Physician: Paige Referral Reason: Evaluation/Treatment Medical History Pertinent Medical History: CVA, DM, GERD, HTN Current History ED due to fever, lethargy/weakness, recently hospitalized in [facility] with UTI. OT richard (10-03-21) "Pt's spouse has to help pt up/down stairs, and assistance with all ADLs including bathing and dressing, as well as changing his brief when he soils it. He is able to complete UE dressing for the most part, requires some assistance at times, total assist showering and LE dressing/footwear, pt has poor motivation to complete tasks himself. Pt's has been caring for him since his stroke in Oct 2020. Pt is mainly sedentary, brings him items/food he wants." Per 10/15/21, pt was going up and down stairs by himself, working on his truck, and able to get pants on by himself all just a week prior to his last UTI. Social History Home: Single Level Current Living Status: Spouse ADL-Prior Level of Function SCALE: Activities may be completed with or without assistive devices. 8-Nkcmrhmusx-wlosnph completes the activity by him/herself with no assistance from a helper. 5-Set-up or Clean-up Assistance-helper sets up or cleans up; patient completes activity. [place] assists only prior to or following the activity. 4-Supervision or Touching Assistance-helper provides verbal cues and/or touching/steadying and/or contact guard assistance as patient completes activity. Assistance may be provided throughout the activity or intermittently. 3-Partial/Moderate Assistance-helper does LESS THAN HALF the effort. [place] lifts, holds or supports trunk or limbs, but provides less than half the effort. 2-Substantial/Maximal Assistance-helper does MORE THAN HALF the effort. [place] lifts or holds trunk or limbs and provides more than half the effort. 7-Nqvrmldvf-xjqdsz does ALL the effort. Patient does none of the effort to complete the activity. Or, the assistance of 2 or more helpers is required for the patient to complete the activity. If activity was not attempted, code reason: 7-Patient Refused. 9-Not Applicable-not attempted and the patient did not perform the activity before the current illness, exacerbation or injury. 10-Not Attempted due to Environmental Limitations-(lack of equipment, weather restraints, etc.). 88-Not Attempted due to Medical Conditions or Safety Concerns. Self Care: Unknown Functional Cognition: Unknown OT Current Status Subjective Pt resting in bed at OT arrival. present. Minimal shaking his head "no" when asked if he was having any pain. Appearance Pt left supine in bed, in room, RN informed. Mental Status/Objective Patient Orientation: Unable to Assess Current Dentures/Partials: Yes ADL-Treatment Eating (QC): 1 Oral Hygiene (QC): 1 Shower/Bathe Self (QC): 1 Upper Body Dressing (QC): 1 Lower Body Dressing (QC): 1 On/Off Footwear (QC): 1 Toileting Hygiene (QC): 1 Pt with eyes slightly open, difficulty formulating words and only makes gurgling sounds. Pt unable to track with eyes. Follows commands ~ 1/10 times after repetition of commands. Unsure if pt resisting or exhibiting increased tone in BUE's. Not safe for OOB/EOB activities this date due to poor safety and lethargy. OT educated on performing gentle PROM exercises and on proper positioning when she is helping him eat. OT also discussed pulmonary aspiration and symptoms to be aware of. No skilled services are warranted at this time as pt is unable to actively participate with skilled therapy. Consult with RN on status. Education OT Patient Education: Correct positioning, Exercise program, Instructions to caregiver, Purpose of tx/functional activities, Rehab process Teaching Recipient: Patient, Family Teaching Methods: Demonstration, Discussion OT Corn Detasseler Goals Corn Detasseler Goals Time Frame: Oct 12, 2021 Eating (QC): 3 Oral Hygiene (QC): 2 Upper Body Dressing (QC): 3 Additional Goals: 1-Demonstrate ADL Tasks, 2-Verbalize Understanding, 3- ImproveStrength/Melody 1=Demonstrate adherence to instructed precautions during ADL tasks. 2=Patient will verbalize/demonstrate understanding of assistive devices/modifications for ADL. 3=Patient will improve strength/tolerance for activity to enable patient to perform ADL's. OT Education/Plan Problem List/Assessment Assessment: No Skilled OT Needs ID'd No further skilled OT services indicated at this time. Pt has not made any progress towards goals, and will not actively participate in skilled tx. Pt resistive to all movements, will not follow instructions, and will not answer questions. He is currently dependent with all ADLs. OT will need new orders if/when pt is able to actively participate in skilled tx. D/C from OT. Discharge Recommendations Plan/Recommendations: Discontinue OT Comment palliative care Treatment Plan/Plan of Care Treatment,Training & Education: Yes Patient would benefit from OT for education, treatment and training to promote independence in ADL's, mobility, safety and/or upper extremity function for ADL's. Plan of Care: Caregiver Training Treatment Duration: Oct 15, 2021 Frequency: 1 time per week Estimated Hrs Per Day: .25 hour per day Rehab Potential: Poor poor prognosis Time/GCodes Start Time: 13:50 Stop Time: 14:08 Total Time Billed (hr/min): 18 Billed Treatment Time 1 visit Ayaka Sanders OT Oct 15, 2021 14:22
--- NOTE | 2021-10-15 14:58 | Physical Therapy Evaluation ---
PT Evaluation-General Medical Diagnosis Admission Date Sep 29, 2021 at 17:07 Medical Diagnosis: UTI/anemia Onset Date: Sep 29, 2021 Therapy Diagnosis Therapy Diagnosis: generalized weakness/debility Precautions Precautions/Isolations: Droplet Isolation, Fall Prevention, Standard Precautions Weight Bear Status Right Lower Extremity: Right Weight Bearing/Tolerated Left Lower Extremity: Left Weight Bearing/Tolerated Referral Physician: Paige Reason for Referral: Evaluation/Treatment Medical History Pertinent Medical History: CVA, DM, GERD, HTN Current History out of Covid isolation on this date. Evaluation per spouse request Reviewed History: Yes Social History Home: Single Level Current Living Status: Spouse Prior Prior Level of Function SCALE: Activities may be completed with or without assistive devices. 0-Ctwapszwfk-vscfwro completes the activity by him/herself with no assistance from a helper. 5-Set-up or Clean-up Assistance-helper sets up or cleans up; patient completes activity. [place] assists only prior to or following the activity. 4-Supervision or Touching Assistance-helper provides verbal cues and/or touching/steadying and/or contact guard assistance as patient completes activity. Assistance may be provided throughout the activity or intermittently. 3-Partial/Moderate Assistance-helper does LESS THAN HALF the effort. [place] lifts, holds or supports trunk or limbs, but provides less than half the effort. 2-Substantial/Maximal Assistance-helper does MORE THAN HALF the effort. [place] lifts or holds trunk or limbs and provides more than half the effort. 4-Sxazrddpd-uecsrd does ALL the effort. Patient does none of the effort to complete the activity. Or, the assistance of 2 or more helpers is required for the patient to complete the activity. If activity was not attempted, code reason: 7-Patient Refused. 9-Not Applicable-not attempted and the patient did not perform the activity before the current illness, exacerbation or injury. 10-Not Attempted due to Environmental Limitations-(lack of equipment, weather restraints, etc.). 88-Not Attempted due to Medical Conditions or Safety Concerns. Bed Mobility: 6 Transfers (B,C,W/C): 6 Gait: 6 Indoor Mobility (Ambulation): Independent PT Evaluation-Current Subjective Spouse present and agrees to PT. Patient mumbles/moans but does not respond. Objective Patient Orientation: Confused, Mumbles, Listless ROM/Strength ROM Lower Extremities bilateral LE WFL Strength Lower Extremities 3-/5 bilateral LE (very resistive due to confusion) Integumentary/Posture Bladder Incontinence: Yes Neuromuscular (Tone, Coordination, Reflexes) diminished coordination Sensory Vision: Unable to Assess Hearing: Unable to Assess Transfers Roll Left to Right (QC): 1 Sit to Lying (QC): 1 Lying to Sitting/Side of Bed(Q: 1 Sit to Stand (QC): 88 Chair/Yvv-sl-Eeqnq Xfer(QC): 88 Gait Does the Patient Walk?: No and Walking Goal NOT indicated Balance Sitting Static: Poor Assessment/Needs 81 y.o. male, post Covid, is currently at dependent LOF and is unable to actively participate with skilled therapy. Patient unable to follow simple direction. O2 2L in place with SAO2 decreasing to 74%. NC placed in patient's mouth with no SAO2 recovery. RN notified. Rehab Potential: Guarded PT Intermediate Goals Intermediate Goals PT Diabetes Nurse Goals Time Frame: Oct 20, 2021 Roll Left & Right (QC): 5 Sit to Lying (QC): 5 Lying-Sitting on Side/Bed(QC): 5 Sit to Stand (QC): 5 Chair/Kdf-hc-Npfiq Xfer(QC): 5 Toilet Transfer (QC): 5 Walk 10 feet (QC): 5 Walk 50ft with 2 Turns (QC): 5 Walk 150 ft (QC): 5 PT Plan Treatment/Plan Treatment Plan: Discontinue PT Treatment Plan: Bed Mobility, Education, Functional Activity Melody, Functional Strength, Gait, Safety, Therapeutic Exercise, Transfers Treatment Duration: Oct 20, 2021 Frequency: 5 times per week Estimated Hrs Per Day: .25 hour per day Patient and/or Family Agrees t: Yes Time/GCodes Time In: 1425 Time Out: 1445 Total Billed Treatment Time: 20 Total Billed Treatment 1 visit EVModC 20 min ARIANNE THACKER PT Oct 15, 2021 14:58
[2021-10-15] MEDS: GLYCOPYRROLATE 0.2 MG/ML (ROBINUL) 2 ML VIAL IV PRN (15:10)
[2021-10-15 15:43] VITALS: BP 161/105
[2021-10-15] MEDS: LORazepam INJ 2 MG/ML (ATIVAN) VIAL IVP PRN ×2 (19:03→22:19)
[2021-10-15] MEDS: LATANOPROST 0.005% (XALATAN) OPHTH SOLN 2.5 ML OS SCH (22:41)
[2021-10-15] MEDS: morphine INJ 4 MG/ML 1 ML (VIAL/SYRINGE) IV PRN (23:52)
[2021-10-16] MEDS: morphine INJ 4 MG/ML 1 ML (VIAL/SYRINGE) IV PRN ×3 (02:44→20:59)
[2021-10-16] MEDS: GLYCOPYRROLATE 0.2 MG/ML (ROBINUL) 2 ML VIAL IV PRN ×2 (02:46→15:31)
[2021-10-16] MEDS: LORazepam INJ 2 MG/ML (ATIVAN) VIAL IVP PRN ×3 (04:25→20:25)
[2021-10-16] MEDS: TIMOLOL MALEATE 0.5% 5 ML (TIMOPTIC) BTL OS SCH ×2 (09:00→19:37)
[2021-10-16] MEDS: BRIMONIDINE 0.2% (ALPHAGAN) OPHTH SOLN 5 ML BTL OS SCH ×3 (09:00→19:37)
--- NOTE | 2021-10-16 11:01 | Progress Note - Hospitalist ---
Subjective HPI/CC On Admission Date Seen by Provider: Oct 16, 2021 Time Seen by Provider: 09:40 Sola Cunningham Jr is an 81 year old male with PMH HTN, HLD, T2DM, who presented with fevers. He was recently admitted in [place] due to UTI. He completed a course of antibiotics. His reported that he was very weak. He is slightly confused on my exam. He reports having fevers and chills. He denies chest pain and shortness of breath. He denies abdominal pain. He denies nausea and vomiting. He reports significant weight loss. He reports anorexia. He is a former smoker. Subjective/Events-last exam He is in bed and appears comfortable. He is sleeping. His and daughter are at the bedside. Objective Exam Vital Signs Vital Signs Date Time Temp Pulse Resp B/P (MAP) Pulse Ox O2 Delivery O2 Flow Rate FiO2 10/16/21 08:00 Room Air 10/15/21 15:43 37.3 150 22 161/105 (123) 82 3.00 Capillary Refill : Less Than 3 Seconds General Appearance: Chronically ill, Thin Respiratory: No Accessory Muscle Use, No Respiratory Distress Cardiovascular: No Edema, Tachycardia Gastrointestinal: Normal Bowel Sounds, Soft Extremity: Normal Inspection, No Pedal Edema Neurologic/Psychiatric: Disoriented (lethargic), Other (sleeping) Skin: Cool, Mottled Results/Procedures Lab Patient resulted labs reviewed. Assessment/Plan Assessment and Plan Assess & Plan/Chief Complaint COVID-19 Acute respiratory failure with hypoxia Likely metastatic lung cancer Lung masses Mediastinal lymphadenopathy Pericardial effusion Severe protein calorie malnutrition Weight loss Poor prognosis Anemia BPH Debility Comfort measures only status Patient did not participate with therapy yesterday, signed off Comfort care resumed Family at bedside Diagnosis/Problems Diagnosis/Problems (1) COVID-19 Status: Acute (2) Mass of right lung Status: Acute (3) Weight loss Status: Acute (4) Poor prognosis Status: Acute (5) Sepsis due to urinary tract infection Status: Resolved Resolution Date/Time: 10/12/21 @ 12:48 (6) BPH (benign prostatic hyperplasia) Status: Acute Qualifiers: Lower urinary tract symptom presence: symptoms present Lower urinary tract symptom detail: incomplete bladder emptying Qualified Codes: N40.1 - Benign prostatic hyperplasia with lower urinary tract symptoms; R39.14 - Feeling of incomplete bladder emptying (7) Anemia Status: Acute Qualifiers: Anemia type: iron deficiency Iron deficiency anemia type: unspecified iron deficiency Qualified Codes: D50.9 - Iron deficiency anemia, unspecified (8) Comfort measures only status Status: Acute JOSEPH VENEGAS MD Oct 16, 2021 11:01
[2021-10-16] MEDS: LATANOPROST 0.005% (XALATAN) OPHTH SOLN 2.5 ML OS SCH (19:37)
[2021-10-17] MEDS: morphine INJ 4 MG/ML 1 ML (VIAL/SYRINGE) IV PRN ×5 (02:04→18:13)
[2021-10-17] MEDS: LORazepam INJ 2 MG/ML (ATIVAN) VIAL IVP PRN ×2 (07:25→17:37)
[2021-10-17] MEDS: BRIMONIDINE 0.2% (ALPHAGAN) OPHTH SOLN 5 ML BTL OS SCH ×2 (09:00→13:00)
[2021-10-17] MEDS: TIMOLOL MALEATE 0.5% 5 ML (TIMOPTIC) BTL OS SCH (09:00)
[2021-10-17] MEDS: GLYCOPYRROLATE 0.2 MG/ML (ROBINUL) 2 ML VIAL IV PRN (16:38)
--- NOTE | 2021-10-17 22:12 | Progress Note - Hospitalist ---
Subjective HPI/CC On Admission Date Seen by Provider: Oct 17, 2021 Time Seen by Provider: 12:30 Sola Cunningham Jr is an 81 year old male with PMH HTN, HLD, T2DM, who presented with fevers. He was recently admitted in [place] due to UTI. He completed a course of antibiotics. His reported that he was very weak. He is slightly confused on my exam. He reports having fevers and chills. He denies chest pain and shortness of breath. He denies abdominal pain. He denies nausea and vomiting. He reports significant weight loss. He reports anorexia. He is a former smoker. Subjective/Events-last exam He is sleeping and appears comfortable. His daughter is at the bedside. Objective Exam Vital Signs Vital Signs Date Time Temp Pulse Resp B/P (MAP) Pulse Ox O2 Delivery O2 Flow Rate FiO2 10/17/21 08:00 Room Air 10/15/21 15:43 37.3 150 22 161/105 (123) 82 3.00 Capillary Refill : Less Than 3 Seconds General Appearance: No Apparent Distress, Chronically ill, Thin Respiratory: No Accessory Muscle Use, No Respiratory Distress Gastrointestinal: No Distended Extremity: Normal Inspection, No Pedal Edema Neurologic/Psychiatric: Other (obtunded, unresponsive) Skin: Cool, Mottled Results/Procedures Lab Patient resulted labs reviewed. Assessment/Plan Assessment and Plan Assess & Plan/Chief Complaint COVID-19 Acute respiratory failure with hypoxia Likely metastatic lung cancer Lung masses Mediastinal lymphadenopathy Pericardial effusion Severe protein calorie malnutrition Weight loss Poor prognosis Anemia BPH Debility Comfort measures only status Continue comfort care Family at bedside Diagnosis/Problems Diagnosis/Problems (1) COVID-19 Status: Acute (2) Mass of right lung Status: Acute (3) Weight loss Status: Acute (4) Poor prognosis Status: Acute (5) Sepsis due to urinary tract infection Status: Resolved Resolution Date/Time: 10/12/21 @ 12:48 (6) BPH (benign prostatic hyperplasia) Status: Acute Qualifiers: Lower urinary tract symptom presence: symptoms present Lower urinary tract symptom detail: incomplete bladder emptying Qualified Codes: N40.1 - Benign prostatic hyperplasia with lower urinary tract symptoms; R39.14 - Feeling of incomplete bladder emptying (7) Anemia Status: Acute Qualifiers: Anemia type: iron deficiency Iron deficiency anemia type: unspecified iron deficiency Qualified Codes: D50.9 - Iron deficiency anemia, unspecified (8) Comfort measures only status Status: Acute JOSEPH VENEGAS MD Oct 17, 2021 22:11
--- NOTE | 2021-10-18 19:44 | Discharge Summary ---
Discharge Summary Hospital Course Problems/Dx: (1) COVID-19 Status: Acute (2) Mass of right lung Status: Acute (3) Weight loss Status: Acute (4) Poor prognosis Status: Acute (5) Sepsis due to urinary tract infection Status: Resolved (6) BPH (benign prostatic hyperplasia) Status: Acute Qualifiers: Qualified Codes: N40.1 - Benign prostatic hyperplasia with lower urinary tract symptoms; R39.14 - Feeling of incomplete bladder emptying (7) Anemia Status: Acute Qualifiers: Qualified Codes: D50.9 - Iron deficiency anemia, unspecified (8) Comfort measures only status Status: Acute Hospital Course Date of Admission: Sep 29, 2021 at 17:07 Admission Diagnosis : Sepsis due to UTI Family Physician/Provider: HuongLocal Physician Date of Discharge: 10/17/21 Discharge Diagnosis: Acute respiratory failure with hypoxia due to likely metastatic lung cancer, COVID-19 Hospital Course: Sola Cunningham was an 81 year old male who was admitted with sepsis due to UTI. He was treated with IV antibiotics and this improved. His course was complicated by multiple lung masses with lymphadenopathy and pericardial effusion in the setting of significant recent weight loss. His course was also complicated by COVID-19. His condition continued to worsen and a biopsy and staging was unable to be done due to his poor condition. The decision was made to transition him to comfort measures only status. He subsequently on 10/17/2021 at 2015 with his family at the bedside. Labs and Pending Lab Test: Microbiology 09/29/21 Urine Culture - Final, Complete Citrobacter freundii complex Mixed Bacterial Jeanine 09/29/21 Blood Culture - Final, Complete No growth Home Meds Active Bactrim Ds Tablet (Sulfamethoxazole/Trimethoprim) 1 Each Tablet 1 Each PO BID Reported Flomax (Tamsulosin HCl) 0.4 Mg Cap 0.4 Mg PO BID Aspirin 81 Mg Tab.chew 81 Mg PO DAILY Atenolol 25 Mg Tablet 12.5 Mg PO BID TAKES OF A 25MG TAB Latanoprost 0.005% Eye Drop (Latanoprost/Pf) 7.5 Ml Drops 1 Drop OS HS Olanzapine 5 Mg Tablet 5 Mg PO DAILY Pantoprazole Sodium 40 Mg Tablet.dr 40 Mg PO HS Combigan Eye Drops (Brimonidine Tartrate/Timolol) 5 Ml Drops 1 Drop OS BID Montelukast Sodium 10 Mg Tablet 10 Mg PO DAILY Clopidogrel (Clopidogrel Bisulfate) 75 Mg Tablet 75 Mg PO DAILY Metformin HCl ER (Metformin HCl) 500 Mg Tab.er.24h 500 Mg PO BIDAC Atorvastatin Calcium 80 Mg Tablet 80 Mg PO HS Finasteride 5 Mg Tablet 5 Mg PO DAILY Sucralfate 1 Gm Tablet 1 Gm PO BIDAC Assessment/Pt Instructions Patient Discharge Planning: <30 minutes discharge planning Discharge Physical Examination Vital Signs Vital Signs Date Time Temp Pulse Resp B/P (MAP) Pulse Ox O2 Delivery O2 Flow Rate FiO2 10/17/21 20:00 Room Air 10/15/21 15:43 37.3 150 22 161/105 (123) 82 3.00 Allergies: Coded Allergies: Tetanus Vaccines and Toxoid (Verified Allergy, Unknown, 09/29/21) ciprofloxacin (Verified Allergy, Unknown, 09/29/21) Discharge Summary Date of Admission Sep 29, 2021 at 17:07 Date of Discharge Oct 17, 2021 at 23:45 Discharge Date: Oct 17, 2021 Discharge Time: 20:15 Admission Diagnosis Sepsis due to UTI Comfort Measures/ End of Life Care: Comfort Measures Advance Care discuss with: family member (s) Plan: initiate discussion, clarifying prognosis, identified end-of-life goals, developed treatment plan Time spent on discussion (min): 30 Cardiopulmonary Arrest: Cardiorespiratory Arrest Date of : Oct 17, 2021 Time of : 20:15 Discharge Diagnosis COVID-19 Acute respiratory failure with hypoxia Likely metastatic lung cancer Lung masses Mediastinal lymphadenopathy Pericardial effusion Severe protein calorie malnutrition Weight loss Poor prognosis Anemia BPH Debility Comfort measures only status (1) COVID-19 Status: Acute (2) Mass of right lung Status: Acute (3) Weight loss Status: Acute (4) Poor prognosis Status: Acute (5) Sepsis due to urinary tract infection Status: Resolved (6) BPH (benign prostatic hyperplasia) Status: Acute Qualifiers: Qualified Codes: N40.1 - Benign prostatic hyperplasia with lower urinary tract symptoms; R39.14 - Feeling of incomplete bladder emptying (7) Anemia Status: Acute Qualifiers: Qualified Codes: D50.9 - Iron deficiency anemia, unspecified (8) Comfort measures only status Status: Acute JOSEPH VENEGAS MD Oct 18, 2021 19:43
== END 2021-10-17 23:45 | disposition expired | DRG 871 ==
LOC: EDUNIT# 13:41 → ER 13:44 → 4TH 17:07
PROVIDERS: ADMIT Internal Medicine; ATTEND Internal Medicine
DX: A41.9 Sepsis, unspecified organism (principal); U07.1 COVID-19; E43 Unspecified severe protein-calorie malnutrition; J96.01 Acute respiratory failure with hypoxia; N39.0 Urinary tract infection, site not specified; C34.11 Malignant neoplasm of upper lobe, right bronchus or lung; C77.1 Secondary and unspecified malignant neoplasm of intrathoracic lymph nodes; Z66 Do not resuscitate; Z51.5 Encounter for palliative care; I31.3 Pericardial effusion (noninflammatory); B96.4 Proteus (mirabilis) (morganii) as the cause of diseases classified elsewhere; D64.9 Anemia, unspecified; I10 Essential (primary) hypertension; E78.5 Hyperlipidemia, unspecified; E78.00 Pure hypercholesterolemia, unspecified; E11.9 Type 2 diabetes mellitus without complications; K21.9 Gastro-esophageal reflux disease without esophagitis; N40.1 Benign prostatic hyperplasia with lower urinary tract symptoms; R32 Unspecified urinary incontinence; R33.8 Other retention of urine; Z68.22 Body mass index [BMI] 22.0-22.9, adult; Z88.1 Allergy status to other antibiotic agents; Z88.7 Allergy status to serum and vaccine
CPT/HCPCS: 36415; 70553; 71045; 71046; 71250; 80048; 80053; 81000; 82607; 82728; 82746; 82805; 82947; 83540; 83550; 83605; 84145; 84443; 85025; 85027; 85379; 85610; 85730; 87040; 87077; 87088; 87186; 87635; 87636; 94640; 94664; 94760